=== PATIENT | female | born 1965 | race Caucasian/White ===

== ENCOUNTER → 2016-04-17 | Outpatient (CLI) | payer MEDICARE ==
--- NOTE | 2016-04-17 10:23 | US ---
EXAMINATION TYPE: US liver DATE OF EXAM: 04/17/2016 9:09 AM COMPARISON: CT chest March 27, 2012. CLINICAL HISTORY: [id number] Abnormal results of liver functions studies. Obese patient EXAM MEASUREMENTS: Liver Length: 17.6 cm Gallbladder Wall: 0.3 cm CBD: 0.4 cm Right Kidney: 9.1 x 4.0 x 5.1 cm TECHNOLOGIST IMPRESSION: Pancreas: tail obscured by overlying midline bowel gas Liver: measures in upper limits of normal at 17.6cm, increased attenuation, increased echogenicity t hroughout - probable fatty infiltration, heterogeneous with 2.0cm hypoechoic area near gallbladder -p robable focal sparring Gallbladder: wnl Evidence for sonographic Plata's sign: no CBD: visualized portions wnl, limited distally by overlying midline bowel gas Right Kidney: 2.1 x 2.2 x 1.7cm hypoechoic area superior pole Visualized pancreas is homogeneous without suspicious mass or ductal dilatation. The liver is heterog eneously hyperechoic in appearance without intrahepatic ductal dilatation. Evaluation for focal alexandra s is suboptimal due to the heterogeneity. Limited images right kidney show no gross hydronephrosis. T here appears to be exophytic 2.2 x 2.1 cm round hypoechoic lesion without corresponding abnormality s een on prior CT at this level, further workup advised. IMPRESSION: Diffuse fatty infiltration of liver is redemonstrated. There is new 2.2 cm round exophyti c hypoechoic lesion right kidney in which solid mass or neoplasm needs to be excluded. Further invest igation with multi phase contrast-enhanced CT or MRI is advised.
== END | disposition home or self-care (01) ==
LOC: RADUSWWP 08:46
PROVIDERS: ATTEND Family Medicine
DX: K76.0 Fatty (change of) liver, not elsewhere classified (principal); N28.9 Disorder of kidney and ureter, unspecified
CPT/HCPCS: 76705

== ENCOUNTER → 2016-05-03 | Outpatient (CLI) | payer MEDICARE ==
--- NOTE | 2016-05-03 19:10 | MR ---
MR abdomen with and without contrast HISTORY: Renal lesion, elevated liver function tests Multiplanar multisequence and postcontrast images through the abdomen following 20 cc MultiHance IV. Exam is correlated to ultrasound liver 17 April 2016, chest CT 27 March 2012 The liver is enlarged. There is marked signal drop on out of phase imaging. No focal mass. There is no abnormal enhancement following contrast administration. The lobular appearance to the upp er pole the right kidney is a chronic finding as noted on CT. There is no evident mass or hydronephro sis. No retroperitoneal adenopathy. The adrenal glands are normal. Gallbladder is contracted. Portal vein show normal enhancement. Hepatic veins enhance. Aorta shows normal caliber. Spleen and pancreas, left kidney are essentially unremarkable. Spleen is at the upper limit of normal for size. Possible small cortical cyst associated with the left kidney. Susceptibility artifact likely due to postoperative changes of the lumbar spine is noted incidentally . There is no pleural effusion. IMPRESSION: Fatty infiltration of the liver. No evident renal mass.
== END ==
LOC: RADMRIMAIN 16:38
PROVIDERS: ATTEND Physician Assistant Medical
DX: K76.0 Fatty (change of) liver, not elsewhere classified (principal); N28.9 Disorder of kidney and ureter, unspecified; R93.429 Abnormal radiologic findings on diagnostic imaging of unspecified kidney
CPT/HCPCS: 74183; A9577

== ENCOUNTER 2016-05-30 19:17 | Emergency (ER) | payer MEDICARE ==
[2016-05-30 19:29] VITALS: RESP 18
--- NOTE | 2016-05-30 19:48 | ED ---
General Adult HPI - General Chief complaint: Extremity Injury, Upper Stated complaint: wrist injury Time Seen by Provider: 05/30/16 19:35 Source: patient, RN notes reviewed Mode of arrival: ambulatory Limitations: no limitations - History of Present Illness Initial comments: This is a 50-year-old female who presents with left hand and wrist pain that started around 5 PM. Patient states she was in the kitchen and lost her balance and fell backwards landing on her butt. Patient did not hit her head or lose consciousness. Patient states she used her left hand to brace her fall and now has pain to the ulnar aspect of the left hand and wrist. Patient has noted some mild swelling to the ulnar aspect of the left wrist. Patient states her symptoms are worse with moving the wrist side to side but she is able to flex and extend the wrist with less pain. Patient denies any numbness/tingling or weakness. Patient denies being on any anticoagulants. Patient denies any recent fever, chills, shortness breath, chest pain, abdominal pain, nausea/ vomiting/diarrhea, back pain, hematuria, headache, or visual changes, or any other complaints. - Related Data Home Medications Medication Instructions Recorded Confirmed Hydrocodone/Acetaminophen 1 tab PO BID PRN 04/01/14 10/04/15 [Hydrocodon-Acetaminophen 5-325] Morphine Sulfate [Morphine Sulfate 30 mg PO BID 04/01/14 10/04/15 ER] Venlafaxine HCl [Venlafaxine HCl 150 mg PO QAM 04/01/14 10/04/15 ER] Cholecalciferol [Vitamin D3] 400 unit PO DAILY 10/04/15 10/04/15 Pregabalin [Lyrica] 150 mg PO BID 10/04/15 10/04/15 Pregabalin [Lyrica] 300 mg PO HS 05/30/16 05/30/16 Allergies Allergy/AdvReac Type Severity Reaction Status Date / Time No Known Allergies Allergy Verified 05/30/16 19:29 Review of Systems ROS Statement: Those systems with pertinent positive or pertinent negative responses have been documented in the HPI. ROS Other: All systems not noted in ROS Statement are negative. Past Medical History Past Medical History: COPD, Hyperlipidemia, Osteoarthritis (OA), Pneumonia, Sleep Apnea/CPAP/BIPAP Additional Past Medical History / Comment(s): CHRONIC BACK PAIN History of Any Multi-Drug Resistant Organisms: None Reported Past Surgical History: Adenoidectomy, Back Surgery Additional Past Surgical History / Comment(s): BACK SURGERY X 5. UPPP. [facility]- [facility] Past Anesthesia/Blood Transfusion Reactions: Motion Sickness, Postoperative Nausea & Vomiting (PONV) Past Psychological History: Depression Smoking Status: Never smoker Past Alcohol Use History: None Reported Past Drug Use History: None Reported - Past Family History Father Family Medical History: Cancer Mother Family Medical History: Cancer General Exam - General Exam Comments Initial Comments: General: The patient is awake and alert, in no distress, and does not appear acutely ill. Neck: The neck is supple, there is no tenderness or JVD. Cardiovascular: There is a regular rate and rhythm. No murmur, rub or gallop is appreciated. Respiratory: Lungs are clear to auscultation, respirations are non-labored, breath sounds are equal. No wheezes, stridor, rales, or rhonchi. Musculoskeletal: There is tenderness to palpation over the ulnar aspect of the left wrist with some mild swelling to this area. There is also mild tenderness to the fourth and fifth proximal metacarpals. There is no tenderness to palpation in the anatomical snuffbox. Patient has limited range of motion of the left wrist due to pain but has full range of motion of the left hand. Patient's strength is 5/5 and Sensation intact. Radial pulses 2+ bilaterally and capillary refill is normal at less than 2 seconds. Neurological: A&O x 3. CN II-XII intact, There are no obvious motor or sensory deficits. Coordination appears grossly intact. Speech is normal. Skin: Skin is warm and dry and no rashes or lesions are noted. Psychiatric: Normal mood and affect. Limitations: no limitations Course Vital Signs 05/30/16 19:27 Temperature 98.5 F Pulse Rate 82 Respiratory 18 Rate Blood Pressure 188/105 O2 Sat by Pulse 96 Oximetry Medical Decision Making - Medical Decision Making This is a 50-year-old female presents with left hand and wrist pain after a fall this evening. On physical exam There is tenderness to palpation over the ulnar aspect of the left wrist with some mild swelling to this area. There is also mild tenderness to the fourth and fifth proximal metacarpals. There is no tenderness to palpation in the anatomical snuffbox. Patient has limited range of motion of the left wrist due to pain but has full range of motion of the left hand. Patient's strength is 5/5 and Sensation intact. Radial pulses 2+ bilaterally and capillary refill is normal at less than 2 seconds. X-rays of the right wrist and right hand were done and reviewed showing: X-ray left hand: Possible chip fracture of the triquetrum on the lateral view. Report by Dr. Dempsey. X-ray left wrist: There is probably a chip fracture of the posterior triquetrum. There is some widening of the radial ulnar joint space that could relate to a ligamentous tear. Reported by Dr. Dempsey. I discussed results with patient. Area of possible triquetral fracture correlates to the patient's point of maximal tenderness. A short arm volar splint to the left upper extremity was placed. Neurovascular was rechecked and is intact. Patient was instructed to stay non-weightbearing to the left upper extremity. Patient was instructed to rest, ice, elevate and keep splint on until follow-up with orthopedics. I discussed Tylenol and Motrin for pain. Patient states she has MS Contin and other pain medications that she takes for chronic back pain at home. Discussed with patient to follow-up with orthopedics in the next 1-2 days. Please return to the [facility] symptoms worsen or for any other concerns. Patient was receptive to this plan and patient will be discharged home. I discussed this case with attending physician Dr. Galarza who agrees the plan as stated above. Disposition Clinical Impression: Triquetral chip fracture Disposition: HOME SELF-CARE Condition: Good Instructions: Wrist Fracture in Adults (ED) Additional Instructions: Please rest, ice, elevate, and use splint for support. Please stay nonweightbearing to the left upper extremity. Please keep splint on until follow-up with orthopedics and do not get the splint. Please use over-the- counter Motrin and/or Tylenol for pain. Please use your at home pain medications for breakthrough pain. Please follow up with orthopedics tomorrow or as soon as possible. Please return to the [facility] for any worsening symptoms or for any further concerns. Referrals: Hiro Díaz DO [Primary Care Provider] - 1-2 days Arnold Carvalho MD [Medical Doctor] - 1-2 days Time of Disposition: 20:19
--- NOTE | 2016-05-30 20:06 | XR ---
EXAMINATION TYPE: XR hand complete LT DATE OF EXAM: 05/30/2016 8:00 PM COMPARISON: NONE HISTORY: Pain after a fall TECHNIQUE: 3 views FINDINGS: On the lateral view there is a 5 mm triangular shaped bony density that could be a chip fra cture of the triquetrum. There is no dislocation. Joint spaces are normal. Metacarpals are intact. IMPRESSION: Possible chip fracture of the triquetrum on the lateral view.
--- NOTE | 2016-05-30 20:08 | XR ---
EXAMINATION TYPE: XR wrist complete LT DATE OF EXAM: 05/30/2016 8:00 PM COMPARISON: NONE HISTORY: Pain after a fall TECHNIQUE: 4 views FINDINGS: There is a 5 mm bony density posterior to the mid carpus on the lateral view this could be a chip fracture from the triquetrum or the proximal hamate. There is no dislocation. Carpal joint spa pratik are normal. Scaphoid appears intact. IMPRESSION: There is probably a chip fracture of the posterior triquetrum. There is some widening of the radioulnar joint space that could relate to ligamentous tear.
[2016-05-30 20:29] VITALS: BP 165/78; PULSE 72; TEMP 98.2
== END 2016-05-30 20:28 | disposition home or self-care (01) ==
LOC: EC 19:17
DX: S62.112A Displaced fracture of triquetrum [cuneiform] bone, left wrist, initial encounter for closed fracture (principal); F32.9 Major depressive disorder, single episode, unspecified; W01.0XXA Fall on same level from slipping, tripping and stumbling without subsequent striking against object, initial encounter; Y92.000 Kitchen of unspecified non-institutional (private) residence as the place of occurrence of the external cause; Z79.899 Other long term (current) drug therapy; Z79.891 Long term (current) use of opiate analgesic
CPT/HCPCS: 29125; 99283

== ENCOUNTER → 2017-05-19 | Outpatient (CLI) | payer MEDICARE ==
--- NOTE | 2017-05-19 10:48 | US ---
EXAMINATION TYPE: US venous doppler duplex LE LT DATE OF EXAM: 05/19/2017 9:09 AM COMPARISON: NONE CLINICAL HISTORY: M79.605Pain left lower leg, M79.604Pain right leg. History of left plantar surface laceration 90days ago; patient denies swelling, but c/o left foot numbness, bilateral neuropathy with history of multiple back surgeries and spinal fusion. SIDE PERFORMED: Left TECHNIQUE: The lower extremity deep venous system is examined utilizing real time linear array sonog jose with graded compression, doppler sonography and color-flow sonography. VESSELS IMAGED: Common Femoral Vein Deep Femoral Vein Greater Saphenous Vein * Femoral Vein Popliteal Vein Small Saphenous Vein * Proximal Calf Veins (* superficial vessels) Grayscale, color doppler, spectral doppler imaging performed of the deep veins of the lower extremiti es. There is normal flow, compressibility, vascular waveforms. Left Leg: Negative for DVT IMPRESSION: No sonographic evidence of deep venous arthrosis within the left lower extremity.
--- NOTE | 2017-05-20 10:37 | P.ARTDOP ---
Arterial Doppler LOWER EXTREMITY ARTERIAL DOPPLER: DATE OF SERVICE: 05/19/2017 Reason for study: Bilateral foot pain. Doppler waveforms: Multiphasic bilaterally throughout. Pulse volume recording: []. Pressure gradients: None Ankle-brachial indices: [ Greater than 1 bilaterally]. Toe pressures: [ 132] on the right, [ 136] on the left Impression: [ Normal study].
== END | disposition home or self-care (01) ==
LOC: RADUSWWP 09:06
PROVIDERS: ATTEND Podiatrist
DX: M79.605 Pain in left leg (principal); M79.604 Pain in right leg
CPT/HCPCS: 93922

== ENCOUNTER → 2017-07-21 | Outpatient (CLI) | payer MEDICARE ==
--- NOTE | 2017-07-21 14:28 | XR ---
Right foot and right toes HISTORY: Pain and swelling 3 views of the right foot, 2 views of the toes are submitted. Linear lucency to the distal aspect of the proximal phalanx of the fifth digit of the right foot exte nds into the proximal interphalangeal joint. Linear lucency also present to the proximal aspect of th e proximal phalanx of the fifth digit of the right foot suspicious for fracture. There may be some pe riosteal new bone formation resonant. There is a plantar calcaneal spur. IMPRESSION: Fifth digit fractures of indeterminate age as described, distal fracture is intra-articul ar.
== END | disposition home or self-care (01) ==
LOC: RADXRYALE 13:51
PROVIDERS: ATTEND Physician Assistant
DX: S92.531A Displaced fracture of distal phalanx of right lesser toe(s), initial encounter for closed fracture (principal)

== ENCOUNTER → 2017-08-04 | Outpatient (CLI) | payer MEDICARE ==
--- NOTE | 2017-08-04 14:29 | XR ---
Right toes HISTORY: Fracture 2 views of the right toes correlated to prior dated 07/21/2017 There is periosteal new bone formation at the level the proximal aspect of the proximal phalanx of th e fifth digit of the right foot. IMPRESSION: Healing fracture distal fifth digit right foot
== END | disposition home or self-care (01) ==
LOC: RADXRYALE 12:14
PROVIDERS: ATTEND Family Medicine
DX: S92.531A Displaced fracture of distal phalanx of right lesser toe(s), initial encounter for closed fracture (principal)

== ENCOUNTER → 2017-12-25 | Outpatient (CLI) | payer MEDICARE ==
--- NOTE | 2017-12-25 16:29 | XR ---
Left toes HISTORY: Ecchymosis and pain to second digit 2 views of the left toes are submitted and correlated prior exam 02/16/2012 Some degenerative change present at the metatarsophalangeal joint of the first digit. There is an int ra-articular fracture involving the distal aspect of the proximal phalanx of the second digit of the left foot with minimal displacement. No dislocation. IMPRESSION: Second digit fracture
== END ==
LOC: RADXRYALE 14:02
PROVIDERS: ATTEND Physician Assistant Medical
DX: S62.601A Fracture of unspecified phalanx of left index finger, initial encounter for closed fracture (principal)

== ENCOUNTER → 2018-01-07 | Outpatient (CLI) | payer MEDICARE ==
--- NOTE | 2018-01-07 14:16 | XR ---
EXAMINATION TYPE: XR toes LT DATE OF EXAM: 01/07/2018 COMPARISON: 12/25/2017 HISTORY: Pain TECHNIQUE: 2 views submitted FINDINGS: There is a displaced fracture extending into the articular surface of the proximal phalanx second digit at the level of the PIP joint. Displacement appears slightly increased from the prior ex am. Diffuse osteopenia and arthropathy of all DIP and first MTP joint noted. IMPRESSION: 1. Persistent fracture distal margin proximal phalanx second digit with displacement. Articular exten bronson noted. No callus formation. There appears to be mildly increased displacement relative to the pr evious exam.
== END ==
LOC: RADXRYALE 13:43
PROVIDERS: ATTEND Physician Assistant Medical
DX: S92.912A Unspecified fracture of left toe(s), initial encounter for closed fracture (principal)

== ENCOUNTER → 2018-01-21 | Outpatient (CLI) | payer MEDICARE ==
--- NOTE | 2018-01-21 15:52 | XR ---
Left toes HISTORY: Second toe fracture 2 views of the left toes correlated to prior exam 01/07/2018 No significant interval change is evident. IMPRESSION: Minimally displaced intra-articular second digit fracture at the proximal interphalangeal joint.
== END | disposition home or self-care (01) ==
LOC: RADXRYALE 13:54
PROVIDERS: ATTEND Physician Assistant Medical
DX: S62.611A Displaced fracture of proximal phalanx of left index finger, initial encounter for closed fracture (principal)

== ENCOUNTER → 2018-07-02 | Outpatient (CLI) | payer MEDICARE ==
--- NOTE | 2018-07-02 15:32 | XR ---
Right toes HISTORY:: Third toe, erythema 2 views of the toes are submitted and correlated prior exam 08/04/2017 Soft tissue swelling noted at the third digit. Old fracture of the proximal phalanx of the fifth digi t is again irregular in appearance and is likely healed. Alignment is maintained. IMPRESSION: Soft tissue swelling. Old fifth digit fracture
== END ==
LOC: RADXRYALE 14:18
PROVIDERS: ATTEND Physician Assistant Medical
DX: M79.89 Other specified soft tissue disorders (principal)

== ENCOUNTER → 2018-08-13 | Outpatient (CLI) | payer MEDICARE ==
--- NOTE | 2018-08-13 16:53 | XR ---
Right foot HISTORY: Infection second and third digit, nonpressure ulcer 3 views of the right foot Correlation to prior exam 07/02/2018 Irregularity of the fifth metatarsophalangeal joint, proximal aspect of proximal phalanx of the fifth digit right foot is stable. Soft tissue swelling noted at the third digit, some erosive change prese nt at the tuft of the third digit with lucency in the soft tissues compatible with patient's history of ulcer. No evident periostitis. Plantar calcaneus spur is noted. There is an enthesophyte at the in sertion of the Achilles tendon. IMPRESSION: Findings suspicious for osteomyelitis involving the third digit of the right foot.
== END | disposition home or self-care (01) ==
LOC: RADXRMAIN 14:47
PROVIDERS: ATTEND Podiatrist
DX: L97.512 Non-pressure chronic ulcer of other part of right foot with fat layer exposed (principal)

== ENCOUNTER → 2018-08-20 | Outpatient (CLI) | payer MEDICARE ==
--- NOTE | 2018-08-20 12:02 | MR ---
EXAMINATION TYPE: MR lumbar spine wo/w con DATE OF EXAM: 08/20/2018 COMPARISON: Prior lumbar MRI 03/11/2014 HISTORY: Chronic LBP, radiates into buttocks, prev surgery 2014 TECHNIQUE: Multiplanar, multisequence images of the lumbar spine were acquired utilizing 10 mL intravenous Gadav ist gadolinium contrast. L1-L2: Normal disc appearance without desiccation. No herniation, protrusion or disc bulging. No ca nal stenosis is present. Foramina are patent bilaterally. L2-L3: Normal disc appearance without desiccation. No herniation, protrusion or disc bulging. No ca nal stenosis is present. Foramina are patent bilaterally. L3-L4: Posterior broad-based disc bulge causes mild anterior mass effect on the thecal sac. Facet art hropathy with hypertrophy ligamentum flavum causes minimal posterior lateral mass effect on the theca l sac. There is no significant central stenosis or foraminal encroachment. L4-L5: Posterior broad-based disc bulge causes anterior mass effect on the thecal sac. There is facet arthropathy with hypertrophy of the ligamentum flavum causing some mass effect on the right side. Ci rcumferential extension of endplate disc complex causes some right-sided foraminal encroachment possi tahmina contributed by spinal curvature. No significant spinal stenosis. L5-S1: There is no spinal stenosis. Circumferential extension endplate disc complex encroaches on the foramina left greater than right. There is some asymmetric signal seen in the lateral recess on the left which show some enhancement following contrast administration. Findings are similar to prior exa m. Possible granulation tissue. Left-sided laminectomy change is present. Lumbar segments are stable, lumbar vertebral bodies show anatomic alignment, vertebral body height is maintained, there is multilevel spondylosis with minimal endplate discogenic marrow signal change, l oss of disc height signal greatest at L4-5 and L5-S1 as on prior exam. Posterior lumbar fusion is pre sent L5-S1, susceptibility artifact may obscure some detail. No paraspinal masses are identified. Co nus medullaris has a normal appearance. There is a spinal curvature. IMPRESSION: Abnormality as described is asymmetric at the level of the S1 nerve root on the left, correlate for l eft S1 radiculopathy, may be granulation tissue present. Limitations as described. Degenerative disc disease, spinal curvature. Facet arthropathy. Findings similar to prior exam.
== END | disposition home or self-care (01) ==
LOC: RADMRIMAIN 08:45
PROVIDERS: ATTEND Physician Assistant Medical
DX: M51.36 Other intervertebral disc degeneration, lumbar region (principal); M43.8X6 Other specified deforming dorsopathies, lumbar region; M46.96 Unspecified inflammatory spondylopathy, lumbar region; G63 Polyneuropathy in diseases classified elsewhere; G62.89 Other specified polyneuropathies
CPT/HCPCS: 72158; A9585

== ENCOUNTER → 2018-08-24 | Outpatient (CLI) | payer MEDICARE ==
--- NOTE | 2018-08-25 15:03 | NM ---
EXAMINATION TYPE: NM WBC limited DATE OF EXAM: 08/25/2018 COMPARISON: Right foot 08/13/2018 HISTORY: Osteomyelitis, abnormal plain film of the right foot TECHNIQUE: Following administration of 13 mCi Tc99m Ceretec. Images obtained 4 hour(s) and 24 hour( s) post injection. FINDINGS: There is abnormal radiopharmaceutical uptake present at the level of the third digit of the right cindi t on 4, 24 hour imaging. Exam is rotated so true localization could be limited. IMPRESSION: Findings compatible with osteomyelitis involving what is likely the third digit right foot.
== END | disposition home or self-care (01) ==
LOC: RADNMMAIN 07:01
PROVIDERS: ATTEND Podiatrist
DX: M86.171 Other acute osteomyelitis, right ankle and foot (principal); L97.512 Non-pressure chronic ulcer of other part of right foot with fat layer exposed
CPT/HCPCS: 78805; A9569

== ENCOUNTER → 2018-09-16 | Outpatient (CLI) | payer MEDICARE ==
--- NOTE | 2018-09-17 09:17 | P.PAINCN ---
History of Present Illness - Reason for Consult Consult date: 09/16/18 - History of Present Illness This is initial consultation visit for this 53 years old female with a chronic and severe low back pain started 20 years ago, patient had 5 back surgery, and the last surgery was done 5 years ago she had lumbar laminectomy and fusion, she continued to have severe low back pain with radiation to the buttock, and she has occasional radiation of the pain and numbness in the lower extremity to the ankles, and he toes, she denies any motor or sensory deficit, she denies any change in the bowel movements or urination, no fever or night sweats, she is currently on MS Contin 30 mg twice a day and Lyrica 300 mg twice a day, and [place] 7.5/325 every 8 hours when necessary, she denies any side effect of the medication but she reported the current medication is not helping enough to control her pain Past Medical History Past Medical History: Asthma, Hyperlipidemia, Osteoarthritis (OA) Additional Past Medical History / Comment(s): CHRONIC BACK PAIN, NEUROPATHY OF FEET, FATTY LIVER, EXERCISE INDUCED ASTHMA, GOES TO [facility] FOR INFECTION TOES ON RIGHT FOOT- STATES HEALED-NO DRAINAGE-APPT AT [facility] 09/18/18., HX OF FALLS-NUMBNESS LEFT FOOT AND ANKLE-STATES 4 TOES DO NOT MOVE., STATES RECENT FALL WITH "SKINNED" LEG . History of Any Multi-Drug Resistant Organisms: None Reported Past Surgical History: Adenoidectomy, Back Surgery Additional Past Surgical History / Comment(s): BACK SURGERY X 5 (LAST SURGERY 5 YRS AGO). UPPP. [facility] Past Anesthesia/Blood Transfusion Reactions: Motion Sickness, Postoperative Nausea & Vomiting (PONV) Past Psychological History: No Psychological Hx Reported Smoking Status: Never smoker Past Alcohol Use History: None Reported Past Drug Use History: None Reported - Past Family History Father Family Medical History: Cancer Additional Family Medical History / Comment(s): skin Mother Family Medical History: Cancer Additional Family Medical History / Comment(s): skin Medications and Allergies Home Medications Medication Instructions Recorded Confirmed Type Venlafaxine HCl [Venlafaxine HCl 150 mg PO QAM 04/01/14 09/16/18 History ER] Cholecalciferol [Vitamin D3] 800 unit PO DAILY 10/04/15 09/16/18 History Pregabalin [Lyrica] 300 mg PO BID 05/30/16 09/16/18 History Morphine Sulfate [Ms Contin] 30 mg PO Q12HR 05/08/17 09/16/18 History HYDROcodone/APAP 7.5-325MG [[place] 1 tab PO DIRECTED PRN 09/15/18 09/16/18 History 7.5-325] Allergies Allergy/AdvReac Type Severity Reaction Status Date / Time No Known Allergies Allergy Verified 09/15/18 14:55 Physical Exam REVIEW OF ORGAN SYSTEMS: CONSTITUTIONAL: No fevers or chills. No recent weight loss. EYES: History of troubles with vision. No glasses. HEENT: No difficulties with hearing. No nosebleeds. No difficulty swallowing. RESPIRATORY: Past pneumonia. Denies any troubles with breathing or dyspnea on exertion. CARDIOVASCULAR: Denies any chest pain, palpitations, or recent heart attacks. GASTROINTESTINAL: Denies fatty food intolerance. Has change in bowel habits and gas bloat. GENITOURINARY: Denies any blood in urine. Has increased urinary frequency. NEUROLOGICAL: Denies any numbness or tingling along the distal extremities. No seizure disorders or headaches. MUSCULOSKELETAL: Has back pain, occasional numbness and tingling in the lower extremity SKIN: Past t skin cancer. No rash. PSYCHIATRIC: Denies current depression or suicidal thoughts. ENDOCRINE: Denies current thyroid disorders. Denies any blood sugar glucose intolerance. HEME/LYMPHATIC: Denies any lumps and bumps around the neck. History of deep venous thrombosis. ALLERGY/IMMUNOLOGY: No immunoglobulin therapy. No immune deficiencies. BREAST: Denies current breast lumps, pain or nipple discharge. Physical Examinations : Constitutiona : Cooperative , not in acute distress . HEENT : nech : supple , no Lymphadenopathy , normal thyroid size . eyes : no ptosis , no icterus, no photophobia . ENT : normal of hearing , normal oropharynx , no Thrush . Respiratory : Chest clear to auscultations Bilaterally , no wheezing , no Rhonchi . Cardiovascula : regular rate and rhythem , S1 , S2 , no S3 , no S4. Gastrointestina : abdomen soft no tenderness , bowel sounds , no organomegally . Genitourinary : Defferred . neurologic : Cranial nerve II to XII intact , no focal neurological deffecit . psychatric : alert , oriented X 3 , appropriate affect , intact judgment and insight . Lymphatic : no Lymphadenopathy . musculoskeltal : Lumber spine moter stegnth lower extremities ,thigh and legs 5/5 Right side , 5/5 Left side deep tendon reflexes : normal Knee Jerk , normal ankle Jerk positive lumber facet Loading Test Range of motion of the lumbar spine Flexion 30 degrees, extension 10 degrees strait leg raising test = negative bilaterally Fabere test positive RT and positi ve LT . Sever tenderness over the Sacroiliac joint on the R and L sides Gaenslen test positive bilaterally. Seated flexion test positive bilaterally. Results Comments: MRI of the lumbar spine done 08/20/2018 multilevel bulging disc disease and multilevel Lumbar spondylosis with facet arthropathy,Lumbar fusion at L5-S1 Assessment and Plan Plan: Assessment and plan= chronic low back pain secondary to lumbar failed back surgery syndrome , lumbar spondylosis with lumbar facet arthropathy . Bilateral sacroiliitis, lumbar radiculopathy Patient denies any side effects of the current pain medication and the current treatment/medication helping the patient to do activity of daily living , Diagnoses, prognosis, treatment options, including but not limited to ph ysical therapy, medication management, interventional therapies, and surgery, were discussed with the patient All the questions answered Medication managements= patient should continue to use her current medications Lyrica 300 mg twice a day, MS Contin 30 mg twice a day, [place] 7.5/325 when necessary She is getting prescription refills from her primary care and she will follow up with her for prescription refill. Interventions= patient could benefit from bilateral sacroiliac joint steroid injections under fluoroscopy guidance, in the future if she continued to have pain after the sacroiliac joint steroid injection then we will consider doing caudal epidural with lysis of epidural adhesions under fluoroscopy guidance , Time with Patient: Greater than 30 PQRS Measure Charge Sheet Measure #130: Documentation of Current Meds in Medical Chart: Patient's medications documented in chart Measure #226: Tobacco Use: Screen & Cessation Intervention: Pt not a tobacco user Measure #111: Pneumonia Vaccination: Pneumococcal vaccine administered or previ ously received Measure #47: Advance Care Plan: Advance care planning discussed & documented, pt chose/unable to give Measure #412: Opioid Treatment Agreement: No documentation of signed opioid treatment agreement Measure #408: Opioid Therapy Follow-up Evaluation: Patient had NO f/u eval minimum every 3 months during opioid therapy Measure #317: Preventitive Care & Scrn High Bld Press & F/U: Pre-hypertensive or hypertensive BP documented, pt will f/u with PCP Measure #128: Body Mass Index (BMI) Screening & Follow-up: BMI documented ABOVE normal parameters - f/u documented Measure #131: Pain Assessment & Follow-up: Pain positive & plan documented, Follow-up scheduled Measure #431: Unhealthy Alcohol Use Preventative Care & Scrn: Patient identified as unhealthy alcohol user; counseling given PQRS Narrative: Smoking Status Never smoker Pain Intensity [Back] 9 Scale Used Numeric (1 - 10) Hx Alcohol Use (MH) No Home Medications: Ambulatory Orders Venlafaxine HCl [Venlafaxine HCl ER] 150 mg PO QAM 04/01/14 Cholecalciferol [Vitamin D3] 800 unit PO DAILY 10/04/15 Pregabalin [Lyrica] 300 mg PO BID 05/30/16 Morphine Sulfate [Ms Contin] 30 mg PO Q12HR 05/08/17 HYDROcodone/APAP 7.5-325MG [[place] 7.5-325] 1 tab PO DIRECTED PRN 09/15/18
== END | disposition home or self-care (01) ==
LOC: PNWHC3 09:46
PROVIDERS: ATTEND Specialist
DX: G89.29 Other chronic pain (principal); M47.26 Other spondylosis with radiculopathy, lumbar region; M46.96 Unspecified inflammatory spondylopathy, lumbar region; M96.1 Postlaminectomy syndrome, not elsewhere classified; M46.1 Sacroiliitis, not elsewhere classified; Z98.890 Other specified postprocedural states; Z98.1 Arthrodesis status; Z79.891 Long term (current) use of opiate analgesic; Z79.899 Other long term (current) drug therapy
CPT/HCPCS: 99211

== ENCOUNTER → 2018-09-17 | Outpatient (CLI) | payer MEDICARE ==
--- NOTE | 2018-09-18 11:00 | MM ---
Reason for exam: screening (asymptomatic). Last mammogram was performed 17 years and 9 months ago. History: Patient is postmenopausal and is nulliparous. Physical Findings: A clinical breast exam by your physician is recommended on an annual basis and results should be correlated with mammographic findings. MG 3D Screening Mammo W/Cad Bilateral CC and MLO view(s) were taken. No prior studies available for comparison. There are scattered fibroglandular densities. Asymmetric breast tissue in the left breast. ASSESSMENT: Incomplete: need additional imaging evaluation, BI-RAD 0 RECOMMENDATION: Ultrasound of the left breast. [facility] will attempt to contact patient to return for ultrasound.
== END | disposition home or self-care (01) ==
LOC: RADMAMWWP 11:15
PROVIDERS: ATTEND Family Medicine
DX: Z12.31 Encounter for screening mammogram for malignant neoplasm of breast (principal)
CPT/HCPCS: 77063; 77067

== ENCOUNTER 2018-09-24 09:23 | Day surgery (SDC) | payer MEDICARE ==
[2018-09-24 09:38] VITALS: RESP 18; TEMP 97.8
[2018-09-24] MEDS ORDERED: LACTATED RINGERS 1,000 ML IV ONE (09:38)
[2018-09-24] MEDS ORDERED: LACTATED RINGERS 1,000 ML IV SCH (09:40)
[2018-09-24] MEDS ORDERED: LIDOCAINE 1% 20 ML VIAL (10MG/ML) FOR IV START INTRADERMA ONE (09:40)
--- NOTE | 2018-09-24 10:20 | P.PCN ---
Date of Procedure: 09/24/18 Procedure(s) Performed: Preoperative diagnoses: bilateral sacroilitis Postoperative diagnoses: bilateral sacroilitis. Procedure: bilateral sacroiliac joint steroid injection under fluoroscopic guidance. Surgeon: Alvin Marshall MD Anesthesia: [2 mL of 1% lidocaine and IV sedation per hospital guidelines] Fluoroscopy was used for the procedure and fluoroscopic images were saved to the radiology portion of the patient's chart. EBL: None Procedure indication: The patient had a history of severe chronic low back pain, diagnosed with sacroiliitis unresponsive to conservative treatment. Procedure description: The patient was seen and identified in the preoperative holding area, risks and benefits and alternative of the procedure and possible complications discussed with the patient, and patient agreed with the preceding, patient signed the consent, an IV was started, and vital signs were monitored and were stable throughout the procedure, patient was placed in the prone position on table and the lumbosacral area was prepped and draped with a sterile fashion, vital signs were closely monitored during the procedure, the fluoroscopy camera was placed in the contralateral oblique view on the bilateral sacroiliac joint and the lower part of the joint was identified . Then the skin and subcutaneous tissue was anesthetized using 2 mL of 1% lidocaine then a 22- gauge Quincke-type spinal needle advanced slowly under fluoroscopy and placed in the posterior and inferior border of the right sacroiliac joint, placement confirmed with AP and lateral view, and after appropriate needle placement confirmed and after negative aspiration for heme, 1 mL of Isovue 200 was injected revealing intra-articular spread. Then a solution consisting of 2 ml of ropivacaine 0.5% and 40 mg of Kenalog injected after negative aspiration, no paresthesia during the injection, no resistance to injection, and the needle was removed. The procedure was then repeated on the left side. Total of 80 mg of Kenalog was used for the procedure. Patient tolerated the procedure well without any complication. The patient was returned to supine position after the back was cleaned and a Band-Aid applied, the patient was transported to recovery room in stable condition and monitored for 30 minutes before being discharged home. The patient will follow up with the pain clinic in a few weeks
[2018-09-24] MEDS ORDERED: IV FLUID CONTINUATION 1,000 ML IV ONE (10:24)
[2018-09-24 10:46] VITALS: BP 147/76; PULSE 85
--- NOTE | 2018-09-24 16:42 | FL ---
Fluoroscopy HISTORY: Pain 8 seconds fluoroscopy time supplied to the referring clinician. 4 intraoperative C-arm images docume nt the procedure. See dictated report from anesthesia.
== END 2018-09-24 11:13 | disposition home or self-care (01) ==
LOC: ORPAIN 09:23
PROVIDERS: ATTEND Anesthesiology
DX: M46.1 Sacroiliitis, not elsewhere classified (principal); M96.1 Postlaminectomy syndrome, not elsewhere classified; G89.29 Other chronic pain; M47.26 Other spondylosis with radiculopathy, lumbar region; J45.909 Unspecified asthma, uncomplicated; E78.5 Hyperlipidemia, unspecified; M19.90 Unspecified osteoarthritis, unspecified site; Z98.1 Arthrodesis status; Z79.899 Other long term (current) drug therapy; Z79.891 Long term (current) use of opiate analgesic
CPT/HCPCS: J2250; J3301; J3010; Q9966; G0260; 99152

== ENCOUNTER → 2018-10-01 | Outpatient (CLI) | payer MEDICARE ==
--- NOTE | 2018-10-01 13:40 | USB ---
Reason for exam: additional evaluation requested from abnormal screening. History: Patient is postmenopausal and is nulliparous. Physical Findings: Nurse Summary: asymmetric thickening left breast (nurse kp). US Breast Workup LT Left complete breast ultrasound includes all four quadrants, the retroareolar region and axilla. Finding demonstrates a 0.4 x 0.3 x 0.3cm solid lesion at 4 o'clock, non-definite correlate with mammographic finding. These results were verbally communicated with the patient and result sheet given to the patient on 10/01/18. ASSESSMENT: Incomplete: need additional imaging evaluation, BI-RAD 0 RECOMMENDATION: Special view mammogram of the left breast.
--- NOTE | 2018-10-01 13:43 | MM ---
Reason for exam: additional evaluation requested from abnormal screening. Last mammogram was performed less than 1 month ago. History: Patient is postmenopausal and is nulliparous. MG 3D Work Up W/Cad LT Spot compression CC, spot compression MLO, and LM view(s) were taken of the left breast. Prior study comparison: September 17, 2018, bilateral MG 3d screening mammo w/cad. December 12, 2000, left breast special view mammogram. There are scattered fibroglandular densities. Left upper outer quadrant focal asymmetry at posterior depth persists on additional views as does the circumscribed lower outer quadrant middle depth 9mm bilobed low density mass. These results were verbally communicated with the patient and result sheet given to the patient on 10/01/18. ASSESSMENT: Suspicious, BI-RAD 4 RECOMMENDATION: Stereotactic core biopsy of the left breast. Re: upper outer quadrant far posterior depth focal asymmetry. Called Dr. Díaz with mammographic findings and has scheduled an appointment for the patient for 10/19/18 at 10:[address] Mcleod. PRELIMINARY REPORT CALLED AND FAXED TO DR. MCLEOD ON 10/01/18.
== END | disposition home or self-care (01) ==
LOC: RADUSWWP 10:19
PROVIDERS: ATTEND Family Medicine
DX: R92.8 Other abnormal and inconclusive findings on diagnostic imaging of breast (principal)
CPT/HCPCS: 77065; 76641; G0279; 77061

== ENCOUNTER → 2018-11-24 | Day surgery (SDC) | payer MEDICARE ==
[2018-11-24 13:58] VITALS: BMI 31.9
[2018-11-24 15:33] VITALS: BP 136/85; PULSE 69; RESP 16; TEMP 97.9
--- NOTE | 2018-11-25 08:56 | MM ---
EXAMINATION TYPE: MG stereo VAD BX LT DATE OF EXAM: 11/24/2018 COMPARISON: 10/01/2018 CLINICAL HISTORY: Left breast focal asymmetry for which stereotactic guided biopsy was recommended. TECHNIQUE: Stereotactic guided core biopsy of left breast. FINDINGS: The procedure of stereotactic guided core biopsy was explained to the patient. Benefits, alternatives, and risks were discussed. An informed consent was then obtained. Preprocedural timeout was performed. CC from above was chosen for the appropriate pathway as the focal asymmetry was best visualized on the CC view. Preprocedural localization images were obtained and a 3 a left upper outer quadrant focal asymmetry was redemonstrated. Coordinates were calculated. Subsequently 10 cc of lidocaine without epinephrine was utilized to anesthetize the skin and deeper subcutaneous soft tissues. The needle was advanced to the appropriate depth. Prefire images were obtained ensuring appropriate location. Postfire injection of 10 cc of lidocaine with epinephrine was utilized to anesthetize the site of biopsy. A vacuum assisted biopsy gun was used to obtain 9 core samples. The patient tolerated the procedure well without any immediate complication. The patient was kept in the radiology department for short stay after the procedure and then discharged home in stable condition. Post biopsy mammogram shows the T-shaped biopsy marker to appear in satisfactory position relative to the targeted area of concern on the preprocedure images without migration. IMPRESSION: SUCCESSFUL, UNCOMPLICATED STEREOTACTIC GUIDED CORE BIOPSY OF A FOCAL ASYMMETRY IN THE UPPER OUTER QUADRANT OF THE LEFT BREAST, FULL PATHOLOGY RESULTS TO FOLLOW. SIX-MONTH FOLLOW-UP VERSUS BIOPSY ARE RECOMMENDED PENDING PATHOLOGY RESULTS OF THIS BIOPSY IN REGARDS TO THE UPPER-OUTER QUADRANT BILOBED MID DEPTH LOW DENSITY WELL-CIRCUMSCRIBED MASS SEEN MAMMOGRAPHICALLY AND THE 4 MM SOLID APPEARING MASS ON THE ULTRASOUND OF 10/01/2018 THAT CONTAINS QUESTIONABLE INCREASED THROUGH TRANSMISSION, POSSIBLY RELATED TO A COMPLICATED CYST. Pathology Results: Benign LEFT BREAST, NEEDLE CORE BIOPSIES: Benign breast parenchyma with fibrocystic spectrum changes. Recommendation Follow up mammogram of the left breast in 6 months. 6 month follow up mammogram also regarding the upper outer quadrant bilobed left mass. MTDD
== END ==
LOC: RADMAMWWP 13:22
PROVIDERS: ATTEND Surgery
DX: N60.12 Diffuse cystic mastopathy of left breast (principal); R92.8 Other abnormal and inconclusive findings on diagnostic imaging of breast
CPT/HCPCS: 19081; 88305; A4648; J2001

== ENCOUNTER → 2019-01-06 | Outpatient (CLI) | payer MEDICARE ==
[2019-01-06 12:02] VITALS: PULSE 81; RESP 22
[2019-01-06 12:20] VITALS: BP 163/94
--- NOTE | 2019-01-06 13:52 | P.PAINPG ---
Subjective Progress Note Date: 01/06/19 This is follow visit for this 53 years old female with a chronic and severe low back pain started 20 years ago, patient had 5 back surgery, and the last surgery was done 5 years ago she had lumbar laminectomy and fusion, she continued to have severe low back pain with radiation to the buttock. She had bilateral SI joint injections in August with good relief and presents today for follow-up. After the injection, her pain was much improved for 2 weeks, she try to reduce her Lyrica dose with her PCP, however her pain slowly came back and she has to go back up on her Lyrica dose. She is currently on MS Contin 30 mg twice a day and Lyrica 300 mg twice a day, and [place] 7.5/325 every 8 hours when necessary, she denies any side effect of the medication, this medication written by her private primary care physician. She is looking for longer term solutions for pain Objective - Vital Signs Vital signs: Vital Signs Temp Pulse 81 01/06/19 11:56 Resp 22 01/06/19 11:56 BP 163/94 01/06/19 11:56 Pulse Ox 98 01/06/19 11:56 Intake & Output 01/05/19 01/06/19 01/06/19 18:59 06:59 18:59 Weight 97.522 kg - Exam Vital Signs: Reviewed in EMR GENERAL: Well appearing, in no acute distress, PSYCH: Mood and affect is appropriate. Awake, alert, and oriented SKIN: Skin color, texture, turgor normal, no rashes or lesions HEENT: Normocephalic, atraumatic. EOM intact CV: No pedal edema RESP: Respirations are unlabored, no audible wheezing GI: Abdomen non-distended MUSCULOSKELETAL: Bilateral upper and lower extremity strength is normal and symmetric. No atrophy or tone abnormalities are noted. Buttocks: Pain to palpation bilateral PSIS, Nicki's test and Seaforth's test are positive Extremities: Peripheral joint ROM is full and pain free without obvious instability or laxity in all four extremities. No edema or skin discolorations noted. Gait: Gait is anantalgic NEUR: No loss of sensation is noted. Cranial nerves are grossly intact. Assessment and Plan Assessment: Assessment: 1. Bilateral SI joint dysfunction 2. Chronic opiate use Plan: 1. Explanation: I explained to her the pharmacodynamics of steroid injections. I explained to her that we could potentially do an RFA in the future which could help with pain longer-term 2. Opioid agreement: None, she is trying to wean down from opiates for PCP 3. Counseling: The patient was counseled extensively on BODY MASS INDEX, EXERCISE. Specifically, the patient was instructed regarding the importance of weight control, and exercise in the context of both chronic pain and overall health. 4. Procedures: Repeat bilateral SI joint injection, if this provides good relief we'll look at SI RFA 5. Consultations: None 6. Investigations: Reviewed 7. Medications: Encouraged patient to have discussions with primary care physician 8. Disposition: Bilateral SI joint injection , PQRS Measure Charge Sheet Measure #226: Tobacco Use: Screen & Cessation Intervention: Pt not a tobacco user Measure #111: Pneumonia Vaccination: Pneumococcal vaccine administered or previously received Measure #47: Advance Care Plan: Advance care planning discussed & documented, pt chose/unable to give Measure #412: Opioid Treatment Agreement: No documentation of signed opioid treatment agreement Measure #408: Opioid Therapy Follow-up Evaluation: Patient had NO f/u eval minimum every 3 months during opioid therapy Measure #131: Pain Assessment & Follow-up: Pain positive & plan documented, Follow-up scheduled Measure #431: Unhealthy Alcohol Use Preventative Care & Scrn: Patient not identified as an unhealthy alcohol user PQRS Narrative: Smoking Status Never smoker Blood Pressure 163/94 Pain Intensity [Lower Back] 4 Scale Used Numeric (1 - 10) Hx Alcohol Use (MH) No Home Medications: Ambulatory Orders Pregabalin [Lyrica] 300 mg PO BID 05/30/16 Morphine Sulfate [Ms Contin] 30 mg PO Q12HR 05/08/17 HYDROcodone/APAP 7.5-325MG [[place] 7.5-325] 1 tab PO BID PRN 09/15/18 DULoxetine HCL [Cymbalta] 60 mg PO DAILY 11/10/18 rOPINIRole HCL [Requip] 0.25 mg PO DAILY PRN 11/10/18 Controlled Substance Measures - Controlled Substance Measures Is patient prescribed a controlled substance at discharge?: No
== END | disposition home or self-care (01) ==
LOC: PNWHC3 11:50
PROVIDERS: ATTEND Student in an Organized Health Care Education/Training Program
DX: M53.3 Sacrococcygeal disorders, not elsewhere classified (principal); Z98.1 Arthrodesis status; Z79.891 Long term (current) use of opiate analgesic; Z79.899 Other long term (current) drug therapy
CPT/HCPCS: 99211

== ENCOUNTER 2019-01-20 08:25 | Day surgery (SDC) | payer MEDICARE ==
[2019-01-19 09:51] VITALS: BMI 32.6
[~2019-01-20 08:25] MED LIST: LACTATED RINGERS 1,000 ML IV SCH
[2019-01-20 09:07] VITALS: TEMP 97.9
[2019-01-20] MEDS ORDERED: LIDOCAINE 1% 20 ML VIAL (10MG/ML) FOR IV START INTRADERMA ONE (09:15)
[2019-01-20] MEDS ORDERED: LACTATED RINGERS 1,000 ML IV ONE (10:03)
[2019-01-20 10:07] VITALS: RESP 16
--- NOTE | 2019-01-20 10:07 | P.PCN ---
Date of Procedure: 01/20/19 Procedure(s) Performed: Preoperative diagnoses: bilateral sacroilitis Postoperative diagnoses: bilateral sacroilitis. Procedure: bilateral sacroiliac joint steroid injection under fluoroscopic guidance. Surgeon: Alvin Marshall MD Anesthesia: [2 mL of 1% lidocaine and IV sedation per hospital guidelines], sedation time 11 minutes Fluoroscopy was used for the procedure and fluoroscopic images were saved to the radiology portion of the patient's chart. EBL: None Procedure indication: The patient had a history of severe chronic low back pain, diagnosed with sacroiliitis unresponsive to conservative treatment. Procedure description: The patient was seen and identified in the preoperative holding area, risks and benefits and alternative of the procedure and possible complications discussed with the patient, and patient agreed with the preceding, patient signed the consent, an IV was started, and vital signs were monitored and were stable throughout the procedure, patient was placed in the prone position on table and the lumbosacral area was prepped and draped with a sterile fashion, vital signs were closely monitored during the procedure, the fluoroscopy camera was placed in the contralateral oblique view on the bilateral sacroiliac joint and the lower part of the joint was identified . Then the skin and subcutaneous tissue was anesthetized using 2 mL of 1% lidocaine then a 22- gauge Quincke-type spinal needle advanced slowly under fluoroscopy and placed in the posterior and inferior border of the right sacroiliac joint, placement confirmed with AP and lateral view, and after appropriate needle placement confirmed and after negative aspiration for heme, 1 mL of Isovue 200 was injected revealing intra-articular spread. Then a solution consisting of 2 ml of ropivacaine 0.5% and 40 mg of Kenalog injected after negative aspiration, no paresthesia during the injection, no resistance to injection, and the needle was removed. The procedure was then repeated on the left side. Total of 80 mg of Kenalog was used for the procedure. Patient tolerated the procedure well without any complication. The patient was returned to supine position after the back was cleaned and a Band-Aid applied, the patient was transported to recovery room in stable condition and monitored for 30 minutes before being discharged home. The patient will follow up with the pain clinic in a few weeks
--- NOTE | 2019-01-20 10:08 | FL ---
EXAMINATION TYPE: FL guided pain mgmt statistic DATE OF EXAM: 01/20/2019 HISTORY: Flouroscopy time 7 seconds of fluoroscopy provided. IMPRESSION: 1. Fluoroscopy time.
[2019-01-20 10:34] VITALS: BP 113/53; PULSE 66
== END 2019-01-20 10:50 | disposition home or self-care (01) ==
LOC: ORPAIN 08:25
PROVIDERS: ATTEND Anesthesiology
DX: G89.29 Other chronic pain (principal); M46.1 Sacroiliitis, not elsewhere classified; M54.16 Radiculopathy, lumbar region; Z98.1 Arthrodesis status; Z79.891 Long term (current) use of opiate analgesic; Z79.899 Other long term (current) drug therapy
CPT/HCPCS: J2250; J3301; J3010; Q9966; G0260; 99152

== ENCOUNTER → 2019-02-17 | Outpatient (CLI) | payer MEDICARE ==
[2019-02-17 12:07] VITALS: BP 140/78; PULSE 70; RESP 16
--- NOTE | 2019-02-18 14:28 | P.PAINPG ---
Subjective Progress Note Date: 02/17/19 This is follow-up visit for this 53 years old female with a chronic history of severe low back pain, he is very close with bilateral sacroiliitis, lumbar spondylosis with lumbar facet arthropathy, and failed back surgery syndrome and lumbar area, status post bilateral sacroiliac joint steroid injections 2, he gets significant improvement of her low back pain after sacroiliac joint steroid injection, and improved ability to function after each injection, the pain relief was only for a few weeks, and she is complaining of severe low back pain and radiating to the bilateral buttock area, he is able to ambulate , but any activity increases her pain, she continued to use MS Contin 30 mg twice a day, N orco 7.5/325 twice a day, Lyrica 300 mg twice a day,she denies any side effects of the medication, and she is getting benefit from this medication, she denies any excessive drowsiness and sleepiness, she is getting prescription refill from the primary care Objective - Vital Signs Vital signs: Vital Signs Temp Pulse 70 02/17/19 11:52 Resp 16 02/17/19 11:52 BP 140/78 02/17/19 11:52 Pulse Ox 97 02/17/19 11:52 Intake & Output 02/17/19 02/18/19 02/18/19 18:59 06:59 18:59 Weight 107.048 kg - Exam Physical Examinations : -Constitutiona : Cooperative , not in acute distress . -HEENT : nech : supple , no Lymphadenopathy , normal thyroid size . : eyes : no ptosis , no icterus, no photophobia . - neurologic : Cranial nerve II to XII intact , no focal neurological deffecit . -psychatric : alert , oriented X 3 , appropriate affect , intact judgment and insight . -Lymphatic : no Lymphadenopathy . - musculoskeltal : Lumber spine moter stegnth lower extremities ,thigh and legs 5/5 Right side , 5/5 Left side deep tendon reflexes : normal Knee Jerk , normal ankle Jerk lumber facet Loading Test =positive Right , positive Left Range of motion of the lumbar spine Flexion 30 degrees, extension 10 degrees strait leg raising test = positive at 45 degree Fabere test= positive Right , and positive LT . Sever tenderness over the Sacroiliac joint on the Right , and Left sides Gaenslen test= positive right ,and positive left . Seated flexion test= positive right ,and positive Left . MRI of the lumbar spine= L3 4 and L45 bulging disc disease and facet hypertrophic,L5-S1 left laminectomy Assessment and Plan Plan: assessment and plan=1-bilateral sacroiliitis. She had good result after bilateral sacroiliac joint steroid injection, he had significant improvement of her low back pain after each injection, and she was able to function better after the sacroiliac joint injection. 2-lumbar spondylosis with lumbar facet arthropathy. 3-postlaminectomy pain syndrome lumbar area. Patient will be good candidate to have radiofrequency thermocoagulation of the sacroiliac joint (RFA L5-S1 dorsal ramus, ,and RFA of the lateral branches of S1, S2,S3 will do the right side first. she'll continue on [place] 7.5/325, MS Contin 30 mg twice a day, Lyrica 300 mg twice a day,we will follow up with the PCP Time with Patient: Less than 30 PQRS Measure Charge Sheet Measure #130: Documentation of Current Meds in Medical Chart: Patient's medications documented in chart Measure #226: Tobacco Use: Screen & Cessation Intervention: Pt not a tobacco user Measure #111: Pneumonia Vaccination: Pneumococcal vaccine NOT administered or previously given Measure #47: Advance Care Plan: Advance care planning discussed & documented, pt chose/unable to give Measure #412: Opioid Treatment Agreement: No documentation of signed opioid marifer atment agreement Measure #408: Opioid Therapy Follow-up Evaluation: Patient had NO f/u eval minimum every 3 months during opioid therapy Measure #317: Preventitive Care & Scrn High Bld Press & F/U: Normal blood pressure, f/u not required Measure #128: Body Mass Index (BMI) Screening & Follow-up: BMI documented ABOVE normal parameters - f/u documented Measure #131: Pain Assessment & Follow-up: Pain positive & plan documented, Follow-up scheduled Measure #431: Unhealthy Alcohol Use Preventative Care & Scrn: Patient not identified as an unhealthy alcohol user PQRS Narrative: Smoking Status Never smoker Blood Pressure 140/78 Pain Intensity [Lower 4 Posterior Back] Scale Used Numeric (1 - 10) Hx Alcohol Use (MH) No Home Medications: Ambulatory Orders Pregabalin [Lyrica] 300 mg PO BID 05/30/16 Morphine Sulfate [Ms Contin] 30 mg PO Q12HR 05/08/17 HYDROcodone/APAP 7.5-325MG [[place] 7.5-325] 1 tab PO BID PRN 09/15/18 DULoxetine HCL [Cymbalta] 60 mg PO DAILY 11/10/18 rOPINIRole HCL [Requip] 0.25 mg PO DAILY PRN 11/10/18 Controlled Substance Measures - Controlled Substance Measures Is patient prescribed a controlled substance at discharge?: No
== END ==
LOC: PNWHC3 11:45
PROVIDERS: ATTEND Specialist
DX: M46.1 Sacroiliitis, not elsewhere classified (principal); M47.816 Spondylosis without myelopathy or radiculopathy, lumbar region; M46.96 Unspecified inflammatory spondylopathy, lumbar region; M96.1 Postlaminectomy syndrome, not elsewhere classified; Z79.891 Long term (current) use of opiate analgesic; Z79.899 Other long term (current) drug therapy
CPT/HCPCS: 99211

== ENCOUNTER → 2019-03-08 | Outpatient (CLI) | payer MEDICARE ==
[2019-03-08 14:27] VITALS: BP 158/94; PULSE 73; RESP 16; TEMP 98.1; BMI 35.9
--- NOTE | 2019-03-08 15:52 | P.HPBAR ---
Bariatric H&P - History & Physicial H&P Date: 03/08/19 History & Physicial: Visit/CC: initial Patient initial contact: Initial weight: 107.104 kg Initial weight in pounds: 236.13 Height: 5 ft 8 in Initial BMI: 35.9 Last weight: Current weight: 107.104 kg Current weight in pounds: 236.13 Current BMI: 35.9 Baxter body weight (based on NIH guidelines): 63.503 kg Excess body weight loss: 0.0% The patient is a 53 year-old F who presents for Bariatric Assessment. Patient presents today for presurgical consultation patient is a lifetime problems obesity. Her BMI is 36. Patient's excellent understanding sleeve gastrectomy. We went over the risks and benefits of the procedure including possible injury the stomach liver spleen. She felt with possible risk of gastric staple line disruption, bleeding or scarring. Past Medical History Past Medical History: Osteoarthritis (OA) Additional Past Medical History / Comment(s): valerio neuropathy-post back surgery,CHRONIC BACK PAIN,fatty liver History of Any Multi-Drug Resistant Organisms: None Reported Past Surgical History: Adenoidectomy, Back Surgery Additional Past Surgical History / Comment(s): BACK SURGERY X 5. UP3. 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 Past Psychological History: Depression Smoking Status: Never smoker Past Alcohol Use History: None Reported Past Drug Use History: None Reported - Past Family History Father Family Medical History: Cancer Additional Family Medical History / Comment(s): skin Mother Family Medical History: Cancer Additional Family Medical History / Comment(s): skin Surgical - Exam Vital Signs Temp Pulse Resp BP 98.1 F 73 16 158/94 03/08/19 14:24 03/08/19 14:24 03/08/19 14:24 03/08/19 14:24 - General well developed, well nourished, no distress - Eyes PERRL - ENT normal pinna - Neck no masses - Respiratory normal expansion - Cardiovascular Rhythm: regular - Abdomen Abdomen: soft, non tender Bariatric Assessment & Plan Plan: Morbid obesity, BMI 36. Patient will undergo EGD and follow-up in clinic after this is performed Bariatric Checklist Checklist: Plan: Checklist: EGD: 1. Hiatal hernia: 2. H. Pylori: HgbA1c: Vitamin D: Smoking: Never smoker Primary care physician referral: crissy Psychiatry clearance: Cardiology clearance: Sleep study: Diet journal: VTE risk score: VTE risk level: Rehab needs at discharge:
[2019-03-08 16:03] LABS: HCT 40.6 % (34.0-46.0); HGB 13.3 gm/dL (11.4-16.0); MCH 29.5 pg (25.0-35.0); MCHC 32.8 g/dL (31.0-37.0); MCV 90.1 fL (80.0-100.0); Mean Platelet Volume 7.3; Platelet Count 275 k/uL (150-450); RDW 13.2 % (11.5-15.5); WBC 6.3 k/uL (3.8-10.6)
[2019-03-09 02:29] LABS: African American GFR (CKD) 96.9 (60.0-200.0); Albumin 4.6 g/dL (3.80-4.90); Albumin/Globulin Ratio 1.7 (1.60-3.17); Anion Gap 9.3 mmol/L (4.00-12.00); BUN/Creat Ratio 23.75 Ratio (12.00-20.00); Calcium 9.6 mg/dL (8.7-10.3); Carbon Dioxide 27.7 mmol/L (21.6-31.8); Globulin 2.7 g/dL (1.6-3.3); Non-African American GFR(CKD) 83.6 (60.0-200.0); Potassium 4.3 mmol/L (3.5-5.5); Total Bilirubin 0.3 mg/dL (0.3-1.2); Total Protein 7.3 g/dL (6.2-8.2)
[2019-03-09 02:59] LABS: Folate, Serum 19.4 ng/mL
[2019-03-09 03:57] LABS: Hemoglobin A1C 5.2 % (4.0-6.0)
== END | disposition home or self-care (01) ==
LOC: BARWHC3 14:03
PROVIDERS: ATTEND Surgery
DX: E66.01 Morbid (severe) obesity due to excess calories (principal); Z68.36 Body mass index [BMI] 36.0-36.9, adult; E55.9 Vitamin D deficiency, unspecified
CPT/HCPCS: 84425; 80053; 82607; 82746; 85027; 82306; 83036; 93005; G0463; 99211

== ENCOUNTER → 2019-03-16 | Outpatient (CLI) | payer MEDICARE ==
--- NOTE | 2019-03-17 12:00 | ECHOF ---
Referral Reason:[id number] Cardiac murmur MEASUREMENTS -------- HEIGHT: 165.1 cm WEIGHT: 104.3 kg BP: RVIDd: 3.6 cm (< 3.3) IVSd: 1.1 cm (0.6 - 1.1) LVIDd: 4.3 cm (3.9 - 5.3) LVPWd: 1.0 cm (0.6 - 1.1) IVSs: 1.6 cm LVIDs: 2.7 cm LVPWs: 1.5 cm LA Diam: 3.7 cm (2.7 - 3.8) LAESV Index (A-L): 27.44 ml/m Ao Diam: 2.6 cm (2.0 - 3.7) AV Cusp: 1.8 cm (1.5 - 2.6) LA Diam: 4.0 cm (2.7 - 3.8) MV EXCURSION: 12.495 mm (> 18.000) MV EF SLOPE: 54 mm/s (70 - 150) EPSS: 0.6 cm MV E Erlin: 1.07 m/s MV DecT: 219 ms MV A Erlin: 0.86 m/s MV E/A Ratio: 1.25 RAP: 5.00 mmHg RVSP: 19.40 mmHg FINDINGS -------- Sinus rhythm. This was a technically good study. LV size, wall thickness and systolic function are normal, with an EF greater than 55%. The left kallie tricular size is normal. The right ventricle is normal in size. The left atrial size is normal. Normal LA size by volume 22+/-6 ml/m2. The right atrial size is normal. There is mild aortic valve sclerosis. There is no evidence of aortic regurgitation. Mild mitral annular calcification present. Mild mitral regurgitation is present. Mild tricuspid regurgitation present. Right ventricular systolic pressure is normal at < 35 mmHg. There is no evidence of pulmonary hypertension. There is no pulmonic regurgitation present. The aortic root size is normal. There is no pericardial effusion. CONCLUSIONS -------- 1. Sinus rhythm. 2. This was a technically good study. 3. LV size, wall thickness and systolic function are normal, with an EF greater than 55%. 4. The left ventricular size is normal. 5. The right ventricle is normal in size. 6. The left atrial size is normal. 7. Normal LA size by volume 22+/-6 ml/m2. 8. The right atrial size is normal. 9. There is mild aortic valve sclerosis. 10. Mild mitral annular calcification present. 11. Mild mitral regurgitation is present. 12. Mild tricuspid regurgitation present. 13. Right ventricular systolic pressure is normal at < 35 mmHg. 14. There is no evidence of pulmonary hypertension. 15. There is no pulmonic regurgitation present. 16. The aortic root size is normal. 17. There is no pericardial effusion. [employer] STRAIGHTENER: Georgette Harper RDCS
== END | disposition home or self-care (01) ==
LOC: RADECHMAIN 14:50
PROVIDERS: ATTEND Physician Assistant Medical
DX: I08.3 Combined rheumatic disorders of mitral, aortic and tricuspid valves (principal)
CPT/HCPCS: 93306

== ENCOUNTER 2019-03-18 08:46 | Day surgery (SDC) | payer MEDICARE ==
[2019-03-16 10:54] VITALS: BMI 34.9
[~2019-03-18 08:46] MED LIST changes: +LIDOCAINE 4% (PF) 5 ML AMP ONE; +MIDAZOLAM 2 MG/2 ML VIAL ONE; +fentaNYL (PF) 50 MCG/ML 2 ML AMP ONE
[2019-03-18 09:51] VITALS: TEMP 98.6
[2019-03-18] MEDS ORDERED: LIDOCAINE 1% 20 ML VIAL (10MG/ML) FOR IV START INTRADERMA ONE (10:04)
--- NOTE | 2019-03-18 11:11 | P.PCN ---
Date of Procedure: 03/18/19 Procedure(s) Performed: Bipolar Radiofrequency Ablation of Dorasal Ramus of L5, Lateral Branches of S1 and S2 ATTENDING PHYSICIAN: Alvin Marshall MD PREOPERATIVE DIAGNOSIS: Right Sacroiliac Joint Pain/ sacroilitis POSTOPERATIVE DIAGNOSIS: same PROCEDURE PERFORMED: Bipolar Radiofrequency Ablation of Lateral Branches of S1, S2 and S3 , unipolar radiofrequency ablation of Dorasal Ramus of L5 SIDE: right IV SEDATION moderate sedation with Versed and fentanyl , sedation time 38 minutes ESTIMATED BLOOD LOSS: None FLUOROSCOPY WAS USED. Images were saved in the radiology portion of the chart. INDICATIONS FOR PROCEDURE: Patient has a clinical picture consistent with bilateral sacroiliac joint dysfunction and has responded well to SI joint injections in the past. PROCEDURE AND FINDINGS: The patient was greeted in the pre procedure holding area. The risk, benefits and alternatives to the procedure were again reviewed with the patient and written informed consent was placed in the chart. Prior to the procedure a time out was completed, verifying correct patient, procedure, site, positioning, and implants and/or special equipment. An IV line was placed. The patient was taken to the procedure room and positioned prone on the fluoroscopy table. Routine monitors were applied incl uding EKG leads, blood pressure cuff, and pulse oximetry. The skin was prepped with chlorhexidine and draped in the usual sterile fashion. A fluoroscopic AP view was used to identify the sacral ala and the right SI joint with the associated S1-S3 foramens medial to the SI joint line. A marker was used to steph the sacral ala and the lateral aspects of the S1-S3 foramen. Giraldo were made 1 cm apart. Then overlying skin and subcutaneous tissues were anesthetized using a 25-gauge 1-1/2-inch needle with 1% preservative free lidocaine for a total volume of 10 mls. Under AP and lateral fluorscopic views, 18 gauge 100 mm Cosman Bipolar RF needles with a 10 mm active tip were inserted at the L5 dorsal ramus and the lateral aspects of the S1, S2 and S3 foramens and advanced until it touched os. Confirmation of position was then made with a lateral fluoroscopic view to ensure that the tips were posterior to the posterior plate of the sacrum. Motor stimulation at 2 Hz and up to 2V was conducted between sequential probes. There was no observable motor movement in the lower extremities and the patient confirmed this by self-report. After satisfactory motor testing was completed at each level, approximately 0.5 mL of 4% Lidocaine was injected to anesthetize the radiofrequency ablation target. Subsequently, bipolar radiofrequency ablation was carried out at each of the aforementioned locations with a probe temperature set to 90C for 150 seconds. A total of 8 bipolar radiofrequency lesions was done. Unipolar radiofrequency ablation was carried out at the dorsal ramus of L5. Following lesioning the needles were removed. The needle insertion site was dressed appropriately. The patient was taken to the recovery room where they were monitored for a brief period of time. They tolerated the procedure well and were discharged home in stable condition with post procedural instructions. Follow-up will be for left-sided procedure in 2 weeks COMPLICATIONS: None
[2019-03-18] MEDS ORDERED: IV FLUID CONTINUATION 200 ML IV ONE (11:59)
[2019-03-18 12:07] VITALS: RESP 18
[2019-03-18 12:10] VITALS: BP 126/79; PULSE 79
--- NOTE | 2019-03-18 12:23 | FL ---
EXAMINATION TYPE: FL guided pain mgmt statistic DATE OF EXAM: 03/18/2019 HISTORY: Flouroscopy time 10 seconds of fluoroscopy provided. IMPRESSION: 1. Fluoroscopy time.
== END 2019-03-18 12:10 | disposition home or self-care (01) ==
LOC: ORPAIN 08:46
PROVIDERS: ATTEND Anesthesiology
DX: G89.29 Other chronic pain (principal); M46.1 Sacroiliitis, not elsewhere classified; M96.1 Postlaminectomy syndrome, not elsewhere classified; M47.896 Other spondylosis, lumbar region; Z79.891 Long term (current) use of opiate analgesic; Z79.899 Other long term (current) drug therapy
CPT/HCPCS: 64640; 64635; J2001; J2250; J3010; 99152; 99153

== ENCOUNTER → 2019-03-19 | Day surgery (SDC) | payer MEDICARE ==
[~2019-03-19] MED LIST changes: +LIDOCAINE 1% 20 ML VIAL (10MG/ML) FOR IV START INTRADERMA PRN; +LIDOCAINE 1% INJ 10MG/ML (20 ML MDV) ONE; -LIDOCAINE 4% (PF) 5 ML AMP ONE; -MIDAZOLAM 2 MG/2 ML VIAL ONE; +PROPOFOL 10 MG/ML 20 ML VIAL IV ONE; -fentaNYL (PF) 50 MCG/ML 2 ML AMP ONE
[2019-03-19 08:54] VITALS: TEMP 97.8
--- NOTE | 2019-03-19 10:29 | P.GSHP ---
History of Present Illness H&P Date: 03/19/19 Chief Complaint: GERD, morbid obesity. This is a 53 female undergoing workup for sleeve gastrectomy. Patient is morbidly obese. Her BMI is 36. She had issues with GERD. Past Medical History Past Medical History: Osteoarthritis (OA) Additional Past Medical History / Comment(s): valerio neuropathy-post back surgery,CHRONIC BACK PAIN,fatty liver History of Any Multi-Drug Resistant Organisms: None Reported Past Surgical History: Adenoidectomy, Back Surgery Additional Past Surgical History / Comment(s): BACK SURGERY X 5. UP3. 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 Past Psychological History: Depression Smoking Status: Never smoker Past Alcohol Use History: None Reported Past Drug Use History: None Reported - Past Family History Father Family Medical History: Cancer Additional Family Medical History / Comment(s): skin Mother Family Medical History: Cancer Additional Family Medical History / Comment(s): skin Medications and Allergies Home Medications Medication Instructions Recorded Confirmed Type Pregabalin [Lyrica] 300 mg PO BID 05/30/16 03/19/19 History Morphine Sulfate [Ms Contin] 30 mg PO Q12HR 05/08/17 03/19/19 History HYDROcodone/APAP 7.5-325MG [[place] 1 tab PO BID PRN 09/15/18 03/19/19 History 7.5-325] DULoxetine HCL [Cymbalta] 60 mg PO DAILY 11/10/18 03/19/19 History rOPINIRole HCL [Requip] 0.25 mg PO DAILY PRN 11/10/18 03/19/19 History Allergies Allergy/AdvReac Type Severity Reaction Status Date / Time No Known Allergies Allergy Verified 03/19/19 08:47 Surgical - Exam Vital Signs Temp Pulse Resp BP Pulse Ox 97.8 F 74 16 153/95 97 03/19/19 08:51 03/19/19 08:51 03/19/19 08:51 03/19/19 08:51 03/19/19 08:51 - General well developed, well nourished, no distress - Eyes PERRL - ENT normal pinna - Neck no masses - Respiratory normal expansion - Cardiovascular Rhythm: regular - Abdomen Abdomen: soft, non tender Assessment and Plan Assessment: GERD. We'll perform EGD
--- NOTE | 2019-03-19 10:41 | P.OP ---
Date of Procedure: 03/19/19 Preoperative Diagnosis: GERD Morbid obesity Postoperative Diagnosis: Antral gastritis Morbid obesity, BMI 36 Procedure(s) Performed: EGD Anesthesia: MAC Surgeon: Jered Bernal Pathology: other (Antral) Condition: stable Disposition: PACU Description of Procedure: The patient's placed on the endoscopy table in the lateral position. She received IV sedation. The gastro-/oropharynx and passed in the esophagus and stomach. Scope was placed through the pylorus. The first and second portion of duodenum appeared normal. Scope was then brought back the antrum this. Mildly inflamed. A biopsies performed. The scope was unretroflexed and remainder stomach appeared normal. There was no significant hiatal hernia. The GE junction was at 40 cm. The distal esophagus appeared normal. The proximal esophagus appeared normal. Scope was then withdrawn from the patient.
[2019-03-19 10:46] VITALS: RESP 14
[2019-03-19 11:08] VITALS: BP 126/70; PULSE 86
== END ==
LOC: ORWHC2ENDO 08:35
PROVIDERS: ATTEND Surgery
DX: K29.50 Unspecified chronic gastritis without bleeding (principal); K21.9 Gastro-esophageal reflux disease without esophagitis; E66.01 Morbid (severe) obesity due to excess calories; Z68.36 Body mass index [BMI] 36.0-36.9, adult; G62.9 Polyneuropathy, unspecified; M19.90 Unspecified osteoarthritis, unspecified site; K76.0 Fatty (change of) liver, not elsewhere classified; G89.29 Other chronic pain; M54.9 Dorsalgia, unspecified; F32.9 Major depressive disorder, single episode, unspecified; Z79.899 Other long term (current) drug therapy; Z98.890 Other specified postprocedural states; Z80.8 Family history of malignant neoplasm of other organs or systems
CPT/HCPCS: 88305; 43239; J2001; J2704

== ENCOUNTER 2019-04-22 18:20 | Emergency (ER) | payer MEDICARE ==
[2019-04-22 18:51] VITALS: RESP 18
[2019-04-22] MEDS ORDERED: METOCLOPRAMIDE 5 MG/ML 2 ML VIAL IVP STA (19:09)
[2019-04-22] MEDS ORDERED: diphenhydrAMINE 50 MG/ML 1 ML VIAL IVP STA (19:09)
[2019-04-22] MEDS ORDERED: MORPHINE SULFATE 4 MG/ML SYRINGE IV STA (19:09)
[2019-04-22] MEDS ORDERED: ACETAMINOPHEN TAB 500 MG TAB PO STA (19:09)
[2019-04-22 19:43] LABS: Basophils # (A) 0.1 k/uL (0-0.2); Basophils % (A) 0 %; Eosinophils # (A) 0.1 k/uL (0-0.7); Eosinophils % (A) 1 %; HCT 41.1 % (34.0-46.0); HGB 14.1 gm/dL (11.4-16.0); Lymphocytes # (A) 0.9 k/uL (1.0-4.8); Lymphocytes % (A) 7 %; MCH 30.4 pg (25.0-35.0); MCHC 34.2 g/dL (31.0-37.0); MCV 88.8 fL (80.0-100.0); Mean Platelet Volume 7.2; Monocytes # (A) 0.4 k/uL (0-1.0); Monocytes % (A) 3 %; Neutrophils # (A) 12.1 k/uL (1.3-7.7); Neutrophils % (A) 87 %; Platelet Count 325 k/uL (150-450); RBC 4.63 m/uL (3.80-5.40); RDW 13.7 % (11.5-15.5); WBC 13.9 k/uL (3.8-10.6)
--- NOTE | 2019-04-22 19:43 | ED ---
General Adult HPI - General Chief complaint: Headache Stated complaint: Headache Time Seen by Provider: 04/22/19 18:53 Source: patient, RN notes reviewed, old records reviewed Mode of arrival: ambulatory Limitations: no limitations - History of Present Illness Initial comments: 53-year-old female patient with past history of migraine headaches once ED for chief complaint of migraine headaches. Patient also reports that she has been fighting a cold for approximately 2 weeks. States that she has a nonproductive cough. Reports that this morning the migraine headache started on the right hemisphere of her head. Reports that does feel similar to migraine headaches of the past. Reports a slow and insidious onset, denies thunderclap. Post that she is having some photophobia. States that she has had nausea without emesis. Reports that she did feel warm however denies taking her temperature with a thermometer. Denies abdominal pain or chest pain. Denies any chance of being . Systemic: Pt denies fatigue, fever/chills, rash. Pt denies weakness, night sweats, weight loss. Neuro: Pt denies visual disturbances, syncope or pre-syncope. HEENT: Pt denies ocular discharge or irritation, otalgia, rhinorrhea, pharyngitis or notable lymphadenopathy. Cardiopulmonary: Pt denies chest pain, SOB, heart palpitations, dyspnea on exertion. Abdominal/GI: Pt denies abdominal pain, n/v/d. : Pt denies dysuria, burning w/ urination, frequency/urgency. Denies new onset urinary or bowel incontinence. MSK: Pt denies myalgia, loss of strength or function in extremities. Neuro: Pt denies new onset weakness, paresthesias. - Related Data Home Medications Medication Instructions Recorded Confirmed Pregabalin [Lyrica] 300 mg PO BID 05/30/16 03/19/19 Morphine Sulfate [Ms Contin] 30 mg PO Q12HR 05/08/17 03/19/19 HYDROcodone/APAP 7.5-325MG [[place] 1 tab PO BID PRN 09/15/18 03/19/19 7.5-325] DULoxetine HCL [Cymbalta] 60 mg PO DAILY 11/10/18 03/19/19 rOPINIRole HCL [Requip] 0.25 mg PO DAILY PRN 11/10/18 03/19/19 Allergies Allergy/AdvReac Type Severity Reaction Status Date / Time No Known Allergies Allergy Verified 04/22/19 18:51 Review of Systems ROS Statement: Those systems with pertinent positive or pertinent negative responses have been documented in the HPI. ROS Other: All systems not noted in ROS Statement are negative. Past Medical History Past Medical History: Osteoarthritis (OA) Additional Past Medical History / Comment(s): valerio neuropathy-post back surgery,CHRONIC BACK PAIN,fatty liver History of Any Multi-Drug Resistant Organisms: None Reported Past Surgical History: Adenoidectomy, Back Surgery Additional Past Surgical History / Comment(s): BACK SURGERY X 5. UP3. 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 HEENT: NC/AT, trachea midline, neck supple, no lymphadenopathy. Posterior phary nx non erythematous, without exudates. External ears appear normal, without discharge. Mucous membranes moist. Eyes PERRLA, EOM intact. There is no scleral icterus. No pallor noted. Cardiopulmonary: RRR, no murmurs, rubs or gallops, no JVD noted. Lungs CTAB in anterior and posterior jasmine. No peripheral edema. Abdominal exam: Abdomen soft and non-distended. Abdomen non-tender to palpation in all 4 quadrants. Bowel sounds active in LLQ. No hepatosplenomegaly. No ecchymosis Neuro: CN II-XII intact. No nuchal rigidity. No raccon eyes, no rasheed sign, no hemotympanum. No cervical spinal tenderness. NIH 0. MSK: No posterior calf tenderness bilaterally, homans sign negative bilaterally. Posterior tibialis and radial pulse +2 bilaterally. Sensation intact in upper and lower extremities. Full active ROM in upper and lower extremities, 5/5 stregnth. Limitations: no limitations Course Vital Signs 02/04/22/19 04/22/19 18:46 20:29 23:00 Temperature 101.3 F H 100.3 F H 98.4 F Pulse Rate 103 H 86 89 Respiratory 18 18 18 Rate Blood Pressure 135/80 127/60 134/80 O2 Sat by Pulse 96 98 96 Oximetry Medical Decision Making - Medical Decision Making 53-year-old female patient with past history of migraine headaches once ED for chief complaint of migraine headaches. Patient also reports that she has been fighting a cold for approximately 2 weeks. States that she has a nonproductive cough. Reports that this morning the migraine headache started on the right hemisphere of her head. Reports that does feel similar to migraine headaches of the past. Reports a slow and insidious onset, denies thunderclap. Post that she is having some photophobia. States that she has had nausea without emesis. Reports that she did feel warm however denies taking her temperature with a thermometer. Denies abdominal pain or chest pain. Denies any chance of being . Patient vital signs the displayed fever, patient was administered antipyretic. Physical exam is fully intact neurologic exam. No other acute pathology. Laboratory investigations revealed leukocytosis of 13.9 with a left shift. Mildly elevated liver enzymes. Chest x-ray, brain CT are negative. Urine was contaminated, nitrite negative, moderate leukocyte Estrace, 13 white cells, 13 squamous epithelial cells. Patient declines a dysuria. Influenza is negative. Patient continues to remain asymptomatic. Patient was discharged for follow-up with primary care provider tomorrow and return to ER if condition worsens. Case discussed with Dr. Cloud. - Lab Data Result diagrams: 04/22/19 19:30 04/22/19 19:30 Lab Results 04/22/19 04/22/19 04/22/19 Range/Units 18:49 19:30 19:30 WBC 13.9 H (3.8-10.6) k/uL RBC 4.63 (3.80-5.40) m/uL Hgb 14.1 (11.4-16.0) gm/dL Hct 41.1 (34.0-46.0) % MCV 88.8 (80.0-100.0) fL MCH 30.4 (25.0-35.0) pg MCHC 34.2 (31.0-37.0) g/dL RDW 13.7 (11.5-15.5) % Plt Count 325 (150-450) k/uL Neutrophils % 87 % Lymphocytes % 7 % Monocytes % 3 % Eosinophils % 1 % Basophils % 0 % Neutrophils # 12.1 H (1.3-7.7) k/uL Lymphocytes # 0.9 L (1.0-4.8) k/uL Monocytes # 0.4 (0-1.0) k/uL Eosinophils # 0.1 (0-0.7) k/uL Basophils # 0.1 (0-0.2) k/uL Sodium 137 (137-145) mmol/L Potassium 4.4 (3.5-5.1) mmol/L Chloride 101 (98-107) mmol/L Carbon Dioxide 25 (22-30) mmol/L Anion Gap 11 mmol/L BUN 12 (7-17) mg/dL Creatinine 0.77 (0.52-1.04) mg/dL Est GFR (CKD-EPI)AfAm >90 (>60 ml/min/1.73 sqM) Est GFR (CKD-EPI)NonAf 88 (>60 ml/min/1.73 sqM) Glucose 119 H (74-99) mg/dL Calcium 9.9 (8.4-10.2) mg/dL Total Bilirubin 1.2 (0.2-1.3) mg/dL AST 174 H (14-36) U/L ALT 141 H (4-34) U/L Alkaline Phosphatase 114 (38-126) U/L Total Protein 9.0 H (6.3-8.2) g/dL Albumin 4.9 (3.5-5.0) g/dL Urine Color Urine Appearance (Clear) Urine pH (5.0-8.0) Ur Specific [place] (1.001-1.035) Urine Protein (Negative) Urine Glucose (UA) (Negative) Urine Ketones (Negative) Urine Blood (Negative) Urine Nitrite (Negative) Urine Bilirubin (Negative) Urine Urobilinogen (<2.0) mg/dL Ur Leukocyte Esterase (Negative) Urine RBC (0-5) /hpf Urine WBC (0-5) /hpf Ur Squamous Epith Cells (0-4) /hpf Urine Bacteria (None) /hpf Hyaline Casts (0-2) /lpf Urine Mucus (None) /hpf Influenza Type A RNA Not Detected (Not Detectd) Influenza Type B (PCR) Not Detected (Not Detectd) 04/22/19 Range/Units 22:54 WBC (3.8-10.6) k/uL RBC (3.80-5.40) m/uL Hgb (11.4-16.0) gm/dL Hct (34.0-46.0) % MCV (80.0-100.0) fL MCH (25.0-35.0) pg MCHC (31.0-37.0) g/dL RDW (11.5-15.5) % Plt Count (150-450) k/uL Neutrophils % % Lymphocytes % % Monocytes % % Eosinophils % % Basophils % % Neutrophils # (1.3-7.7) k/uL Lymphocytes # (1.0-4.8) k/uL Monocytes # (0-1.0) k/uL Eosinophils # (0-0.7) k/uL Basophils # (0-0.2) k/uL Sodium (137-145) mmol/L Potassium (3.5-5.1) mmol/L Chloride (98-107) mmol/L Carbon Dioxide (22-30) mmol/L Anion Gap mmol/L BUN (7-17) mg/dL Creatinine (0.52-1.04) mg/dL Est GFR (CKD-EPI)AfAm (>60 ml/min/1.73 sqM) Est GFR (CKD-EPI)NonAf (>60 ml/min/1.73 sqM) Glucose (74-99) mg/dL Calcium (8.4-10.2) mg/dL Total Bilirubin (0.2-1.3) mg/dL AST (14-36) U/L ALT (4-34) U/L Alkaline Phosphatase (38-126) U/L Total Protein (6.3-8.2) g/dL Albumin (3.5-5.0) g/dL Urine Color Yellow Urine Appearance Cloudy H (Clear) Urine pH 5.5 (5.0-8.0) Ur Specific [place] 1.023 (1.001-1.035) Urine Protein 1+ H (Negative) Urine Glucose (UA) Negative (Negative) Urine Ketones Negative (Negative) Urine Blood Trace H (Negative) Urine Nitrite Negative (Negative) Urine Bilirubin Negative (Negative) Urine Urobilinogen 2.0 (<2.0) mg/dL Ur Leukocyte Esterase Moderate H (Negative) Urine RBC 2 (0-5) /hpf Urine WBC 13 H (0-5) /hpf Ur Squamous Epith Cells 13 H (0-4) /hpf Urine Bacteria Rare H (None) /hpf Hyaline Casts 36 H (0-2) /lpf Urine Mucus Occasional H (None) /hpf Influenza Type A RNA (Not Detectd) Influenza Type B (PCR) (Not Detectd) Disposition Clinical Impression: Fever, Migraine headache Disposition: HOME SELF-CARE Condition: Stable Instructions (If sedation given, give patient instructions): Acute Headache (ED) Additional Instructions: Follow-up with primary care provider tomorrow. Have liver enzymes rechecked by PCP. Return immediately to ER if condition worsens. Is patient prescribed a controlled substance at d/c from ED?: No Referrals: Hiro Díaz DO [Primary Care Provider] - 1-2 days
[2019-04-22 19:52] LABS: ALT 141 U/L (4-34); AST 174 U/L (14-36); African American GFR (CKD) >90 (>60 ml/min/1.73 sqM); Albumin 4.9 g/dL (3.5-5.0); Alkaline Phosphatase 114 U/L (38-126); Anion Gap 11 mmol/L; Blood Urea Nitrogen 12 mg/dL (7-17); Calcium 9.9 mg/dL (8.4-10.2); Carbon Dioxide 25 mmol/L (22-30); Chloride 101 mmol/L (98-107); Glucose 119 mg/dL (74-99); Non-African American GFR(CKD) 88 (>60 ml/min/1.73 sqM); Potassium 4.4 mmol/L (3.5-5.1); Sodium 137 mmol/L (137-145); Total Bilirubin 1.2 mg/dL (0.2-1.3)
--- NOTE | 2019-04-22 20:39 | CT ---
EXAMINATION: CT brain wo con DATE AND TIME: 04/22/2019 8:08 PM CLINICAL INDICATION: PHH; Headache, acute, normal neuro exam TECHNIQUE: Standard departmental protocol.; 1095.4 COMPARISON: 03/27/2012 FINDINGS: The calvarium is intact. There is no intracranial hemorrhage. There is no intracranial mass or mass effect. No definite new intra-axial or extra-axial attenuation defect. The paranasal sinuses, middle ear cavities, and mastoid sinus air cells are clear. The orbits are unremarkable. IMPRESSION: NO ACUTE PROCESS.
--- NOTE | 2019-04-22 21:01 | XR ---
EXAMINATION: XR chest 2V DATE AND TIME: 04/22/2019 8:10 PM CLINICAL INDICATION: PHH; cough TECHNIQUE: Departmental protocol COMPARISON: 04/16/2012 FINDINGS: The lungs are clear. The pleural spaces are negative. The cardiac silhouette is not enlarged. The remainder of the mediastinal silhouette is unremarkable. The skeletal structures and soft tissues are negative for acute findings. IMPRESSION: NO ACUTE PROCESS.
[2019-04-22] MEDS ORDERED: KETOROLAC 30 MG/ML 1 ML VIAL IVP STA (21:48)
[2019-04-22 23:01] VITALS: BP 134/80; PULSE 89; TEMP 98.4
[2019-04-22 23:11] LABS: Appearance,Urine Cloudy (Clear); Bacteria,Urine Rare /hpf; Bilirubin,Urine Negative (Negative); Blood,Urine Trace (Negative); Color,Urine Yellow; Glucose,Urine (UA) Negative (Negative); Hyaline Casts,Urine 36 /lpf (0-2); Ketones,Urine Negative (Negative); Leukocyte Esterase,Urine Moderate (Negative); Mucus,Urine Occasional /hpf; Nitrite,Urine Negative (Negative); PH, Urine 5.5 (5.0-8.0); Protein,Urine 1+ (Negative); RBC,Urine 2 /hpf (0-5); Specific Gravity,Urine 1.023 (1.001-1.035); Squamous Epithelial Cell,Urine 13 /hpf (0-4); WBC,Urine 13 /hpf (0-5)
== END 2019-04-22 23:41 | disposition home or self-care (01) ==
LOC: EC 18:20
DX: G40.909 Epilepsy, unspecified, not intractable, without status epilepticus (principal); R50.9 Fever, unspecified; D72.829 Elevated white blood cell count, unspecified; R74.8 Abnormal levels of other serum enzymes; R05 Cough; M19.90 Unspecified osteoarthritis, unspecified site; G62.9 Polyneuropathy, unspecified; F32.9 Major depressive disorder, single episode, unspecified; Z79.891 Long term (current) use of opiate analgesic; Z79.899 Other long term (current) drug therapy; Z53.29 Procedure and treatment not carried out because of patient's decision for other reasons
CPT/HCPCS: 36415; 80053; 85025; 81001; 87086; 87502; 71046; 70450; 99284; 96374; 96375 ×2; J2270; J1200; J2765

== ENCOUNTER 2019-05-12 06:27 | Day surgery (SDC) | payer MEDICARE ==
[2019-05-11 10:52] VITALS: BMI 36.5
[~2019-05-12 06:27] MED LIST changes: -LIDOCAINE 1% 20 ML VIAL (10MG/ML) FOR IV START INTRADERMA PRN; -LIDOCAINE 1% INJ 10MG/ML (20 ML MDV) ONE; -PROPOFOL 10 MG/ML 20 ML VIAL IV ONE
[2019-05-12 06:47] VITALS: TEMP 97
--- NOTE | 2019-05-12 06:53 | P.GSHP ---
History of Present Illness H&P Date: 05/12/19 This is 53 years old female with a chronic history of severe low back pain, Diagnosed with bilateral sacroiliitis, lumbar spondylosis with lumbar facet arthropathy, and failed back surgery syndrome and lumbar area, she is here today to have RFA of the left side L5-S1 dorsal ramus, and RFA of the left-sided lateral branches of S1/S2/S3, she already had the right side done in March 2019 Past Medical History Past Medical History: Osteoarthritis (OA) Additional Past Medical History / Comment(s): valerio neuropathy-post back surgery,CHRONIC BACK PAIN,fatty liver History of Any Multi-Drug Resistant Organisms: None Reported Past Surgical History: Adenoidectomy, Back Surgery, Orthopedic Surgery Additional Past Surgical History / Comment(s): BACK SURGERY X 5. UP3. [facility]. 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 Smoking Status: Never smoker - Past Family History Father Family Medical History: Cancer Additional Family Medical History / Comment(s): skin Mother Family Medical History: Cancer Additional Family Medical History / Comment(s): skin Medications and Allergies Home Medications Medication Instructions Recorded Confirmed Type Pregabalin [Lyrica] 300 mg PO BID 05/30/16 05/11/19 History Morphine Sulfate [Ms Contin] 30 mg PO Q12HR 05/08/17 05/11/19 History HYDROcodone/APAP 7.5-325MG [[place] 1 tab PO BID PRN 09/15/18 05/12/19 History 7.5-325] DULoxetine HCL [Cymbalta] 60 mg PO DAILY 11/10/18 05/11/19 History rOPINIRole HCL [Requip] 0.25 mg PO DAILY PRN 11/10/18 05/11/19 History Allergies Allergy/AdvReac Type Severity Reaction Status Date / Time No Known Allergies Allergy Verified 05/12/19 06:38 Surgical - Exam Vital Signs Temp Pulse Resp BP Pulse Ox 97.0 F L 77 17 156/90 97 05/12/19 06:46 05/12/19 06:46 05/12/19 06:46 05/12/19 06:46 05/12/19 06:46 -Constitutiona : Cooperative , not in acute distress . -HEENT : nech : supple , no Lymphadenopathy , normal thyroid size . : eyes : no ptosis , no icterus, no photophobia . - neurologic : Cranial nerve II to XII intact , no focal neurological deffecit . -psychatric : alert , oriented X 3 , appropriate affect , intact judgment and insight . -Lymphatic : no Lymphadenopathy . - musculoskeltal : Lumber spine moter stegnth lower extremities ,thigh and legs 5/5 Right side , 5/5 Left side deep tendon reflexes : normal Knee Jerk , normal ankle Jerk lumber facet Loading Test =positive Right , positive Left Range of motion of the lumbar spine Flexion 30 degrees, extension 10 degrees strait leg raising test = positive at 45 degree Fabere test= positive Right , and positive LT . Sever tenderness over the Sacroiliac joint on the Right , and Left sides Gaenslen test= positive right ,and positive left . Seated flexion test= positive right ,and positive Left . Assessment and Plan Plan: assessment and plan= 1-bilateral sacroiliitis. 2-lumbar spondylosis with lumbar facet arthropathy. 3-postlaminectomy pain syndrome lumbar area. Patient will be good candidate to have radiofrequency thermocoagulation of the sacroiliac joint (RFA L5-S1 dorsal ramus,lateral Branches of S1 , S2 , S3 ) on the left side Time with Patient: Less than 30
[2019-05-12] MEDS ORDERED: ROPIVACAINE 5MG/ML 20ML VIAL ONE (07:00)
[2019-05-12] MEDS ORDERED: fentaNYL (PF) 50 MCG/ML 2 ML AMP ONE (07:00)
[2019-05-12] MEDS ORDERED: methylPREDNISolone ACETATE 40 MG/ML 1 ML VIAL ONE (07:00)
[2019-05-12] MEDS ORDERED: MIDAZOLAM 2 MG/2 ML VIAL ONE (07:00)
[2019-05-12] MEDS ORDERED: LACTATED RINGERS 1,000 ML IV ONE ×2 (07:42)
[2019-05-12 07:45] VITALS: RESP 18
[2019-05-12 07:59] VITALS: BP 150/88; PULSE 74
[2019-05-12] MEDS ORDERED: IV FLUID CONTINUATION 1,000 ML IV ONE (07:59)
--- NOTE | 2019-05-12 11:08 | P.PCN ---
Date of Procedure: 05/12/19 Procedure(s) Performed: PREOPERATIVE DIAGNOSIS: 1-Lumbosacral spondylosis with facet arthropathy without myelopathy. 2- sacroiliit. 3-failed back surgery syndrome lumbar area post operative Diagnosis: . 1-Lumbosacral spondylosis with facet arthropathy without myelopathy. 2- sacroiliit. 3-failed back surgery syndrome lumbar area PROCEDURES: 1- Left radiofrequency thermocoagulation/ablation of the L5 dorsal ramus. 2- Left multi-site radiofrequency thermocoagulation/ablation of the S1, S2, and S3 lateral branchs. The procedure was performed using fluoroscopic guidance during needle placement to assure proper position (fluoroscopy images available in radiology department) ANESTHESIA = moderate sedation with intravenous versed 2 mg and Fentanyle 100 mcg EBL: NONE INDICATION/MEDICAL NECESSITY: History of low back pain secondary to sacroiliitis and lumbosacral arthropathy unresponsive to more conservative treatments. The patient reported more than 50% relief of pain symptoms following 2 previous diagnostic blocks with Bupivacaine. PROCEDURE DESCRIPTION: The patient was seen and identified in the preoperative area. Risks, benefits, complications, and alternatives were discussed with the patient. The patient agreed to proceed with the procedure and signed the consent. Vital signs were checked before and after the procedure and they remained stable. Patient ambulated to the procedure room and time out was completed. The patient was placed in the prone position on the procedure table and a pillow was placed under the abdomen to reduce lumbar lordosis. The lumbosacral area was prepped and draped in the usual sterile fashion. Critical pause was taken. L5 Dorsal Ramus RF: Using right oblique fluoroscopy, the junction of the transverse process and the superior articular process of the left S1 vertebra, which correspond to the fluoroscopic image of the "eye of the Ruddy dog" was identified. Subsequently, a 10-cm 20 -gauge radiofrequency cannula with a 10-mm active tip was advanced under fluoroscopic guidance until contact was made with periosteum. At this level, the Sensory testing of the L5 dorsal ramus was performed at 50 Hz and 0 to 1 volt with production of concordant pain starting at 0.5 volt. Motor stimulation was done at 2.5 Hz with stimulation of mulitifidus muscle contration . No radicular symptoms or paresthesias were produced during the testing. Subsequently, the L5 dorsal ramus was subjected to a radiofrequency ablation at 80 degree celsius for 90 seconds . after 0.5% Bupivacaine 1 ml injected at each level after negative aspirations . S1, S3, and S3 Lateral Branch RF: The left S1, S2, and S3 foramina were not identified using AP fluoroscopy. Under fluoroscopic guidance, three 10-cm 20 -gauge radiofrequency cannula with a 10-mm active tip were inserted at 3-5 mm medial to the medial border of the left sacroiliac joint then starting from the inferior border of the left sacroiliac joint and total of 6 needles placed along the medial aspect of the left sacroiliac joint after needle placement confirmed with AP and lateral view. At this level, the sensory testing of the S1,S2 ,S3 lateral branch was performed at 50 Hz and 0 to 1 volt at the three levels with production of concordant pain starting at 0.5 volt. Motor stimulation was done at 2.5 Hz. No radicular symptoms or paresthesias were produced during the testing. Subsequently, the S1 ,S2 ,S3 lateral branch was subjected to a radiofrequency ablation at a mode of 90 seconds at 80 degrees Celsius at the 3 levels after negative motor and sensory testing and after injecting 0.5 ml of preservative free ropivacaine 0.5 %. Then before the needles taken mixture of ropivacaine 0.5% 6 and 40 mg of Depo-Medrol mixed with her and 1 mL injected at each level and before the needles taken out The needle was withdrawn intact after each injection. COMPLICATIONS: The patient tolerated the procedure well without any acute complications. DISPOSTION/PLAN: The patient ambulated to the recovery area after the procedure in a stable condition for observation. Patient was reexamined prior to discharge. Patient was observed for 30 minutes in the recovery area and was discharged home, accompanied by an adult, after meeting discharged criteria. Discharge instructions were give to the patient by the staff. Patient was specifically instructed not to drive today and to rest for the rest of the day. The patient will schedule a follow up visit in the clinic in weeks or earlier if needed.
--- NOTE | 2019-05-12 11:51 | FL ---
Fluoroscopy HISTORY: Pain 28 seconds fluoroscopy time supplied to the referring clinician. 6 intraoperative C-arm images docum ent the procedure. See dictated report from anesthesia.
== END 2019-05-12 08:08 | disposition home or self-care (01) ==
LOC: ORPAIN 06:27
PROVIDERS: ATTEND Specialist
DX: G89.29 Other chronic pain (principal); M47.817 Spondylosis without myelopathy or radiculopathy, lumbosacral region; M46.1 Sacroiliitis, not elsewhere classified; M96.1 Postlaminectomy syndrome, not elsewhere classified; Z78.0 Asymptomatic menopausal state; G62.9 Polyneuropathy, unspecified; K76.0 Fatty (change of) liver, not elsewhere classified; Z90.89 Acquired absence of other organs; Z98.890 Other specified postprocedural states; Z86.69 Personal history of other diseases of the nervous system and sense organs; Z87.898 Personal history of other specified conditions; Z91.89 Other specified personal risk factors, not elsewhere classified; Z80.8 Family history of malignant neoplasm of other organs or systems; Z79.899 Other long term (current) drug therapy; Z79.891 Long term (current) use of opiate analgesic
CPT/HCPCS: 64625; J2250; J1030; J3010; J2795; 64640; 99152; 99153

== ENCOUNTER → 2019-08-02 | Outpatient (CLI) | payer MEDICARE ==
[2019-08-02 13:21] VITALS: BMI 36.6
== END | disposition home or self-care (01) ==
LOC: BARWHC3 08:43
PROVIDERS: ATTEND Surgery
DX: E66.01 Morbid (severe) obesity due to excess calories (principal)
CPT/HCPCS: 97804

== ENCOUNTER → 2019-08-09 | Outpatient (CLI) | payer MEDICARE ==
[2019-08-09 13:59] VITALS: BP 156/91; PULSE 84; RESP 16; TEMP 98.5; BMI 36.5
--- NOTE | 2019-08-09 15:54 | P.HPBAR ---
Bariatric H&P - History & Physicial H&P Date: 08/09/19 History & Physicial: Visit/CC: Pre-Surg Patient initial contact: Initial weight: 107.104 kg Initial weight in pounds: 236.12 Height: 5 ft 8 in Initial BMI: 35.9 Last weight: Current weight: 108.947 kg Current weight in pounds: 240.19 Current BMI: 36.5 [place] body weight (based on NIH guidelines): 63.503 kg Excess body weight loss: The patient is a 53 year-old F who presents for Bariatric Assessment. Patient presents today for presurgical consultation. Patient's had lifetime problems obesity. She has an excellent understanding of sleeve gastrectomy. He went over the risks and benefits of procedure she is aware the risks of gastric staple line disruption, bleeding or scarring. Her BMI is 37 Past Medical History Past Medical History: Osteoarthritis (OA) Additional Past Medical History / Comment(s): valerio neuropathy-post back surgery,CHRONIC BACK PAIN,fatty liver History of Any Multi-Drug Resistant Organisms: None Reported Past Surgical History: Adenoidectomy, Back Surgery, Orthopedic Surgery Additional Past Surgical History / Comment(s): BACK SURGERY X 5. UP3. [facility]. 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 Past Psychological History: Depression Smoking Status: Never smoker Past Alcohol Use History: None Reported Past Drug Use History: None Reported - Past Family History Father Family Medical History: Cancer Additional Family Medical History / Comment(s): skin Mother Family Medical History: Cancer Additional Family Medical History / Comment(s): skin Surgical - Exam Vital Signs Temp Pulse Resp BP 98.5 F 84 16 156/91 08/09/19 13:51 08/09/19 13:51 08/09/19 13:51 08/09/19 13:51 - General well developed, well nourished, no distress - Eyes PERRL - ENT normal pinna - Neck no masses - Respiratory normal expansion - Cardiovascular Rhythm: regular - Abdomen Abdomen: soft, non tender Bariatric Assessment & Plan Plan: RBC count BMI 37. Patient will be scheduled for sleeve gastrectomy once her insurance authorization criteria have been met. Bariatric Checklist Checklist: Plan: Checklist: EGD: 1. Hiatal hernia: 2. H. Pylori: HgbA1c: Vitamin D: Smoking: Never smoker Primary care physician referral: crissy Psychiatry clearance: Cardiology clearance: Sleep study: Diet journal: VTE risk score: VTE risk level: Rehab needs at discharge:
== END | disposition home or self-care (01) ==
LOC: BARWHC3 13:33
PROVIDERS: ATTEND Surgery
DX: Z48.815 Encounter for surgical aftercare following surgery on the digestive system (principal); E66.9 Obesity, unspecified; Z68.37 Body mass index [BMI] 37.0-37.9, adult
CPT/HCPCS: 99211

== ENCOUNTER → 2019-08-20 | Outpatient (CLI) | payer MEDICARE ==
[2019-08-20 11:37] LABS: Albumin 4.9 g/dL (3.5-5.0); Calcium 10.2 mg/dL (8.4-10.2); Potassium 5.4 mmol/L (3.5-5.1); Total Bilirubin 0.9 mg/dL (0.2-1.3); Total Protein 9.5 g/dL (6.3-8.2)
[2019-08-20 12:02] LABS: Basophils # (A) 0.1 k/uL (0-0.2); Basophils % (A) 1 %; Eosinophils # (A) 0.3 k/uL (0-0.7); Eosinophils % (A) 6 %; HCT 50.2 % (34.0-46.0); HGB 15.8 gm/dL (11.4-16.0); Lymphocytes # (A) 1.6 k/uL (1.0-4.8); Lymphocytes % (A) 26 %; MCH 28.9 pg (25.0-35.0); MCHC 31.5 g/dL (31.0-37.0); MCV 91.7 fL (80.0-100.0); Mean Platelet Volume 7.8; Monocytes # (A) 0.4 k/uL (0-1.0); Monocytes % (A) 6 %; Neutrophils # (A) 3.5 k/uL (1.3-7.7); Neutrophils % (A) 59 %; Platelet Count 311 k/uL (150-450); RBC 5.47 m/uL (3.80-5.40); RDW 14.2 % (11.5-15.5); WBC 5.9 k/uL (3.8-10.6)
== END | disposition home or self-care (01) ==
LOC: LABPAT 10:17
PROVIDERS: ATTEND Surgery
DX: Z01.818 Encounter for other preprocedural examination (principal)
CPT/HCPCS: 80053; 85025

== ENCOUNTER 2019-08-25 09:10 | Inpatient (IN) | payer MEDICARE ==
[~2019-08-25 09:10] MED LIST changes: +DEXAMETHASONE SOD PHOSPHATE 10 MG/ML 1 ML VIAL IV ONE; +ENOXAPARIN 40 MG/0.4 ML SYRINGE SQ ONE; +HYDROmorphone 0.5 MG/0.5 ML SYRINGE IVP PRN; +MIDAZOLAM 2 MG/2 ML VIAL IV PRN; +ONDANSETRON 4 MG/2 ML VIAL IVP ONE; +SCOPOLAMINE 1.5MG/72HR PATCH TRANSDERM ONE
--- NOTE | 2019-08-25 11:24 | P.GSHP ---
History of Present Illness H&P Date: 08/25/19 Chief Complaint: Morbid obesity, BMI 37 This a 54-year-old female who presents today for laparoscopic sleeve yesterday. Patient is moderately obese. BMI 37. She has had lifetime problems obesity. Patient understands the risks and benefits of sleeve gastrectomy. She is aware the risk of gastric staple line perforation bleeding and scarring. Past Medical History Past Medical History: Osteoarthritis (OA) Additional Past Medical History / Comment(s): valerio neuropathy-post back surgery,CHRONIC BACK PAIN,fatty liver History of Any Multi-Drug Resistant Organisms: None Reported Past Surgical History: Adenoidectomy, Back Surgery, Orthopedic Surgery Additional Past Surgical History / Comment(s): BACK SURGERY X 5. UP3. [facility]. 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 Smoking Status: Never smoker - Past Family History Father Family Medical History: Cancer Additional Family Medical History / Comment(s): skin Mother Family Medical History: Cancer Additional Family Medical History / Comment(s): skin Medications and Allergies Home Medications Medication Instructions Recorded Confirmed Type Pregabalin [Lyrica] 300 mg PO BID 05/30/16 08/23/19 History Morphine Sulfate [Ms Contin] 30 mg PO Q12HR 05/08/17 08/23/19 History HYDROcodone/APAP 7.5-325MG [[place] 1 tab PO BID PRN 09/15/18 08/23/19 History 7.5-325] DULoxetine HCL [Cymbalta] 60 mg PO DAILY 11/10/18 08/23/19 History rOPINIRole HCL [Requip] 0.25 mg PO DAILY PRN 11/10/18 08/23/19 History QUEtiapine [SEROquel] 50 mg PO HS 08/16/19 08/23/19 History Allergies Allergy/AdvReac Type Severity Reaction Status Date / Time No Known Allergies Allergy Verified 08/23/19 08:34 Surgical - Exam BMI 37 - General well developed, well nourished, no distress - Eyes PERRL - ENT normal pinna - Neck no masses - Respiratory normal expansion - Cardiovascular Rhythm: regular - Abdomen Abdomen: soft, non tender Assessment and Plan Assessment: Morbid obesity. We'll perform laparoscopic sleeve gastrectomy.
[2019-08-25] MEDS ORDERED: ONDANSETRON 4 MG/2 ML VIAL ONE (11:41)
[2019-08-25] MEDS ORDERED: LACTATED RINGERS 1,000 ML IV ONE ×2 (11:42→14:09)
[2019-08-25] MEDS ORDERED: KETAMINE 10 MG/ML 20 ML VIAL ONE (13:13)
[2019-08-25] MEDS ORDERED: ROCURONIUM BROMIDE 10 MG/ML 5 ML VIAL IV ONE (13:13)
[2019-08-25] MEDS ORDERED: ACETAMINOPHEN IV (For NPO) 1,000 MG/100 ML VIAL ONE (13:13)
[2019-08-25] MEDS ORDERED: SUCCINYLCHOLINE CHLORIDE 100 MG/5 ML SYR IV ONE (13:13)
[2019-08-25] MEDS ORDERED: PHENYLEPHRINE-0.9% NACL SYG 1 MG/10 ML SYRINGE ONE (13:13)
[2019-08-25] MEDS ORDERED: GLYCOPYRROLATE 0.2 MG/ML 2 ML VIAL ONE (13:13)
[2019-08-25] MEDS ORDERED: MIDAZOLAM 2 MG/2 ML VIAL ONE (13:13)
[2019-08-25] MEDS ORDERED: LIDOCAINE 1% INJ 10MG/ML (20 ML MDV) ONE (13:13)
[2019-08-25] MEDS ORDERED: NEOSTIGMINE 1 MG/ML 10 ML VIAL ONE (13:13)
[2019-08-25] MEDS ORDERED: PROPOFOL 10 MG/ML 20 ML VIAL IV ONE (13:13)
[2019-08-25] MEDS ORDERED: KETOROLAC 30 MG/ML 1 ML VIAL ONE (13:13)
[2019-08-25] MEDS ORDERED: BUPIVACAIN-EPI 0.25%-1:200,000 30 ML VIAL SQ ONE (13:46)
[2019-08-25] MEDS ORDERED: diphenhydrAMINE 50 MG/ML 1 ML VIAL IVP PRN (14:27)
[2019-08-25] MEDS ORDERED: ONDANSETRON 4 MG/2 ML VIAL IVP PRN (14:27)
[2019-08-25] MEDS ORDERED: SIMETHICONE 40 MG/0.6 ML DROPS 2,000 MG/30 ML BOTTLE PO PRN (14:27)
[2019-08-25] MEDS ORDERED: HYOSCYAMINE ORAL DROPS 1.875 MG/15 ML BOTTLE PO PRN (14:27)
[2019-08-25] MEDS ORDERED: NALOXONE 0.4 MG/ML 1 ML VIAL IV PRN (14:27)
--- NOTE | 2019-08-25 14:27 | P.OP ---
Date of Procedure: 08/25/19 Preoperative Diagnosis: Morbid obesity, BMI 35 Postoperative Diagnosis: Morbid obesity, BMI 35 Procedure(s) Performed: Laparoscopic sleeve gastrectomy Anesthesia: JUAN F Surgeon: Jered Bernal Estimated Blood Loss (ml): 5 Pathology: other (Stomach) Condition: stable Disposition: PACU Description of Procedure: Tawanda patient was placed on the operating room table in the supine position. She received general anesthesia and then was placed in dorsal lithotomy po sition. Her abdomen was prepped and draped in sterile fashion. The skin incision sites were anesthetized 1% local Xylocaine. And then the skin was incised with an 11 blade in the left lateral position. Using a blade less trocar under direct visualization the peritoneal cavity was entered. The abdomen was insufflated and then a 5 mm laparoscope was placed into the peritoneal cavity. A 5 mm trocar was placed in the right epigastric, and right lateral position. A 15 mm trocar was placed in the supra-umbilical position and another 5 mm trocar was placed in the left lateral position. The left lateral lobe of the liver was retracted. The stomach was visualized. The greater curvature of the stomach was then dissected using the Harmonic scissors. The dissection occurred approximately 5 cm from the pylorus to the level of the left dominick. There was no hiatal hernia seen. At this point a 40-Lao bougie dilator was placed the oropharynx and passed into the esophagus and into the stomach by the TRADE ANALYST. The sleeve gastrectomy was performed by using the powered echelon stapler with a seam guard buttress material. Sequential firings of the stapler were performed. The gastric remnant was then brought out through the 15 mm trocar site. The dilator was withdrawn. And a orogastric tube was replaced into the stomach. The stomach was insufflated with 200 mL of methylene blue normal saline. There was no evidence of extravasation. The abdomen was irrigated there is no bleeding seen. The Sean-Drea device was used to close the 15 mm trocar with 0 Vicryl. Skin was closed with interrupted 3-0 Monocryl sutures once the trochars withdrawn. Dermabond dressing was applied. Patient was sent to recovery in stable condition.
[2019-08-25] MEDS ORDERED: ACETAMINOPHEN IV (For NPO) 1,000 MG/100 ML VIAL IVPB ONE (15:25)
[2019-08-25] MEDS: KETOROLAC 30 MG/ML 1 ML VIAL IVP SCH ×2 (17:31→22:25)
[2019-08-25] MEDS: 0.9% NACL WITH KCL 20 MEQ/L 1,000 ML IV SCH ×2 (17:31→22:26)
[2019-08-25] MEDS: ALBUTEROL NEBULIZED 2.5 MG/3 ML INHALATION SCH ×2 (18:34→19:14)
[2019-08-25] MEDS: HYDROmorphone 1 MG/ML 1 ML SYRINGE IVP PRN ×2 (19:32→23:52)
[2019-08-25] MEDS: ENOXAPARIN 40 MG/0.4 ML SYRINGE SQ SCH (22:26)
[2019-08-26 01:04] LABS: ALT 198 U/L (4-34); AST 405 U/L (14-36); African American GFR (CKD) >90 (>60 ml/min/1.73 sqM); Albumin 4.6 g/dL (3.5-5.0); Alkaline Phosphatase 158 U/L (38-126); Anion Gap 11 mmol/L; Blood Urea Nitrogen 21 mg/dL (7-17); Calcium 9.1 mg/dL (8.4-10.2); Carbon Dioxide 22 mmol/L (22-30); Chloride 104 mmol/L (98-107); Glucose 112 mg/dL (74-99); Non-African American GFR(CKD) >90 (>60 ml/min/1.73 sqM); Potassium 4.7 mmol/L (3.5-5.1); Sodium 137 mmol/L (137-145); Total Bilirubin 0.6 mg/dL (0.2-1.3); Total Protein 8.5 g/dL (6.3-8.2)
[2019-08-26] MEDS: HYDROmorphone 1 MG/ML 1 ML SYRINGE IVP PRN ×2 (03:53→07:49)
[2019-08-26] MEDS: 0.9% NACL WITH KCL 20 MEQ/L 1,000 ML IV SCH ×2 (06:08→12:24)
[2019-08-26] MEDS: KETOROLAC 30 MG/ML 1 ML VIAL IVP SCH ×2 (06:08→12:23)
[2019-08-26] MEDS: ALBUTEROL NEBULIZED 2.5 MG/3 ML INHALATION SCH ×3 (08:14→16:25)
[2019-08-26 08:38] VITALS: RESP 18
[2019-08-26] MEDS ORDERED: PANTOPRAZOLE 40 MG/10 ML VIAL IV SCH (09:00)
--- NOTE | 2019-08-26 09:20 | FL ---
EXAMINATION TYPE: FL UGI DATE OF EXAM: 08/26/2019 LIMITED UGI: CLINICAL HISTORY: Morbid Obesity, gastric sleeve surgery yesterday. TECHNIQUE: Limited esophagram is performed utilizing 50 oz of Isovue-370. A total of 28 seconds of f luoroscopic time was utilized during procedure. Roughly 30 images saved during procedure, unable to t ransfer to PACs at this time. COMPARISON: None. FINDINGS: The patient swallowed contrast without difficulty or delay. Esophageal peristalsis and mo tility are within normal limits. There is good flow of contrast along the diaphragmatic hiatus into proximal stomach and subsequent flow from proximal anastomosis into gastric sleeve. There is mild del ay in flow from distal sleeve at the anastomosis into pylorus and duodenal sweep. Patient remains asy mptomatic. There is no evidence of contrast extravasation to suggest leak. IMPRESSION: No evidence of leak or significant obstruction status post gastric sleeve surgery yesterd ay.
[2019-08-26] MEDS ORDERED: PREGABALIN 100 MG CAP PO SCH ×2 (09:54→21:00)
[2019-08-26 10:54] LABS: Basophils % (A) 0 %; Eosinophils # (A) 0.1 k/uL (0-0.7); Eosinophils % (A) 1 %; HCT 36.9 % (34.0-46.0); Lymphocytes # (A) 1.2 k/uL (1.0-4.8); Lymphocytes % (A) 14 %; MCH 29.6 pg (25.0-35.0); MCV 92.8 fL (80.0-100.0); Mean Platelet Volume 7.9; Monocytes # (A) 0.5 k/uL (0-1.0); Monocytes % (A) 5 %; Neutrophils % (A) 79 %; Platelet Count 358 k/uL (150-450); RBC 3.97 m/uL (3.80-5.40); RDW 14.4 % (11.5-15.5); WBC 8.9 k/uL (3.8-10.6)
[2019-08-26 10:58] LABS: HGB 11.8 gm/dL (11.4-16.0)
[2019-08-26 11:15] LABS: African American GFR (CKD) >90 (>60 ml/min/1.73 sqM); Anion Gap 10 mmol/L; Blood Urea Nitrogen 25 mg/dL (7-17); Calcium 8.5 mg/dL (8.4-10.2); Carbon Dioxide 20 mmol/L (22-30); Chloride 108 mmol/L (98-107); Magnesium 1.9 mg/dL (1.6-2.3); Non-African American GFR(CKD) 80 (>60 ml/min/1.73 sqM); Phosphorus 3.7 mg/dL (2.5-4.5); Potassium 4.5 mmol/L (3.5-5.1); Sodium 138 mmol/L (137-145)
[2019-08-26] MEDS: ENOXAPARIN 40 MG/0.4 ML SYRINGE SQ SCH (12:24)
--- NOTE | 2019-08-26 13:41 | CONS ---
CONSULTATION REASON FOR CONSULTATION: Advice regarding DJD and multiple medical issues requested by Dr. Bernal. HISTORY OF PRESENT ILLNESS: This 54-year-old woman with a past medical history of multiple medical problems including DJD, history of adenoidectomy, history of bilateral neuropathy, history of depression, being followed by Dr. Díaz in the outpatient setting underwent laparoscopic sleeve gastrectomy for morbid obesity by Dr. Bernal. The patient tolerated the procedure. Patient complains of headache and occasional cough. No chest pain. No palpitations. No fever. No hematochezia or melena at this time. PAST MEDICAL HISTORY: History of DJD, history of bilateral neuropathy, adenoidectomy. MEDICATIONS: Prior to admission include home medications are: 1. Morphine sulfate 30 mg p.o. b.i.d. 2. [place] 7.5 b.i.d. p.r.n. 3. Cymbalta 60 mg daily. 4. Requip 0.25 mg daily p.r.n. 5. Seroquel 50 mg. 6. Lyrica 300 mg p.o. b.i.d. ALLERGIES: None. FAMILY HISTORY: History of skin cancer. SOCIAL HISTORY: No history of smoking. No history of alcohol intake. REVIEW OF SYSTEMS: ENT mentioned earlier. CARDIOVASCULAR: No angina. RESPIRATORY: As mentioned earlier. GI: As mentioned earlier. no dysuria. NERVOUS SYSTEM: No numbness or weakness. ALLERGY/IMMUNOLOGY: No asthma or hayfever. MUSCULOSKELETAL as mentioned earlier. HEMATOLOGY/ONCOLOGY: No history of anemia. ENDOCRINE: No history of diabetes or hypothyroidism. CONSTITUTIONAL: As mentioned earlier. DERMATOLOGY: Negative. RHEUMATOLOGY: As mentioned earlier. PSYCHIATRIC: As mentioned earlier. PHYSICAL EXAM: Patient is alert, oriented x3. Pulse 78. Blood pressure 140/88, respirations 14, temperature 98 degrees, pulse ox 94% on 3 L. HEENT: Conjunctivae normal. NECK: No JVD. CARDIOVASCULAR: S1, S2 normal. RESPIRATORY: Breath sounds diminished in the bases. A few scattered rhonchi. No crackles. ABDOMEN: Soft, status post surgery. LEGS no edema, no swelling. NERVOUS SYSTEM: No focal deficits. JOINTS: No active deforming arthropathy. LYMPHATICS: No lymph nodes palpable in the neck, axillae or groin. LABS: Potassium is 4.5. The preop labs are hematology within normal limits and chemistry shows BUN is 26 and AST/ALT was slightly elevated. ASSESSMENT: 1. Status post laparoscopic sleeve gastrectomy for morbid obesity. 2. Headache. 3. Degenerative joint disease. 4. History of bilateral neuropathy. 5. Increased elevated AST/ALT. 6. Adenoidectomy. 7. Back surgery. 8. Depression. 9. Obesity with body mass 34.7. RECOMMENDATIONS: This 54-year-old woman who presented with multiple complex medical issues. We will monitor the patient closely, continue the current medications, and symptomatic treatment. Agree with the bronchodilators p.r.n. I would also recommend proton pump inhibitors. DVT prophylaxis and repeat labs. The home dose of pain medication including morphine, Lyrica, Seroquel and Requip and other medication may be initiated once the patient is p.o. We will follow the patient closely with you. Thank you Dr. Bernal for letting us participate in the care this patient. The patient may be asked to follow up with Dr. Díaz closely after discharge. MMFIDEL / GRUPO: [id number] /
[2019-08-26] MEDS ORDERED: NA PHOS,M-B/NA PHOS,DI-BA 133 ML ENEMA RECTAL ONE (14:15)
[2019-08-26 14:46] VITALS: BMI 34.7
[2019-08-26 15:32] VITALS: BP 132/77; PULSE 86; TEMP 97.9
--- NOTE | 2019-08-26 16:07 | P.DS ---
Providers Date of admission: 08/25/19 11:14 Expected date of discharge: 08/26/19 Attending physician: Jered Bernal Consults: 08/25/19 14:27 Consult Physician Routine Consulting Provider: Katya Cardenas Consult Reason/Comments: medical Do you want consulting provider notified?: Yes Primary care physician: [facility] Course: This is a 54-year-old female who underwent laparoscopic sleeve yesterday. Patient did well postoperative. Please hospital chart for details Procedures: laparoscopic sleeve gastrecto Plan - Discharge Summary Discharge Rx Participant: Yes New Discharge Prescriptions: New Bisacodyl [Dulcolax] 5 mg PO DAILY PRN #10 tablet. PRN Reason: Constipation Simethicone 40 mg/0.6 ml Drops [Mylicon Drops] 40 mg PO PCHS PRN #30 ml PRN Reason: Gas Omeprazole [PriLOSEC] 40 mg PO DAILY #30 capsule. Ondansetron Odt [Zofran Odt] 4 mg PO Q8HR PRN #9 tab PRN Reason: Nausea HYDROcodone/APAP 5-325MG [[place] 5-325] 1 tab PO Q6HR PRN #10 tab PRN Reason: Pain No Action Pregabalin [Lyrica] 300 mg PO BID Morphine Sulfate [Ms Contin] 30 mg PO Q12HR HYDROcodone/APAP 7.5-325MG [[place] 7.5-325] 1 tab PO BID PRN PRN Reason: Pain DULoxetine HCL [Cymbalta] 60 mg PO DAILY rOPINIRole HCL [Requip] 0.25 mg PO DAILY PRN PRN Reason: Pain QUEtiapine [SEROquel] 50 mg PO HS Discharge Medication List Pregabalin [Lyrica] 300 mg PO BID 05/30/16 [History] Morphine Sulfate [Ms Contin] 30 mg PO Q12HR 05/08/17 [History] HYDROcodone/APAP 7.5-325MG [[place] 7.5-325] 1 tab PO BID PRN 09/15/18 [History] DULoxetine HCL [Cymbalta] 60 mg PO DAILY 11/10/18 [History] rOPINIRole HCL [Requip] 0.25 mg PO DAILY PRN 11/10/18 [History] QUEtiapine [SEROquel] 50 mg PO HS 08/16/19 [History] Bisacodyl [Dulcolax] 5 mg PO DAILY PRN #10 tablet. 08/26/19 [Rx] HYDROcodone/APAP 5-325MG [[place] 5-325] 1 tab PO Q6HR PRN #10 tab 08/26/19 [Rx] Omeprazole [PriLOSEC] 40 mg PO DAILY #30 capsule. 08/26/19 [Rx] Ondansetron Odt [Zofran Odt] 4 mg PO Q8HR PRN #9 tab 08/26/19 [Rx] Simethicone 40 mg/0.6 ml Drops [Mylicon Drops] 40 mg PO PCHS PRN #30 ml 08/26/19 [Rx] Patient Instructions/Handouts: *Surgery [facility] - Scopalamine Patch Instructions
--- NOTE | 2019-08-26 16:43 | PN ---
PROGRESS NOTE DATE OF SERVICE: 08/26/2019 This 54-year-old woman who was admitted after laparoscopic sleeve gastrectomy is being closely monitored. Upper GI series done today showed no evidence of a leak or any obstruction. No chest pain. No palpitations. No fever. PHYSICAL EXAMINATION: Alert and oriented x3. Pulse 77, blood pressure 143/91, respiration 18, temperature 98.1, pulse ox 94% on room air. HEENT: Conjunctivae normal. NECK: No jugular venous distention. CARDIOVASCULAR SYSTEM: S1, S2 muffled. RESPIRATORY SYSTEM: Breath sounds diminished at the bases. No rhonchi. No crackles. ABDOMEN: Soft. Status post surgery. LEGS: No edema. No swelling. NERVOUS SYSTEM: No focal deficit. LABS: CBC within normal limits. Sodium 138, potassium 4.5. AST was 405 and ALT was 198. ASSESSMENT: 1. Status post laparoscopic sleeve gastrectomy for morbid obesity. 2. Headaches. 3. Elevated liver function tests AST, ALT. 4. Degenerative joint disease. 5. History of bilateral neuropathy. 6. Adenoidectomy. 7. History of back surgery. 8. History of depression. 9. Obesity with body mass index of 34.7. RECOMMENDATIONS AND DISCUSSION: In this patient who was admitted after surgery, at this time I recommend to continue the current medications, continue symptomatic treatment. I recommend repeat LFTs. The rest of the recommendations per Dr. Bernal. Avoid hepatotoxic medications. Further recommendations to follow. MMSCOTTL / TEVINN: [id number] /
[2019-08-26] MEDS ORDERED: BENZOCAINE 20% HEMORRHOIDAL OINT 28GM RECTAL SCH (18:00)
== END 2019-08-26 16:39 | disposition home or self-care (01) | DRG 621 ==
LOC: 2ORMAIN 11:14 → 4SSUR 15:00
PROVIDERS: ADMIT Surgery; ATTEND Surgery
PROC: 0DB64Z3 Excision of Stomach, Percutaneous Endoscopic Approach, Vertical (ICD-10-PCS; principal; 2019-08-25 12:50)
DX: E66.01 Morbid (severe) obesity due to excess calories (principal); K76.0 Fatty (change of) liver, not elsewhere classified; F32.9 Major depressive disorder, single episode, unspecified; G62.9 Polyneuropathy, unspecified; Z68.35 Body mass index [BMI] 35.0-35.9, adult; G89.29 Other chronic pain; M54.9 Dorsalgia, unspecified; M19.90 Unspecified osteoarthritis, unspecified site; Z79.891 Long term (current) use of opiate analgesic; Z79.899 Other long term (current) drug therapy; Z71.3 Dietary counseling and surveillance; Z90.89 Acquired absence of other organs; Z80.8 Family history of malignant neoplasm of other organs or systems; R51 Headache
CPT/HCPCS: 74240; 80051; 80053; 82310; 82565; 83735; 84100; 84132; 84520; 85025; 88307; 88312; 94640

== ENCOUNTER → 2019-08-30 | Outpatient (CLI) | payer MEDICARE ==
[2019-08-30 14:33] VITALS: BP 111/73; PULSE 101; RESP 16; TEMP 99; BMI 34.2
--- NOTE | 2019-08-30 15:59 | P.HPBAR ---
Bariatric H&P - History & Physicial H&P Date: 08/30/19 History & Physicial: Visit/CC: Post surg sleeve Patient initial contact: Initial weight: 107.104 kg Initial weight in pounds: 236.12 Height: 5 ft 8 in Initial BMI: 35.9 Last weight: Current weight: 102.058 kg Current weight in pounds: 225.00 Current BMI: 34.2 [place] body weight (based on NIH guidelines): 63.503 kg Excess body weight loss: 11.5% The patient is a 54 year-old F who presents for Bariatric Assessment. Patient resents today for postoperative follow-up. She is doing quite well. She has no point. Past Medical History Past Medical History: Osteoarthritis (OA) Additional Past Medical History / Comment(s): valerio neuropathy-post back surgery,CHRONIC BACK PAIN,fatty liver History of Any Multi-Drug Resistant Organisms: None Reported Past Surgical History: Adenoidectomy, Back Surgery, Bariatric Surgery, Orthopedic Surgery Additional Past Surgical History / Comment(s): BACK SURGERY X 5. UP3. [facility]. PAIN CLINIC PROCEDURES. 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 Past Psychological History: Depression Smoking Status: Never smoker Past Alcohol Use History: None Reported Past Drug Use History: None Reported - Past Family History Father Family Medical History: Cancer Additional Family Medical History / Comment(s): skin Mother Family Medical History: Cancer Additional Family Medical History / Comment(s): skin Surgical - Exam Vital Signs Temp Pulse Resp BP 99.0 F 101 H 16 111/73 08/30/19 14:23 08/30/19 14:23 08/30/19 14:23 08/30/19 14:23 - General well developed, well nourished, no distress - Eyes PERRL - ENT normal pinna - Neck no masses - Respiratory normal expansion - Cardiovascular Rhythm: regular - Abdomen Abdomen: soft, non tender Bariatric Assessment & Plan Plan: Status post sleeve gastric. Patient still quite well. She'll follow-up in 2 weeks. Bariatric Checklist Checklist: Plan: Checklist: EGD: 1. Hiatal hernia: 2. H. Pylori: HgbA1c: Vitamin D: Smoking: Never smoker Primary care physician referral: crissy Psychiatry clearance: Cardiology clearance: Sleep study: Diet journal: VTE risk score: VTE risk level: Rehab needs at discharge:
== END | disposition home or self-care (01) ==
LOC: BARWHC3 13:46
PROVIDERS: ATTEND Surgery
DX: E66.01 Morbid (severe) obesity due to excess calories (principal); Z68.34 Body mass index [BMI] 34.0-34.9, adult; Z98.84 Bariatric surgery status
CPT/HCPCS: 97803; G0463; 99211

== ENCOUNTER → 2019-09-13 | Outpatient (CLI) | payer MEDICARE ==
--- NOTE | 2019-09-13 14:08 | P.HPBAR ---
Bariatric H&P - History & Physicial H&P Date: 09/13/19 History & Physicial: Visit/CC: Patient initial contact: Initial weight: 107.104 kg Initial weight in pounds: Height: Initial BMI: Last weight: Current weight: 217 Current weight in pounds: 225 Current BMI: [place] body weight (based on NIH guidelines): Excess body weight loss: The patient is a 54 year-old F who presents for Bariatric Assessment. Patient presents today for sleeve yesterday follow-up. She is also very pounds last visit. She has mild GERD Past Medical History Past Medical History: Osteoarthritis (OA) Additional Past Medical History / Comment(s): valerio neuropathy-post back surgery,CHRONIC BACK PAIN,fatty liver History of Any Multi-Drug Resistant Organisms: None Reported Past Surgical History: Adenoidectomy, Back Surgery, Bariatric Surgery, Orthopedic Surgery Additional Past Surgical History / Comment(s): BACK SURGERY X 5. UP3. [facility]. PAIN CLINIC PROCEDURES. 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 Past Psychological History: Depression Smoking Status: Never smoker Past Alcohol Use History: None Reported Past Drug Use History: None Reported - Past Family History Father Family Medical History: Cancer Additional Family Medical History / Comment(s): skin Mother Family Medical History: Cancer Additional Family Medical History / Comment(s): skin Surgical - Exam - General well developed, well nourished, no distress - Eyes PERRL - ENT normal pinna - Neck no masses - Respiratory normal expansion - Cardiovascular Rhythm: regular - Abdomen Abdomen: soft, non tender Bariatric Assessment & Plan Plan: Status post sleeve gastrectomy. Patient's care is minimal. She will be observed. She'll follow-up in 4 weeks. Bariatric Checklist Checklist: Plan: Checklist: EGD: 1. Hiatal hernia: 2. H. Pylori: HgbA1c: Vitamin D: Smoking: Never smoker Primary care physician referral: crissy Psychiatry clearance: Cardiology clearance: Sleep study: Diet journal: VTE risk score: VTE risk level: Rehab needs at discharge:
[2019-09-13 14:51] VITALS: BMI 32.8
[2019-09-16 09:07] VITALS: BP 113/72; PULSE 74; TEMP 98.2
== END | disposition home or self-care (01) ==
LOC: BARWHC3 12:54
PROVIDERS: ATTEND Surgery
DX: E66.01 Morbid (severe) obesity due to excess calories (principal); Z98.84 Bariatric surgery status; Z68.32 Body mass index [BMI] 32.0-32.9, adult
CPT/HCPCS: 97803; G0463; 99211

== ENCOUNTER → 2019-11-01 | Outpatient (CLI) | payer MEDICARE ==
--- NOTE | 2019-11-01 16:11 | XR ---
Right knee HISTORY: Trauma and pain 3 views of the right knee Bone mineralization, joint spaces and alignment are maintained with exception of mild joint space los s in the medial compartment with some minimal spurring. No evident joint effusion. IMPRESSION: Mild osteoarthritic changes suspected.
== END | disposition home or self-care (01) ==
LOC: RADXRYALE 13:45
PROVIDERS: ATTEND Physician Assistant Medical
DX: M25.561 Pain in right knee (principal)

== ENCOUNTER → 2020-08-14 | Outpatient (CLI) | payer MEDICARE ==
[2020-08-14 15:05] VITALS: BP 136/77; PULSE 54; TEMP 97; BMI 28.5
--- NOTE | 2020-09-21 12:27 | P.HPBAR ---
Bariatric H&P - History & Physicial H&P Date: 08/14/20 History & Physicial: Visit/CC: one year follow up Patient initial contact: Initial weight: 107.104 kg Initial weight in pounds: 236.12 Height: 5 ft 8 in Initial BMI: 35.9 Last weight: Current weight: 85.275 kg Current weight in pounds: 188.00 Current BMI: 28.5 [place] body weight (based on NIH guidelines): 63.503 kg Excess body weight loss: 50.0% The patient is a 55 year-old F who presents for Bariatric Assessment. Patient resents today for sleeve gastrectomy fall. She's lost a significant amount of weight. She's also 100 pounds. She has developed a well-formed pannus. She is requesting panniculectomy. Past Medical History Past Medical History: Osteoarthritis (OA) Additional Past Medical History / Comment(s): valerio neuropathy-post back surgery,CHRONIC BACK PAIN,fatty liver History of Any Multi-Drug Resistant Organisms: None Reported Past Surgical History: Adenoidectomy, Back Surgery, Bariatric Surgery, Orthopedic Surgery Additional Past Surgical History / Comment(s): BACK SURGERY X 5. UP3. [facility]. PAIN CLINIC PROCEDURES. 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 Past Psychological History: Depression Smoking Status: Never smoker Past Alcohol Use History: None Reported Past Drug Use History: None Reported - Past Family History Father Family Medical History: Cancer Additional Family Medical History / Comment(s): skin Mother Family Medical History: Cancer Additional Family Medical History / Comment(s): skin Surgical - Exam Vital Signs Temp Pulse BP 97 F L 54 L 136/77 08/14/20 15:02 08/14/20 15:02 08/14/20 15:02 - General well developed, well nourished, no distress - Eyes PERRL - ENT normal pinna - Neck no masses - Respiratory normal expansion - Cardiovascular Rhythm: regular - Abdomen Well-formed panniculus Abdomen: soft, non tender Bariatric Assessment & Plan Plan: Resolving morbid obesity. Patient developed a well-formed panniculus. She was given an information on panniculectomy. Bariatric Checklist Checklist: Plan: Checklist: EGD: 1. Hiatal hernia: 2. H. Pylori: HgbA1c: Vitamin D: Smoking: Never smoker Primary care physician referral: crissy Psychiatry clearance: Cardiology clearance: Sleep study: Diet journal: VTE risk score: VTE risk level: Rehab needs at discharge:
== END | disposition home or self-care (01) ==
LOC: BARWHC3 13:58
PROVIDERS: ATTEND Surgery
DX: E66.01 Morbid (severe) obesity due to excess calories (principal); M19.90 Unspecified osteoarthritis, unspecified site; Z68.28 Body mass index [BMI] 28.0-28.9, adult; Z98.84 Bariatric surgery status; Z98.890 Other specified postprocedural states
CPT/HCPCS: 99211

== ENCOUNTER → 2020-09-18 | Outpatient (CLI) | payer MEDICARE ==
[2020-09-18 15:07] VITALS: BP 141/85; PULSE 83; TEMP 98.1; BMI 29.0
--- NOTE | 2020-09-18 15:58 | P.HPBAR ---
Bariatric H&P - History & Physicial H&P Date: 09/18/20 History & Physicial: Visit/CC: sleeve follow up Patient initial contact: Initial weight: 107.104 kg Initial weight in pounds: 236.12 Height: 5 ft 8 in Initial BMI: 35.9 Last weight: Current weight: 86.636 kg Current weight in pounds: 191.00 Current BMI: 29.0 [place] body weight (based on NIH guidelines): 63.503 kg Excess body weight loss: 46.9% The patient is a 55 year-old F who presents for Bariatric Assessment. Patient presents today for sleeve gastrectomy fall. She's had some complaints of GERD. She's had excellent weight loss. Past Medical History Past Medical History: Osteoarthritis (OA) Additional Past Medical History / Comment(s): valerio neuropathy-post back surgery,CHRONIC BACK PAIN,fatty liver History of Any Multi-Drug Resistant Organisms: None Reported Past Surgical History: Adenoidectomy, Back Surgery, Bariatric Surgery, Orthopedic Surgery Additional Past Surgical History / Comment(s): BACK SURGERY X 5. UP3. [facility]. PAIN CLINIC PROCEDURES. 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 Past Psychological History: Depression Smoking Status: Never smoker Past Alcohol Use History: None Reported Past Drug Use History: None Reported - Past Family History Father Family Medical History: Cancer Additional Family Medical History / Comment(s): skin Mother Family Medical History: Cancer Additional Family Medical History / Comment(s): skin Surgical - Exam Vital Signs Temp Pulse BP 98.1 F 83 141/85 09/18/20 15:05 09/18/20 15:05 09/18/20 15:05 - General well developed, well nourished, no distress - Eyes PERRL - ENT normal pinna - Neck no masses - Respiratory normal expansion - Cardiovascular Rhythm: regular - Abdomen Abdomen: soft, non tender Bariatric Assessment & Plan Plan: Improving morbid obesity. Patient anus 29. Her GERD is minimal old be observed. She'll follow-up in 4 weeks. Bariatric Checklist Checklist: Plan: Checklist: EGD: 1. Hiatal hernia: 2. H. Pylori: HgbA1c: Vitamin D: Smoking: Never smoker Primary care physician referral: crissy Psychiatry clearance: Cardiology clearance: Sleep study: Diet journal: VTE risk score: VTE risk level: Rehab needs at discharge:
== END ==
LOC: BARWHC3 14:07
PROVIDERS: ATTEND Surgery
DX: E66.01 Morbid (severe) obesity due to excess calories (principal); K21.9 Gastro-esophageal reflux disease without esophagitis; Z68.29 Body mass index [BMI] 29.0-29.9, adult; Z98.84 Bariatric surgery status; F32.9 Major depressive disorder, single episode, unspecified
CPT/HCPCS: 97803; G0463; 99211

== ENCOUNTER → 2020-12-12 | Outpatient (CLI) | payer MEDICARE ==
[2020-12-12 09:38] LABS: Albumin 4.3 g/dL (3.5-5.0); Calcium 9.3 mg/dL (8.4-10.2); Potassium 3.9 mmol/L (3.5-5.1); Total Bilirubin 0.5 mg/dL (0.2-1.3); Total Protein 7.9 g/dL (6.3-8.2)
[2020-12-12 10:11] LABS: Basophils % (A) 1 %; Eosinophils # (A) 0.2 k/uL (0-0.7); Eosinophils % (A) 4 %; HGB 13.1 gm/dL (11.4-16.0); Lymphocytes # (A) 1.4 k/uL (1.0-4.8); Lymphocytes % (A) 35 %; MCH 30.3 pg (25.0-35.0); MCHC 34.6 g/dL (31.0-37.0); MCV 87.7 fL (80.0-100.0); Mean Platelet Volume 7.8; Monocytes # (A) 0.2 k/uL (0-1.0); Monocytes % (A) 6 %; Neutrophils # (A) 2.1 k/uL (1.3-7.7); Neutrophils % (A) 53 %; Platelet Count 295 k/uL (150-450); RBC 4.33 m/uL (3.80-5.40)
== END | disposition home or self-care (01) ==
LOC: LABPAT 08:23
PROVIDERS: ATTEND Surgery
DX: Z01.812 Encounter for preprocedural laboratory examination (principal)
CPT/HCPCS: 36415; 80053; 85025; 93005

== ENCOUNTER 2020-12-27 07:47 | Day surgery (SDC) | payer MEDICARE ==
[2020-12-25 09:52] VITALS: BMI 28.5
[~2020-12-27 07:47] MED LIST changes: -DEXAMETHASONE SOD PHOSPHATE 10 MG/ML 1 ML VIAL IV ONE; -ENOXAPARIN 40 MG/0.4 ML SYRINGE SQ ONE; -HYDROmorphone 0.5 MG/0.5 ML SYRINGE IVP PRN; +LIDOCAINE 1% (10MG/ML) FOR IV START INTRADERMA PRN; -MIDAZOLAM 2 MG/2 ML VIAL IV PRN
[2020-12-27] MEDS ORDERED: HEPARIN SODIUM,PORCINE/PF 5,000 UNIT/0.5 ML SYRINGE SQ ONE (08:39)
[2020-12-27] MEDS ORDERED: DEXAMETHASONE SOD PHOSPHATE 4 MG/ML 1 ML VIAL IV ONE (08:49)
[2020-12-27] MEDS ORDERED: HEPARIN SODIUM,PORCINE 5,000 UNIT/ML 1 ML VIAL SQ ONE (09:03)
--- NOTE | 2020-12-27 09:10 | P.GSHP ---
History of Present Illness H&P Date: 12/27/20 Chief Complaint: Pannichilaria Is a 55-year-old female who presents today for tracheotomy. Patient has had significant weight loss. She has a well-formed panniculus. She's a troubles with panniculitis. Past Medical History Past Medical History: Osteoarthritis (OA) Additional Past Medical History / Comment(s): valerio neuropathy-post back surgery,CHRONIC BACK PAIN,fatty liver History of Any Multi-Drug Resistant Organisms: None Reported Past Surgical History: Adenoidectomy, Back Surgery, Bariatric Surgery, Orthopedic Surgery Additional Past Surgical History / Comment(s): BACK SURGERY X 5. UP3. [facility]. PAIN CLINIC PROCEDURES. 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 Smoking Status: Never smoker - Past Family History Father Family Medical History: Cancer Additional Family Medical History / Comment(s): skin Mother Family Medical History: Cancer Additional Family Medical History / Comment(s): skin Medications and Allergies Home Medications Medication Instructions Recorded Confirmed Type Pregabalin [Lyrica] 300 mg PO BID 05/30/16 12/27/20 History Morphine Sulfate [Ms Contin] 30 mg PO HS 05/08/17 12/27/20 History HYDROcodone/APAP 7.5-325MG [[place] 1 tab PO BID PRN 09/15/18 12/27/20 History 7.5-325] rOPINIRole HCL [Requip] 0.25 mg PO DAILY PRN 11/10/18 12/27/20 History QUEtiapine [SEROquel] 50 mg PO HS 08/16/19 12/27/20 History bisacodyL [Dulcolax] 5 mg PO DAILY PRN #10 tablet. 08/26/19 12/27/20 Rx Allergies Allergy/AdvReac Type Severity Reaction Status Date / Time No Known Allergies Allergy Verified 12/25/20 09:40 Surgical - Exam Vital Signs Temp Pulse Resp BP Pulse Ox 97.1 F L 60 16 120/59 97 12/27/20 08:31 12/27/20 08:31 12/27/20 08:31 12/27/20 08:31 12/27/20 08:31 - General well developed, well nourished, no distress - Eyes PERRL - ENT normal pinna - Neck no masses - Respiratory normal expansion - Cardiovascular Rhythm: regular - Abdomen Abdomen: soft, non tender Assessment and Plan Assessment: Panniculus. We'll perform a panniculectomy. Patient reversed surgery including the possible need for cosmetic surgery, wound infection and bleeding
[2020-12-27] MEDS ORDERED: ROCURONIUM 10 MG/ML (5 ML VIAL) IV ONE (09:21)
[2020-12-27] MEDS ORDERED: GLYCOPYRROLATE 0.2 MG/ML 2 ML VIAL ONE (09:21)
[2020-12-27] MEDS ORDERED: NEOSTIGMINE 1 MG/ML 10 ML VIAL ONE (09:21)
[2020-12-27] MEDS ORDERED: SUCCINYLCHOLINE CHLORIDE 100 MG/5 ML SYR IV ONE (09:21)
[2020-12-27] MEDS ORDERED: fentaNYL (PF) 50 MCG/ML 2 ML AMP ONE (09:21)
[2020-12-27] MEDS ORDERED: ePHEDrine 50 MG/ML 1 ML AMP ONE (09:21)
[2020-12-27] MEDS ORDERED: MIDAZOLAM 2 MG/2 ML VIAL ONE (09:21)
[2020-12-27] MEDS ORDERED: LIDOCAINE 1% INJ 10MG/ML (20 ML MDV) ONE (09:21)
[2020-12-27] MEDS ORDERED: PROPOFOL 10 MG/ML 20 ML VIAL IV ONE (09:21)
[2020-12-27] MEDS ORDERED: LACTATED RINGERS 1,000 ML IV ONE ×2 (11:28→11:32)
[2020-12-27] MEDS ORDERED: NALOXONE 0.4 MG/ML 1 ML VIAL IV PRN (11:32)
[2020-12-27] MEDS ORDERED: ONDANSETRON 4 MG/2 ML VIAL IVP PRN (11:32)
--- NOTE | 2020-12-27 11:32 | P.OP ---
Date of Procedure: 12/27/20 Preoperative Diagnosis: Panniculus Postoperative Diagnosis: Panniculus Procedure(s) Performed: Panniculectomy Anesthesia: JUAN F Surgeon: Jered Bernal Estimated Blood Loss (ml): 20 Pathology: other (Skin for disposal) Condition: stable Disposition: PACU Description of Procedure: PROCEDURE: The patient was placed on the operating table in supine position and received general anesthetic. The abdomen was prepped and draped in the usual sterile fashion. The lower skin incision was then made after the skin was marked with a marker. The incision ran from the pubic area to the level of the anterosuperior iliac spine. Using blunt and sharp dissection and electrocautery the subcutaneous tissues were then dissected down to the level of the fascia external oblique. Next, a mike shaped incision was made around the umbilicus and the umbilicus was then dissected down to the level of the fascia external oblique. Care was taken to ensure that the umbilical stalk was wide enough in order to maintain viability of the umbilicus. After the umbilicus was dissected a 0 Vicryl suture was used to orientate the umbilicus. The suture was placed at the 12 o'clock position of the umbilicus. Following this the dissection was then made from the inferior pannicular incision cephalad. The xiphoid and costal margins were the limits of the dissection. Several small perforating vessels were ligated and cautery was used to maintain hemostasis. Once the dissection was performed the panniculus was then divided in the midline from the level of the umbilicus towards the pubic area. Downward and lateral traction was then placed on the abdominal wall and the skin was suitably marked for transection of the umbilicus. The skin was then incised and the Bovie was used for dissection of the pannicular flap. Next, three 10-Macedonian VERNELL drains were placed in the wound and brought out through separate stab incisions at the level of the pubic area. The drains were secured to the skin using 3-0 nylon. After the VERNELL drains were secured, Suni's fascia was closed with interrupted 0 Vicryl sutures and then the skin was closed with running 3-0 Monocryl sutures. Prior to closure of the abdominal wall care was taken to ensure that both the abdominal wall and the abdominal wall flap were hemostatic. Next, the umbilicus was reattached to the abdominal wall. A marking line was made across the top of the iliac crest and this line intercepted with the midline abdominal wall line that had been previously made in the preoperative hold area. A small semicircular U-shaped incision was created at the intersection of the two lines and the umbilicus was brought up through this incision. The umbilicus was then trimmed and secured to the skin using 3-0 Monocryl sutures. At this point the drains were placed to suction. The abdomen was cleaned and then sterile tape was placed over top of the incisions. Abdominal binder was then placed. The patient tolerated the procedure well. The patient was sent to recovery room in stable condition.
[2020-12-27] MEDS: HYDROmorphone 0.5 MG/0.5 ML SYRINGE IVP PRN ×4 (11:35→12:17)
[2020-12-27] MEDS: KETOROLAC 15 MG/ML 1 ML VIAL IVP SCH ×3 (13:04→23:37)
[2020-12-27] MEDS: HYDROcodone/APAP 5-325MG 1 EACH TAB PO PRN ×2 (14:22→19:41)
[2020-12-27] MEDS ORDERED: HYDROmorphone 1 MG/ML 1 ML SYRINGE IVP PRN (16:16)
[2020-12-27] MEDS: PREGABALIN 100 MG CAP PO SCH (16:22)
[2020-12-27] MEDS ORDERED: MORPHINE SULFATE ER 30 MG TABLET PO SCH (21:00)
[2020-12-27] MEDS ORDERED: QUEtiapine 50 MG TAB PO SCH (21:00)
[2020-12-28] MEDS: KETOROLAC 15 MG/ML 1 ML VIAL IVP SCH ×2 (05:38→12:34)
[2020-12-28] MEDS: PREGABALIN 100 MG CAP PO SCH (07:35)
[2020-12-28] MEDS: HYDROcodone/APAP 5-325MG 1 EACH TAB PO PRN ×2 (07:39→14:23)
[2020-12-28] MEDS ORDERED: ENOXAPARIN 40 MG/0.4 ML SYRINGE SQ SCH (09:00)
[2020-12-28 09:48] LABS: African American GFR (CKD) >90 (>60 ml/min/1.73 sqM); Anion Gap 6 mmol/L; Blood Urea Nitrogen 17 mg/dL (7-17); Calcium 9.4 mg/dL (8.4-10.2); Carbon Dioxide 29 mmol/L (22-30); Chloride 106 mmol/L (98-107); Glucose 93 mg/dL (74-99); Non-African American GFR(CKD) >90 (>60 ml/min/1.73 sqM); Potassium 4.5 mmol/L (3.5-5.1); Sodium 141 mmol/L (137-145)
[2020-12-28 10:08] LABS: Basophils % (A) 0 %; Eosinophils # (A) 0.1 k/uL (0-0.7); Eosinophils % (A) 1 %; HCT 37.3 % (34.0-46.0); HGB 12.3 gm/dL (11.4-16.0); Lymphocytes # (A) 1.6 k/uL (1.0-4.8); Lymphocytes % (A) 19 %; MCH 29.5 pg (25.0-35.0); MCV 89.4 fL (80.0-100.0); Mean Platelet Volume 7.6; Monocytes # (A) 0.4 k/uL (0-1.0); Monocytes % (A) 4 %; Neutrophils # (A) 6.3 k/uL (1.3-7.7); Neutrophils % (A) 75 %; Platelet Count 254 k/uL (150-450); RBC 4.17 m/uL (3.80-5.40); RDW 13.9 % (11.5-15.5); WBC 8.4 k/uL (3.8-10.6)
--- NOTE | 2020-12-28 11:25 | P.CONS ---
History of Present Illness - Reason for Consult Consult date: 12/28/20 Medical management hypertension, chronic back pain, neuropathy - Chief Complaint Status post panniculectomy - History of Present Illness This is a pleasant 55-year-old female who was admitted under surgical services status post panniculectomy with Dr. Bernal and we were consulted for medical m anagement as patient has history of chronic back pain, neuropathy, hypertension. Patient follows with Dr. Díaz in the outpatient setting. Patient states she does have a past medical history of hypertension which is currently controlled without medications. Patient also has history of osteoarthritis with bilateral neuropathy status post back surgery in the past medical history of a fatty liver. Patient states she has had multiple back surgeries along with bariatric surgery and underwent gastric sleeve in August 2019. Patient denies smoking and admits to drinking very rarely on occasion socially. She denies any other drug use. Patient does take Requip as needed along with stool softeners, Seroquel, Lyrica, MS Contin in the outpatient setting. Labs this morning reveal a white blood count of 8.4, hemoglobin 12.3, platelets 254, sodium is 141, potassium is 4.5, current BUN is 17 and creatinine is 0.65. Past Medical History Past Medical History: Osteoarthritis (OA) Additional Past Medical History / Comment(s): valerio neuropathy-post back surgery,CHRONIC BACK PAIN,fatty liver History of Any Multi-Drug Resistant Organisms: None Reported Past Surgical History: Adenoidectomy, Back Surgery, Bariatric Surgery, Orthopedic Surgery Additional Past Surgical History / Comment(s): BACK SURGERY X 5. UP3. [facility]. PAIN CLINIC PROCEDURES. 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 Past Psychological History: Depression Smoking Status: Never smoker Past Alcohol Use History: None Reported Past Drug Use History: None Reported - Past Family History Father Family Medical History: Cancer Additional Family Medical History / Comment(s): skin Mother Family Medical History: Cancer Additional Family Medical History / Comment(s): skin Medications and Allergies Home Medications Medication Instructions Recorded Confirmed Type Pregabalin [Lyrica] 300 mg PO BID 05/30/16 12/27/20 History Morphine Sulfate [Ms Contin] 30 mg PO HS 05/08/17 12/27/20 History HYDROcodone/APAP 7.5-325MG [Round O 1 tab PO BID PRN 09/15/18 12/27/20 History 7.5-325] rOPINIRole HCL [Requip] 0.25 mg PO DAILY PRN 11/10/18 12/27/20 History QUEtiapine [SEROquel] 50 mg PO HS 08/16/19 12/27/20 History bisacodyL [Dulcolax] 5 mg PO DAILY PRN #10 tablet. 08/26/19 12/27/20 Rx Allergies Allergy/AdvReac Type Severity Reaction Status Date / Time No Known Allergies Allergy Verified 12/25/20 09:40 Physical Exam Vitals: Vital Signs Temp Pulse Pulse Resp BP Pulse Ox 12/28/20 07:50 97.7 F 59 L 17 143/77 97 12/28/20 01:23 98.2 F 68 16 128/77 94 L 12/27/20 20:00 98.1 F 76 16 125/75 95 12/27/20 17:11 98.2 F 87 16 124/71 93 L 12/27/20 15:43 74 16 111/63 96 12/27/20 15:10 77 16 122/69 96 12/27/20 14:13 75 16 114/54 95 12/27/20 13:40 73 16 133/77 94 L 12/27/20 13:28 79 20 106/65 96 12/27/20 13:13 75 20 152/74 95 12/27/20 12:55 98.1 F 81 20 164/86 97 12/27/20 12:30 69 16 138/63 94 L 12/27/20 12:15 81 16 143/62 95 12/27/20 12:00 76 16 147/67 98 12/27/20 11:45 85 16 154/78 98 12/27/20 11:31 97.2 F L 89 16 177/94 98 Intake and Output 12/27/20 12/28/20 12/28/20 22:59 06:59 14:59 Intake Total 1750 600 Output Total 590 670 Balance 1160 -70 Intake: Intake, IV Titration 1000 600 Amount Lactated Ringers 1,000 ml 1000 600 @ 125 mls/hr IV .Q8H ONE Rx#:[id number] Oral 750 Output: Drainage 40 20 Left lower abdomen 20 10 Right Lower Abdomen 20 10 Urine 550 650 Uretheral (Carr) 550 Other: Voiding Method Indwelling Catheter Indwelling Catheter Gen: This is a 55-year-old female awake, alert and oriented 3, well-developed, well-nourished, no acute distress. HEENT: Head is atraumatic, normocephalic. Pupils equal, round. Sclerae is anicteric. NECK: Supple. No JVD. No lymphadenopathy. No thyromegaly. LUNGS: Clear to auscultation. No wheezes or rhonchi. No intercostal retractions. HEART: Regular rate and rhythm. No murmur. ABDOMEN: Soft. Bowel sounds are absent. No masses. tenderness of the abdomen noted. Abdominal binder noted. EXTREMITIES: No pedal edema. No calf tenderness. NEUROLOGICAL: Patient is awake, alert and oriented x3. Cranial nerves 2 through 12 are grossly intact. Results CBC & Chem 7: 12/28/20 09:08 12/28/20 09:08 Assessment and Plan Assessment: Panniculus status post panniculectomy postop day #1 Hypertension History of osteoarthritis History of neuropathy with multiple back surgeries chronic back pain History of fatty liver History of multiple back surgeries Past medical history of gastric sleeve in 2019 Depression DVT prophylaxis: Subcutaneous Lovenox Full code Plan: Recommend continue with current medications. Patient is maintained on clear liquids and will continue until bowel activity. Advance diet as tolerated per surgery. Bowel sounds are minimal if that on exam and patient reports no passing gas and no bowel movement as of yet. Indwelling Carr catheter was removed and patient is due to void. Appropriate home medications have been resumed and will monitor blood pressure closely and blood pressure is within nor mal limits at this time. Encouraged increased activity as tolerated per the direction of surgery and continue with abdominal binder. Encourage incentive spirometer at least 10 times every hour while awake. CBC and BMP within normal limits and will continue to follow with surgery during hospitalization. Thank you for this consultation. Time with Patient: Greater than 30
--- NOTE | 2020-12-28 13:42 | P.DS ---
Providers Expected date of discharge: 12/28/20 Attending physician: Jered Bernal Consults: 12/27/20 11:32 Consult Physician Routine Consulting Provider: Jorge Jacome Consult Reason/Comments: med manage Do you want consulting provider notified?: Yes [facility] Course: Discharge diagnosis 1. Panniculus status post panniculectomy Hospital course This is a 55-year-old female with a well formed panniculus. She's had significant weight loss. She has had troubles with panniculitis. Patient is status post panniculectomy. Patient tolerated surgery well. Her pain is controlled. She's tolerating diet. She has been up and ambulating. She is urinating without difficulty. Afebrile. She is stable for discharge. Please for chart for any further details. Physician Transitions Manager note has been reviewed by physician. Signing provider agrees with the documented findings, assessment, and plan of care. Patient Condition at Discharge: Stable Plan - Discharge Summary Discharge Rx Participant: Yes New Discharge Prescriptions: Continue Pregabalin [Lyrica] 300 mg PO BID Morphine Sulfate [Ms Contin] 30 mg PO HS HYDROcodone/APAP 7.5-325MG [[place] 7.5-325] 1 tab PO BID PRN PRN Reason: Pain rOPINIRole HCL [Requip] 0.25 mg PO DAILY PRN PRN Reason: Pain QUEtiapine [SEROquel] 50 mg PO HS bisacodyL [Dulcolax] 5 mg PO DAILY PRN #10 tablet. PRN Reason: Constipation Discharge Medication List Pregabalin [Lyrica] 300 mg PO BID 05/30/16 [History] Morphine Sulfate [Ms Contin] 30 mg PO HS 05/08/17 [History] HYDROcodone/APAP 7.5-325MG [[place] 7.5-325] 1 tab PO BID PRN 09/15/18 [History] rOPINIRole HCL [Requip] 0.25 mg PO DAILY PRN 11/10/18 [History] QUEtiapine [SEROquel] 50 mg PO HS 08/16/19 [History] bisacodyL [Dulcolax] 5 mg PO DAILY PRN #10 tablet. 08/26/19 [Rx] Follow up Appointment(s)/Referral(s): Jered Bernal MD [STAFF PHYSICIAN] - 1 Week Patient Instructions/Handouts: *Surgery [facility] - Scopalamine Patch Instructions Activity/Diet/Wound Care/Special Instructions: No driving while taking Narcotics No lifting over 10 pounds You may shower. No soaking or tub baths for 2 weeks Very light activity until you are reevaluated at your follow up appointment with your surgeon Keep a log of VERNELL drain output and bring with you to your follow-up appointment Milk/strip drains 2-3 times a day Discharge Disposition: HOME SELF-CARE
[2020-12-28 14:50] VITALS: BP 142/84; PULSE 54; RESP 18; TEMP 98.4
== END 2020-12-28 16:02 | disposition home or self-care (01) ==
LOC: OR 07:47 → 6PED 11:52 → OR 12-28 16:02
PROVIDERS: ATTEND Surgery
DX: E65 Localized adiposity (principal); M79.3 Panniculitis, unspecified; M19.90 Unspecified osteoarthritis, unspecified site; G62.9 Polyneuropathy, unspecified; G89.29 Other chronic pain; M54.9 Dorsalgia, unspecified; K76.0 Fatty (change of) liver, not elsewhere classified; Z98.84 Bariatric surgery status; Z98.890 Other specified postprocedural states; Z80.8 Family history of malignant neoplasm of other organs or systems; Z79.899 Other long term (current) drug therapy; I10 Essential (primary) hypertension; Z71.82 Exercise counseling
CPT/HCPCS: 15830; 15847; 80048; 85025; J2250; J1644; J1100; J2710; J0690; J2405; J2001; J1650; J3010; J1885 ×2; J0330; J2704; J1170

== ENCOUNTER → 2021-01-09 | Outpatient (CLI) | payer MEDICARE ==
--- NOTE | 2021-01-09 13:07 | P.HPBAR ---
Bariatric H&P - History & Physicial H&P Date: 01/09/21 History & Physicial: Visit/CC: Patient initial contact: Initial weight: 107.104 kg Initial weight in pounds: Height: Initial BMI: Last weight: Current weight: Current weight in pounds: Current BMI: [place] body weight (based on NIH guidelines): Excess body weight loss: The patient is a 55 year-old F who presents for Bariatric Assessment. Patient presents today for bariatric follow-up. She had a recent panniculectomy. She's doing quite well. Her drains are producing less than 5 mL per day. Past Medical History Past Medical History: Osteoarthritis (OA) Additional Past Medical History / Comment(s): valerio neuropathy-post back surgery,CHRONIC BACK PAIN,fatty liver History of Any Multi-Drug Resistant Organisms: None Reported Past Surgical History: Adenoidectomy, Back Surgery, Bariatric Surgery, Orthopedic Surgery Additional Past Surgical History / Comment(s): BACK SURGERY X 5. UP3. [facility]. PAIN CLINIC PROCEDURES. 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 Patient's drains were removed. She'll follow-up in 2-3 weeks. Bariatric Checklist Checklist: Plan: Checklist: EGD: 1. Hiatal hernia: 2. H. Pylori: HgbA1c: Vitamin D: Smoking: Never smoker Primary care physician referral: crissy Psychiatry clearance: Cardiology clearance: Sleep study: Diet journal: VTE risk score: VTE risk level: Rehab needs at discharge:
[2021-01-09 13:11] VITALS: BP 140/99; PULSE 85; TEMP 99; BMI 27.9
== END ==
LOC: BARWHC3 09:04
PROVIDERS: ATTEND Surgery
DX: Z09 Encounter for follow-up examination after completed treatment for conditions other than malignant neoplasm (principal); Z98.84 Bariatric surgery status; M19.90 Unspecified osteoarthritis, unspecified site; F32.9 Major depressive disorder, single episode, unspecified
CPT/HCPCS: 99212

== ENCOUNTER → 2021-01-29 | Outpatient (CLI) | payer MEDICARE | LOC: BARWHC3 13:08 | PROVIDERS: ATTEND Surgery | DX: Z53.9 Procedure and treatment not carried out, unspecified reason (principal) ==

== ENCOUNTER → 2021-04-02 | Outpatient (CLI) | payer MEDICARE ==
[2021-04-02 14:22] VITALS: BP 161/80; PULSE 76; TEMP 98.4; BMI 27.2
--- NOTE | 2021-04-02 14:50 | P.HPBAR ---
Bariatric H&P - History & Physicial H&P Date: 04/02/21 History & Physicial: Visit/CC: antoinette follow up Patient initial contact: Initial weight: 107.104 kg Initial weight in pounds: 236.12 Height: 5 ft 8 in Initial BMI: 35.9 Last weight: Current weight: 81.193 kg Current weight in pounds: 179.00 Current BMI: 27.2 [place] body weight (based on NIH guidelines): 63.503 kg Excess body weight loss: 59.4% The patient is a 55 year-old F who presents for Bariatric Assessment. Patient presents today for repair to follow. She has some complaints of pain at her panniculectomy site. She's had some minimal GERD. Past Medical History Past Medical History: Osteoarthritis (OA) Additional Past Medical History / Comment(s): valerio neuropathy-post back surgery,CHRONIC BACK PAIN,fatty liver History of Any Multi-Drug Resistant Organisms: None Reported Past Surgical History: Adenoidectomy, Back Surgery, Bariatric Surgery, Orthopedic Surgery Additional Past Surgical History / Comment(s): BACK SURGERY X 5. UP3. [facility]. PAIN CLINIC PROCEDURES. Gastric Sleeve.08/25/19. 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 Past Psychological History: Depression Smoking Status: Never smoker Past Alcohol Use History: None Reported Past Drug Use History: None Reported - Past Family History Father Family Medical History: Cancer Additional Family Medical History / Comment(s): skin Mother Family Medical History: Cancer Additional Family Medical History / Comment(s): skin Surgical - Exam Vital Signs Temp Pulse BP 98.4 F 76 161/80 04/02/21 14:20 04/02/21 14:20 04/02/21 14:20 - General well developed, well nourished, no distress - Eyes PERRL - ENT normal pinna - Neck no masses - Respiratory normal expansion - Cardiovascular Rhythm: regular - Abdomen Abdomen: soft, non tender Bariatric Assessment & Plan Plan: Patient's GERD is minimal observed. Her weight loss is improving. Bariatric Checklist Checklist: Plan: Checklist: EGD: 1. Hiatal hernia: 2. H. Pylori: HgbA1c: Vitamin D: Smoking: Never smoker Primary care physician referral: crissy Psychiatry clearance: Cardiology clearance: Sleep study: Diet journal: VTE risk score: VTE risk level: Rehab needs at discharge:
== END ==
LOC: BARWHC3 14:01
PROVIDERS: ATTEND Surgery
DX: K21.9 Gastro-esophageal reflux disease without esophagitis (principal); M19.90 Unspecified osteoarthritis, unspecified site; F32.A Depression, unspecified; Z98.84 Bariatric surgery status; Z79.899 Other long term (current) drug therapy
CPT/HCPCS: 99211

== ENCOUNTER → 2021-08-14 | Outpatient (CLI) | payer MEDICARE ==
--- NOTE | 2021-08-14 11:48 | XR ---
Right hip HISTORY: Right hip pain 2 views the right hip Bone mineralization, joint spaces and alignment are maintained. IMPRESSION: Normal right hip
== END | disposition home or self-care (01) ==
LOC: RADXRYALE 08:56
PROVIDERS: ATTEND Physician Assistant Medical
DX: M25.551 Pain in right hip (principal)
CPT/HCPCS: 73502

== ENCOUNTER → 2022-01-29 | Outpatient (CLI) | payer MEDICARE ==
--- NOTE | 2022-01-29 14:18 | XR ---
EXAMINATION TYPE: XR chest 2V DATE OF EXAM: 01/29/2022 COMPARISON: NONE HISTORY: 56-year-old female complaining of heaviness and difficulty with breathing TECHNIQUE: Frontal and lateral views of the chest are obtained. FINDINGS: There is no focal air space opacity, pleural effusion, or pneumothorax seen. The cardiac silhouette size is within normal limits. The osseous structures are intact. IMPRESSION: No acute cardiopulmonary process.
== END | disposition home or self-care (01) ==
LOC: RADXRYALE 10:53
PROVIDERS: ATTEND Physician Assistant
DX: R05.9 Cough, unspecified (principal)
CPT/HCPCS: 71046

== ENCOUNTER 2022-03-09 17:52 | Emergency (ER) | payer SELFPAY ==
[2022-03-09 18:03] VITALS: TEMP 97.9
--- NOTE | 2022-03-09 18:10 | ED ---
General Adult HPI - General Chief complaint: Fall Stated complaint: R. Leg Injury Time Seen by Provider: 03/09/22 17:54 Source: patient, EMS, RN notes reviewed Mode of arrival: EMS Limitations: physical limitation - History of Present Illness Initial comments: Patient is a pleasant 56-year-old female presenting to the emergency department with concern for right knee pain. Patient was at work when she tripped on a rug and fell directly onto her right knee. Patient does have significant discomfort at the knee Since that time. No other area of injury or concern. Patient did receive no by EMS and discomfort is tolerable at this time. Patient states discomfort greatly increases with movement of the knee. No history of previous knee trauma. - Related Data Home Medications Medication Instructions Recorded Confirmed Pregabalin [Lyrica] 300 mg PO BID 05/30/16 04/02/21 Morphine Sulfate [Ms Contin] 30 mg PO HS 05/08/17 04/02/21 HYDROcodone/APAP 7.5-325MG [Sylvester 1 tab PO BID PRN 09/15/18 04/02/21 7.5-325] rOPINIRole HCL [Requip] 0.25 mg PO DAILY PRN 11/10/18 04/02/21 QUEtiapine [SEROquel] 50 mg PO HS 08/16/19 04/02/21 Previous Rx's Medication Instructions Recorded bisacodyL [Dulcolax] 5 mg PO DAILY PRN #10 tablet. 08/26/19 Allergies Allergy/AdvReac Type Severity Reaction Status Date / Time No Known Allergies Allergy Verified 04/02/21 14:41 Review of Systems ROS Statement: Those systems with pertinent positive or pertinent negative responses have been documented in the HPI. ROS Other: All systems not noted in ROS Statement are negative. Constitutional: Denies: fever Eyes: Denies: eye pain ENT: Denies: ear pain Respiratory: Denies: cough Cardiovascular: Denies: chest pain Endocrine: Denies: fatigue Gastrointestinal: Denies: abdominal pain Genitourinary: Denies: urgency Musculoskeletal: Reports: as per HPI. Denies: back pain Skin: Denies: rash Neurological: Denies: weakness Past Medical History Past Medical History: Osteoarthritis (OA) Additional Past Medical History / Comment(s): valerio neuropathy-post back surgery,CHRONIC BACK PAIN,fatty liver History of Any Multi-Drug Resistant Organisms: None Reported Past Surgical History: Adenoidectomy, Back Surgery, Bariatric Surgery, Orthopedic Surgery Additional Past Surgical History / Comment(s): BACK SURGERY X 5. UP3. [facility]. PAIN CLINIC PROCEDURES. Gastric Sleeve.08/25/19. 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 Absent: tenderness Respiratory exam: Present: normal lung sounds bilaterally Cardiovascular Exam: Present: regular rate, normal rhythm Expanded Peripheral pulses: 2+: Posterior Tibialis (R) GI/Abdominal exam: Present: soft. Absent: tenderness Extremities exam: Present: tenderness (Anterior knee and patella tenderness and swelling) Neurological exam: Present: alert. Absent: motor sensory deficit (Distally the extremity is neurovascularly intact.) Psychiatric exam: Present: normal affect, normal mood Skin exam: Present: normal color Course Vital Signs 03/09/22 17:56 Temperature 97.9 F Pulse Rate 68 Respiratory 18 Rate Blood Pressure 165/89 O2 Sat by Pulse 99 Oximetry Medical Decision Making - Medical Decision Making Was pt. sent in by a medical professional or institution (, PA, COMPOSITION STONE APPLICATOR, urgent care, hospital, or long-term...) When possible be specific @ -No Did you speak to anyone other than the patient for history (EMS, parent, family, police, friend...)? What history was obtained from this source @ -EMS help provide history of patient's injury Did you review nursing and triage notes (agree or disagree)? Why? @ -I reviewed and agree with nursing and triage notes Were old charts reviewed (outside hosp., previous admission, EMS record, old EKG, old radiological studies, urgent care reports/EKG's, long-term records)? Report findings @ -No old charts were reviewed Differential Diagnosis (chest pain, altered mental status, abdominal pain women, abdominal pain men, vaginal bleeding, weakness, fever, dyspnea, syncope, headache, dizziness, GI bleed, back pain, seizure, CVA, palpatations, mental health)? @ -Differential diagnosis is not limited to but includes the injuries, bony and soft tissue, vascular, cartilage, ligamentous and other. This is not an all inclusive list. EKG interpreted by me (3pts min.). @ -As above X-rays interpreted by me (1pt min.). @ -X-ray shows patellar fracture with dislocation, interpreted by myself CT interpreted by me (1pt min.). @ -None done U/S interpreted by me (1pt. min.). @ -None done What testing was considered but not performed or refused? (CT, X-rays, U/S, labs)? Why? @ -None What meds were considered but not given or refused? Why? @ -Patiently originally wanted to refuse pain medication however now is agreeable prior to discharge. Did you discuss the management of the patient with other professionals (professionals i.e. , PA, COMPOSITION STONE APPLICATOR, lab, RT, psych nurse, long term care social worker, ground intelligence officer, teacher, principal gifts officer, case finisher)? Give summary @ -No Was smoking cessation discussed for >3mins.? @ -No Was critical care preformed (if so, how long)? @ -No Were there social determinants of health that impacted care today? How? (Homelessness, low income, unemployed, alcoholism, drug addiction, transportation, low edu. Level, literacy, decrease access to med. care, penitentiary, rehab)? @ -No Was there de-escalation of care discussed even if they declined (Discuss DNR or withdrawal of care, Hospice)? DNR status @ -No What co-morbidities impacted this encounter? (DM, HTN, Smoking, COPD, CAD, Cancer, CVA, ARF, Chemo, Hep., AIDS, mental health diagnosis, sleep apnea, morbid obesity)? @ -None Was patient admitted / discharged? Hospital course, mention meds given and route, prescriptions, significant lab abnormalities, going to OR and other pertinent info. @ -Patient reevaluated and updated. Patient will receive knee immobilizer and close follow-up with orthopedics for further care. Undiagnosed new problem with uncertain prognosis? @ -No Drug Therapy requiring intensive monitoring for toxicity (Heparin, Nitro, Insulin, Cardizem)? @ -No Were any procedures done? @ -No Diagnosis/symptom? @ -Patellar fracture Acute, or Chronic, or Acute on Chronic? @ -Acute Uncomplicated (without systemic symptoms) or Complicated (systemic symptoms)? @ -default Side effects of treatment? @ -No Exacerbation, Progression, or Severe Exacerbation? @ -No Poses a threat to life or bodily function? How? (Chest pain, [place], MT, pneumonia, PE, COPD, DKA, ARF, appy, cholecystitis, CVA, Diverticulitis, Homicidal, Suicidal, threat to staff... and all critical care pts) @ -No Disposition Clinical Impression: Patella fracture Disposition: HOME SELF-CARE Condition: Stable Instructions (If sedation given, give patient instructions): Patellar Fracture (ED) Additional Instructions: Please do follow-up with orthopedics Friday. Limit weightbearing on the right leg until follow-up. Return for increased pain, swelling, worsening or change in symptoms or any other concerns. Ice affected area at least 6 times daily for 20 minutes each time. Is patient prescribed a controlled substance at d/c from ED?: No Referrals: Hiro Díaz DO [Primary Care Provider] - 1-2 days Willi Plata MD [STAFF PHYSICIAN] - 1-2 days Time of Disposition: 18:45
--- NOTE | 2022-03-09 18:26 | XR ---
EXAMINATION TYPE: XR knee complete RT DATE OF EXAM: 03/09/2022 COMPARISON: NONE HISTORY: Pain TECHNIQUE: 3 view FINDINGS: There is comminuted transverse fracture of the body of the patella. There is separation of the fragments more than 3 cm. The medial and lateral joint spaces are normal. The femur and tibia and fibula appear intact. IMPRESSION: Comminuted displaced patellar fracture.
[2022-03-09] MEDS ORDERED: HYDROmorphone 1 MG/ML 1 ML SYRINGE IM STA ×2 (18:45→21:01)
[2022-03-09 22:10] VITALS: BP 131/69; PULSE 60; RESP 16
== END 2022-03-09 21:49 | disposition home or self-care (01) ==
LOC: EC 17:52
DX: S82.001A Unspecified fracture of right patella, initial encounter for closed fracture (principal); M19.90 Unspecified osteoarthritis, unspecified site; F32.A Depression, unspecified; W22.8XXA Striking against or struck by other objects, initial encounter
CPT/HCPCS: 73562; 99284; 96372 ×2; J1170

== ENCOUNTER 2022-03-13 13:45 | Observation (INO) | payer OTHER ==
[2022-03-12 13:30] VITALS: BMI 28.5
[~2022-03-13 13:45] MED LIST changes: +DEXAMETHASONE SOD PHOSPHATE 4 MG/ML 1 ML VIAL IV ONE; -LACTATED RINGERS 1,000 ML IV SCH; -SCOPOLAMINE 1.5MG/72HR PATCH TRANSDERM ONE
[2022-03-13] MEDS ORDERED: SCOPOLAMINE 1 MG/72 HR PATCH TRANSDERM ONE (14:29)
[2022-03-13] MEDS: LACTATED RINGERS 1,000 ML IV SCH ×2 (14:29→20:45)
[2022-03-13] MEDS ORDERED: PROPOFOL 10 MG/ML 20 ML VIAL IV ONE (16:40)
[2022-03-13] MEDS ORDERED: WATER FOR INJECTION, STERILE 10 ML VIAL IV ONE (16:40)
[2022-03-13] MEDS ORDERED: HYDROmorphone (PF) 1 MG/ML ONE (16:40)
[2022-03-13] MEDS ORDERED: ePHEDrine 50 MG/ML 1 ML VIAL ONE (16:40)
[2022-03-13] MEDS ORDERED: MIDAZOLAM 2 MG/2 ML VIAL ONE (16:40)
[2022-03-13] MEDS ORDERED: LIDOCAINE 2% INJ 20 MG/ML (2 ML VIAL) ONE (16:40)
[2022-03-13] MEDS ORDERED: fentaNYL (PF) 50 MCG/ML 2 ML AMP ONE (16:40)
[2022-03-13] MEDS ORDERED: LACTATED RINGERS 1,000 ML IV ONE (17:36)
--- NOTE | 2022-03-13 18:33 | FL ---
Intraoperative/procedural fluoroscopic services were provided. Total fluoroscopy time is 1 seconds wi th a total of 1 submitted images to PACS. Please see the operative/procedural note for further detail s.
[2022-03-13] MEDS ORDERED: NALOXONE 0.4 MG/ML 1 ML VIAL IV PRN (18:46)
[2022-03-13] MEDS ORDERED: HYDROmorphone 0.5 MG/0.5 ML SYRINGE IVP PRN ×2 (18:46)
[2022-03-13] MEDS ORDERED: ONDANSETRON 4 MG/2 ML VIAL IVP PRN (18:46)
[2022-03-13] MEDS ORDERED: HYDROcodone/APAP 7.5-325MG 1 EACH TAB PO PRN ×2 (18:52→18:54)
--- NOTE | 2022-03-13 18:56 | P.OP ---
Date of Procedure: 03/13/22 Preoperative Diagnosis: 1. Right displaced patella fracture 2. Chronic left foot drop 3. Multiple lumbar spine surgeries 4. Chronic pain on Mcdowell and MS Contin at baseline Postoperative Diagnosis: Highly comminuted inferior pole patella fracture, otherwise same as preoperative diagnosis Procedure(s) Performed: Right knee partial patellectomy me and patellar tendon repair Anesthesia: JUAN F Surgeon: Arnold Carvalho Marker Machine #1: Pieter Layne Estimated Blood Loss (ml): 50 IV fluids (ml): 1,200 Pathology: none sent Condition: stable Disposition: PACU Indications for Procedure: The patient is a very pleasant 56-year-old female with a medical history significant for a left foot drop resulting from prior lumbar spine surgery and chronic pain on Mcdowell and MS Contin at baseline who sustained a work-related injury when she tripped and fell sustaining an isolated injury to her right knee. She was seen in the emergency department where x-rays were taken and she was found to have a displaced patella fracture. She was placed in a knee immobilizer and follow-up was arranged in my office. I met with the patient and her to discuss treatment of her displaced patella fracture. We discussed attempted open reduction and internal fixation either using cannulated screws or a multi hole patella plate. We also briefly discussed the possibility if the fracture was highly comminuted and her bone quality was poor to perform a partial patellectomy me and patellar tendon repair. Both the patient and her agreed to proceed with surgery to restore her extensor mechanism. We discussed the potential risks and Locations of surgery including but certainly not limited to risks from anesthesia, superficial infection, deep infection, delayed wound healing, superficial wound necrosis, damage to local blood vessels or nerves, nonunion, malunion, failure of repair, disruption of extensor mechanism, posttraumatic arthritis, stiffness, instability, and inability to regain preinjury level of function, DVT, PE, other medical complications, and possibly loss of life or limb. They also understand the potential for difficulty with postoperative pain control given her background of taking multiple narcotics at baseline. They provided both her verbal and written consent to go forward with surgery. Operative Findings: The patient was found to have a highly comminuted inferior pole patella fracture that was not amenable to fixation either with cannulated screws and cerclage wire or a specialized anterior multi hole patella plate. Due to the high comminution and poor bone quality decision was made to proceed with partial patellectomy and patellar tendon repair. Description of Procedure: The patient was identified in preoperative holding and the correct right leg was marked with my initials. I reviewed the consent form with the patient and her . All their questions were answered. The patient was then brought back to the operating room by anesthesia. She was positioned on the OR table where a general anesthetic, preoperative antibiotics, and tranexamic acid were given. A tourniquet was applied to the proximal aspect of the right leg but was not used during the entire procedure. A bump was placed under the right buttock internally rotating the leg to neutral. A ramp was placed under the leg to facilitate imaging. A nonsterile 10:15 drape was applied. The patient's leg was then cleansed with a chlorhexidine scrub brush for a pre-scrub. The right leg was then prepped and draped in the standard sterile fashion. Prior to starting surgery timeout was performed identifying the correct patient, operative extremity, and procedure. I outlined a standard anterior approach to the knee starting 2 fingerbreadths above the patella and extending distally to the tibial tubercle. Skin incision made with a scalpel. Dissection was carried down to the subcutaneous tissue to the first fascial layer. Immediately upon incising the first fascial layer there was a large owen of coagulated blood consistent with a displaced patella fracture. Subfascial flaps were elevated exposing the patella. There is a completely displaced fracture across the patella and disruption of the patellar retinaculum medially and laterally. On inspection of the proximal fragment it was intact with 1 large fragment. On close inspection of the distal fragment there was comminution with multiple small fracture fragments. The patient's bone quality was also noted to be poor. Given the patient's poor bone quality and multiple small fracture fragments I thought that her fracture pattern was not amenable to fixation and elected to proceed with a partial patellectomy and patellar tendon repair. The distal fragments of the patella were excised taking care to remove only bone and leaving all the patellar tendon tissue intact. Using nonabsorbable suture Krackow sutures were placed medially and laterally creating 4 strands for our repair. Using a 2.0 mm drill bit 3 equally spaced bone tunnels were made from distal to proximal across the patella using my gloved finger to verify that the drill was not violating the articular surface o f the patella. A Hewson tendon passer was used a shuttle an 0 Vicryl suture from proximal to distal and then a single strand of the 4 strand repair was shuttled through the most lateral hole from distal to proximal, 2 strands were passed in the central drill hole from distal to proximal, and a single strand was passed in the most medial bone tunnel. With the knee in extension all 4 strands were tied over the proximal aspect of the patella nicely reapproximating the patellar tendon to the bony bed at the inferior pole. The joint was thoroughly irrigated through the defect in the retinaculum medial and laterally. There was an excellent repair of the tendon back to bone. The retinaculum was then reinforced medially and laterally with interrupted 0 Vicryl sutures nicely reapproximating the retinacular defect. The knee was then closed in layers with 0 strata fix for the deep tissue, 2-0 strata fix for the subcutaneous tissue, a running 3-0 Monocryl subcuticular suture, and 3-0 nylon horizontal mattress sutures for the skin. A sterile dressing was applied followed by a web roll, Roger wrap, and knee immobilizer. The patient was then awoken from her anesthetic, transferred from the OR table to the [facility], and brought to recovery having tolerated the procedure well. Jocelynn SAXENA- was required to skilled assistant pastry chef for patient positioning, exposure, placement of sutures, closure of wound, application of dressing. Plan: The patient can weight-bear as tolerated on her right leg. She will need her knee in extension in either a knee immobilizer hinged knee brace for 4 weeks . At 4 weeks we will commence gentle range of motion. DVT prophylaxis with aspirin 81 mg twice a day. Pain control per the patient's pain doctor given her history. We'll plan for admission overnight for pain control and physical therapy given her right knee injury and left foot drop.
[2022-03-13] MEDS: HYDROmorphone 0.5 MG/0.5 ML SYRINGE IVP PRN ×4 (19:02→19:25)
[2022-03-13] MEDS: HYDROmorphone 1 MG/ML 1 ML SYRINGE IVP PRN ×2 (20:34→23:56)
[2022-03-13] MEDS ORDERED: SENNOSIDES-DOCUSATE SODIUM 1 EACH TAB PO SCH (21:00)
[2022-03-13] MEDS: HYDROcodone/APAP 7.5-325MG 1 EACH TAB PO PRN (21:42)
[2022-03-13] MEDS: ASPIRIN 81 MG PO SCH (21:42)
[2022-03-14] MEDS: HYDROmorphone 1 MG/ML 1 ML SYRINGE IVP PRN (03:28)
[2022-03-14] MEDS: LACTATED RINGERS 1,000 ML IV SCH ×2 (04:22)
[2022-03-14] MEDS: HYDROcodone/APAP 7.5-325MG 1 EACH TAB PO PRN ×2 (04:47→10:08)
[2022-03-14] MEDS: hydrOXYzine pamoate 25 MG CAP PO PRN ×2 (04:47→10:08)
[2022-03-14] MEDS: ASPIRIN 81 MG PO SCH (07:40)
[2022-03-14 07:59] VITALS: RESP 17
--- NOTE | 2022-03-14 08:53 | P.DS ---
Providers Date of admission: 03/14/22 08:12 Expected date of discharge: 03/14/22 Attending physician: Arnold Carvalho Consults: 03/13/22 18:50 Consult Physician Routine Consulting Provider: Lilliam Serrano Consult Reason/Comments: medical management Do you want consulting provider notified?: Yes Primary care physician: [facility] Course: This is a 56-year-old female who is admitted to [facility] following an injury to her right knee. Patient sustained a right displaced patella fracture and followed up with Dr. Carvalho in the office as an outpatient. Patient underwent a right knee partial patellectomy with patellar tendon repair on 03/13/22 Dr. Carvalho. The procedure was performed without complication or sequelae. The patient is doing fairly well postoperatively. Vital signs and labs are stable on postoperative day #1. Patient was examined bedside this morning with Dr. Carvalho. She states she is experiencing mild pain in the right knee, although it is well controlled at this time. She has a knee immobilizer in place of the right knee. She is comfortable discharging home today. She has no new complaints or concerns today of discharge. On examination, the patient is sitting up in bed. She is alert and oriented 3. On inspection of the right lower extremity, there is any immobilizer in place. The right foot is warm and well perfused. Motor and sensory function is intact of the right lower extremity. Patient is discharged home today, pending medical clearance today. Patient will follow-up in the office in 2 weeks at [facility]. Please see med rec for accurate list of discharge medication. Plan - Discharge Summary Discharge Rx Participant: Yes New Discharge Prescriptions: No Action Pregabalin [Lyrica] 300 mg PO BID Morphine Sulfate [Ms Contin] 30 mg PO HS HYDROcodone/APAP 7.5-325MG [Larwill 7.5-325] 2 tab PO Q4-6H PRN PRN Reason: Pain rOPINIRole HCL [Requip] 0.25 mg PO DAILY PRN PRN Reason: SPASMS, PAIN QUEtiapine [SEROquel] 50 mg PO HS amLODIPine [Norvasc] 5 mg PO BID Discharge Medication List Pregabalin [Lyrica] 300 mg PO BID 05/30/16 [History] Morphine Sulfate [Ms Contin] 30 mg PO HS 03/08/18 [History] HYDROcodone/APAP 7.5-325MG [[place] 7.5-325] 2 tab PO Q4-6H PRN 09/15/18 [History] rOPINIRole HCL [Requip] 0.25 mg PO DAILY PRN 11/10/18 [History] QUEtiapine [SEROquel] 50 mg PO HS 08/16/19 [History] amLODIPine [Norvasc] 5 mg PO BID 03/12/22 [History] Follow up Appointment(s)/Referral(s): Arnold Carvalho MD [Medical Doctor] - 2 Weeks Activity/Diet/Wound Care/Special Instructions: Weight bear to tolerance on operative extremity with a walker. Keep knee extended at all times, do not bend your knee. Keep knee brace on at all times besides hygiene. Keep operative dressing in place until follow-up in the office. May remove overlying RACHELL wrap after 48 hours post-op. Take pain medications as prescribed by your pain management doctor. Ice, elevate operative knee for swelling and pain control. Follow-up in the office in two weeks at [facility]. Call the office with any questions or concerns, Discharge Disposition: HOME SELF-CARE
[2022-03-14] MEDS ORDERED: MORPHINE SULFATE ER 30 MG TABLET PO SCH (09:00)
[2022-03-14] MEDS ORDERED: amLODIPine 5 MG TAB PO SCH (09:15)
[2022-03-14] MEDS ORDERED: PREGABALIN 100 MG CAP PO SCH (10:15)
[2022-03-14 10:41] LABS: Basophils # (A) 0.02 X 10*3/uL (0.00-0.10); Basophils % (A) 0.1 %; Eosinophils # (A) 0 X 10*3/uL (0.04-0.35); Eosinophils % (A) 0 %; HCT 32.2 % (37.2-46.3); HGB 10.4 g/dL (12.0-15.0); Immature Grans, Automated 0.4 %; Lymphocytes % (A) 10.9 %; MCH 28.3 pg (27.0-32.0); MCHC 32.3 g/dL (32.0-37.0); MCV 87.5 fL (80.0-97.0); Mean Platelet Volume 10.5 fL (9.5-12.2); Monocytes # (A) 0.66 X 10*3/uL (0.20-1.00); Monocytes % (A) 4.8 %; NRBC Per 100 WBC 0 /100 WBCS (0.0-0.0); Neutrophils # (A) 11.55 X 10*3/uL (1.80-7.70); Neutrophils % (A) 83.8 %; Platelet Count 262 X 10*3/uL (140-440); RBC 3.68 X 10*6/uL (4.10-5.20); RDW 13.4 % (11.5-14.5); WBC 13.79 X 10*3/uL (4.50-10.00)
--- NOTE | 2022-03-14 11:30 | P.CONS ---
History of Present Illness - Reason for Consult Consult date: 03/14/22 Medical Management Requesting physician: Arnold Carvalho - History of Present Illness Sound physician team was notified of consult at 8:15 AM on 03/14/22 as an initial consult was placed under different physician. History of Presenting Illness: Patient is a very pleasant 56-year-old female with a past medical history of hypertension, neuropathy, chronic back pain with previous lumbar surgeries and chronic left foot drop, depression and anxiety. She is currently admitted under orthopedic surgery team and is status post right knee partial patelleectomy and patellar tendon repair secondary to a right displaced patellar fracture. We have been consulted for medical management throughout patient's hospitalization. Patient seen and fully evaluated at bedside this morning. She was sitting upright in chair. Patient was tearful and upset that home medication Lyrica was not ordered. Patient reports postoperative pain is currently managed however she is having increased neuropathy secondary to missing medications. Patient assured that home medication will be reordered at this time. Patient denies having any other complaints including headache, lightheadedness, dizziness, chest pain, palpitations, shortness of breath, nausea, vomiting, or any other complaints. Morning labs reviewed and stable with hemoglobin of 10.4. Review of systems: Pertinent positives and negatives as discussed in HPI, a complete review of systems was performed and all other systems are negative. Physical exam: Vital signs reviewed and stable. General: Nontoxic, no distress and appears stated age. Derm: Skin warm and dry, normal coloration for ethnicity. Head: Atraumatic, normocephalic and symmetric. Eyes: EOMs intact, no lid lag, and anicteric sclera Mouth: no lip lesions, mucus membranes moist Cardiovascular: regular rate and rhythm with normal S1S2, no murmur, positive posterior tibial pulses bilaterally, and cap refill < 2 seconds. Lungs: Respirations even, regular, and unlabored on room air. Lungs CTA bilaterally, no rhonchi, no rales, no wheezing, and no accessory muscle usage. Abdominal: soft, nontender to palpation, no guarding, no appreciable organomegaly Ext: ROM intact. No gross muscle atrophy, no edema, no contractures Neuro: Speech clear, face symmetrical and CN II-XII grossly intact with no noted focal neuro deficits Psych: Alert and oriented to person, place, time, and situation. Appropriate and pleasant affect. Assessment and Plan of Care: Status post right knee partial patelleectomy and patellar tendon repair secondary to a right displaced patellar fracture. -Management per primary admitting orthopedic surgery team including DVT p rophylaxis, pain management, weightbearing, and PT/OT. -Patient currently on DVT prophylaxis with aspirin. Uncontrolled neuropathic pain -Patient reported missing doses of medication, Lyrica. At this time patient to resume Lyrica 300 mg twice daily along with Requip 0.25 mg daily as needed. Acute postoperative blood loss anemia, expected finding. Hemoglobin stable at 10.4 with preoperative hemoglobin of 12.4. No need for transfusion, no active bleeding, no need for follow-up labs. Recommend patient continue outpatient yearly screening labs and as needed. Leukocytosis Reactive, no signs of infection. No need for further intervention at this time. Hypertension Morning vital signs stable with blood pressure 139/77, no medication changes needed at this time patient to continue with amlodipine 5 mg twice a day. Thank you for allowing us to participate in the care of this pleasant patient. Do not hesitate to contact us with questions. Someone can be reached from the [facility] hospitalist group all hours of the day at [phone] or via [email or web address]. Patient is medically stable from medical perspective for discharge at this time, may proceed with discharge per primary admitting orthopedic surgery team and recommend patient following up outpatient with orthopedic surgery as recommended as well as with her PCP for yearly medical management and continued close monitoring/management of hypertension. I reviewed the documentation as provided by the MOSES above, who is the original author of this note. I agree with the documented assessment and plan, with the following changes: none Past Medical History Past Medical History: Asthma, Hypertension, Osteoarthritis (OA) Additional Past Medical History / Comment(s): valerio neuropathy-post back surgery,CHRONIC BACK PAIN,fatty liver, POSSIBLE HEART MURMUR, [place] INDUCED ASTHMA,GLAUCOMA-HAD SURGERY History of Any Multi-Drug Resistant Organisms: None Reported Past Surgical History: Adenoidectomy, Back Surgery, Bariatric Surgery, Orthopedic Surgery Additional Past Surgical History / Comment(s): BACK SURGERY X 5. UP3. CTR-VALERIO WRIST. PAIN CLINIC PROCEDURES. Gastric Sleeve.08/25/19. 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 Past Psychological History: Depression Smoking Status: Never smoker Past Alcohol Use History: None Reported Past Drug Use History: None Reported - Past Family History Father Family Medical History: Cancer Additional Family Medical History / Comment(s): skin Mother Family Medical History: Cancer Additional Family Medical History / Comment(s): skin Medications and Allergies Home Medications Medication Instructions Recorded Confirmed Type Pregabalin [Lyrica] 300 mg PO BID 05/30/16 03/13/22 History Morphine Sulfate [Ms Contin] 30 mg PO HS 05/08/17 03/13/22 History HYDROcodone/APAP 7.5-325MG [[place] 2 tab PO Q4-6H PRN 09/15/18 03/13/22 History 7.5-325] rOPINIRole HCL [Requip] 0.25 mg PO DAILY PRN 11/10/18 03/13/22 History QUEtiapine [SEROquel] 50 mg PO HS 08/16/19 03/13/22 History amLODIPine [Norvasc] 5 mg PO BID 03/12/22 03/13/22 History Aspirin 81 mg PO BID 30 Days #60 tab 03/14/22 Rx Docusate [Colace] 100 mg PO BID #60 capsule 03/14/22 Rx Allergies Allergy/AdvReac Type Severity Reaction Status Date / Time No Known Allergies Allergy Verified 03/13/22 14:01 Physical Exam Osteopathic Statement: *. No significant issues noted on an osteopathic structural exam other than those noted in the History and Physical/Consult. Vitals: Vital Signs Temp Pulse Pulse Resp BP BP Pulse Ox 03/14/22 07:59 98.4 F 65 17 139/77 99 03/14/22 02:00 98.5 F 62 18 120/65 94 L 03/13/22 22:05 79 129/79 92 L 03/13/22 21:51 60 116/63 91 L 03/13/22 21:35 80 132/62 94 L 03/13/22 21:20 84 125/79 92 L 03/13/22 21:05 85 137/72 97 03/13/22 20:50 84 128/47 95 03/13/22 20:35 60 143/73 96 03/13/22 20:00 97.4 F L 75 18 141/66 98 03/13/22 19:55 87 16 158/75 98 03/13/22 19:40 86 16 162/74 99 03/13/22 19:25 86 18 168/77 96 03/13/22 19:10 95 20 185/80 97 03/13/22 18:55 97.2 F L 98 16 185/101 93 L 03/13/22 14:07 96.4 F L 71 16 113/56 95 Intake and Output 03/13/22 03/14/22 03/14/22 22:59 06:59 14:59 Intake Total 1550 1000 Output Total 50 Balance 1500 1000 Intake: IV 1550 Intake, IV Titration 1000 Amount Lactated Ringers 1,000 ml 1000 @ 100 mls/hr IV .Q10H ZAFAR Rx#:[id number] Output: Estimated Blood Loss 50 Other: # Voids 2 Weight 84.2 kg Results CBC & Chem 7: 03/14/22 07:21
[2022-03-14 14:00] VITALS: BP 127/70; PULSE 60; TEMP 98.3
[2022-03-14] MEDS ORDERED: QUEtiapine 50 MG TAB PO SCH (21:00)
== END 2022-03-14 16:36 | disposition home or self-care (01) ==
LOC: OR 13:45 → 4SSUR 18:32 → OR 03-14 08:12
PROVIDERS: ADMIT Orthopaedic Surgery; ATTEND Orthopaedic Surgery
DX: S82.041A Displaced comminuted fracture of right patella, initial encounter for closed fracture (principal); W01.0XXA Fall on same level from slipping, tripping and stumbling without subsequent striking against object, initial encounter; M21.371 Foot drop, right foot; G89.29 Other chronic pain; I10 Essential (primary) hypertension; G62.9 Polyneuropathy, unspecified; F32.A Depression, unspecified; F41.9 Anxiety disorder, unspecified; J45.990 Exercise induced bronchospasm; I77.6 Arteritis, unspecified; Z82.49 Family history of ischemic heart disease and other diseases of the circulatory system; Z98.84 Bariatric surgery status; Z98.890 Other specified postprocedural states; Z79.891 Long term (current) use of opiate analgesic; Z79.899 Other long term (current) drug therapy
CPT/HCPCS: 94760; 97162; 85025; 73560; 27350; G0378; J2250; J1100; J0690 ×2; J2405; J3010; J1170 ×4; J2704; J2001

== ENCOUNTER → 2022-07-17 | Outpatient (CLI) | payer MEDICARE ==
--- NOTE | 2022-07-17 16:04 | BD ---
EXAMINATION TYPE: Axial Bone Density DATE OF EXAM: 07/17/2022 CLINICAL HISTORY: 56 years old Female. ICD-10 CODE: M85.9 DISORDER OF BONE DENSITY Height: 67in Weight: 195lb FRAX RISK QUESTIONS: History of Fracture in Adulthood: yes Secondary Osteoporosis: RISK FACTORS HISTORY OF: Surgery to Spine: yes, L4-L5 fusion When: 2004 Family History of Osteoporosis: yes Active: yes Postmenopausal woman: yes MEDICATIONS: Additional Medications: bp meds, cholesterol meds, vitamin d Additional History: knee fx 2022, lumbar fusion 2004 EXAM MEASUREMENTS: Bone mineral densitometry was performed using the HereOrThere System. Bone mineral density about the R hip (g/cm2): 0.934 Bone mineral density about the L hip (g/cm2): 0.967 T Score values are as follows: -----R Neck: -0.6 -----L Neck: -0.8 -----R Total: -0.6 -----L Total: -0.3 Z Score values are as follows: -----R Neck: 0.0 -----L Neck: -0.2 -----R Total: -0.3 -----L Total: -0.1 First dexa at [facility] Bone mineral density about the L Wrist (g/cm2): 0.586 T Score values are as follows: -----Dist. R+U: -2.4 -----Prox. R+U: -1.4 -----Radius total: -1.5 Z Score values are as follows: -----Dist. R+U: -1.8 -----Prox. R+U: -0.7 -----Radius total: -0.7 FRAX%s: The graph provided illustrates a 10.7% chance for a major osteoporotic fx and a 0.5% chance f or the hips probability for fx in 10 years time. IMPRESSION: Osteopenia (T Score between -2.5 and -1). There is slightly increased risk of fracture and the patient may be considered for treatment. Re-Screen 2-5 years. NOTE: T-SCORE=SD OF THE YOUNG ADULT MEAN.
== END | disposition home or self-care (01) ==
LOC: RADBDWWP 13:18
PROVIDERS: ATTEND Family Medicine
DX: M85.89 Other specified disorders of bone density and structure, multiple sites (principal); Z78.0 Asymptomatic menopausal state
CPT/HCPCS: 77080

== ENCOUNTER → 2022-07-22 | Outpatient (CLI) | payer MEDICARE ==
--- NOTE | 2022-07-22 13:31 | P.PAINPG ---
PQRS Measure Charge Sheet Comment: HISTORY OF PRESENT ILLNESS: 56 yr old female as a referral from Dr Russell presents today w severe and chronic LBP secondary to post laminectomy syndrome for evaluation. Pt states pain level is provoked at 8 /10 in intensity, constant, localized in the mid to lower lumbar spine, achy, sharp in character w shooting pain towards the BL feet. Pain is provoked by bending, lifting. Pain is alleviated minimally by medications ([place], Lyrica, MS Contin), LESIs in the past, use of a hot tub, repositioning and rest. PMH: Asthma, HTN, OA, MDD PSH: Adenoidectomy, Lumbar Surgery x5, Gastric Sleeve (2019), Panniculectomy (2020), BL CTR, LESIs, SH: Negative x3 FH: Fa- Skin CA. Mo- Skin CA. All: NKDA Meds: See list REVIEW OF ORGAN SYSTEMS: CONSTITUTIONAL: No fevers or chills. No recent weight loss. NEUROLOGICAL: + numbness and tingling along the distal extremities. No seizure disorders or headaches. MUSCULOSKELETAL: + pain PSYCHIATRIC: Denies current depression or suicidal thoughts. Physical Examinations : Constitutional : Cooperative , not in acute distress . Neurologic : Cranial nerve II to XII intact. No focal neurological deficits. Psychiatric : alert & oriented x 3. Matching mood & appropriate affect. Judgment & insight intact. Musculoskeletal : Cervical Spine Motor strength in the deltoid and biceps: Normal right side. Normal Left side Motor strength biceps and the wrist extensors: Normal right side . Normal left side Motor strength in the triceps muscle: Normal right side. Normal left side Deep tendon reflexes: Normal at the biceps. Normal at Brachioradialis. Normal at triceps Vertebral body tenderness to deep palpation over Cervical facet loading test: positive bilaterally Spurling test: positive bilaterally Neck distraction test: positive bilaterally Magalys sign: positive bilaterally Lumbar spine Motor strength lower extremities ,thigh and legs 5/5 Right side , 5/5 Left side Deep tendon reflexes : Normal Knee Jerk. Normal Ankle Jerk Vertebral body tenderness over L3, L4, L5 + Berger Test positive Lumbar facet Loading Test: positive Right / positive Left Range of motion of the lumbar spine Flexion 30 degrees, extension 10 degrees Straight Leg Raise test: Left/ Right positive at degree Nicki test: positive right / positive left. Severe tenderness over the Sacroiliac joint on the Right / Left sides Gaenslen test: positive bilaterally Seated flexion test: positive bilaterally. Sacral spine : Severe tenderness over the Sacroiliac joint: right side / left side Range of motion: Flexion of the lumbar spine <60 degrees Range of motion: Extension of the lumbar spine <20 degrees Gaenslen's Test positive Yunior's Test positive Nicki test: positive right side / left side Thigh Thrust Test Sacral Thrust Test Imaging: MRI non contrast the lumbar spine from 08/20/18 reviewed Assessment/ Plan : Lumbar spondylosis, Post Laminectomy Syndrome Recommendation of Behavioral Health eval for SCS Trial Dx: G89.4, M54.16. Video viewed. Need recent MRI and notified pt whom stated she will provide. Risks, benefits of procedure discussed and patient verbalized understanding. Admits to aspirin or anti- coagulant use or medical history of diabetes. Protocol for discontinuation/ continuation of medications mesfin procedure discussed. Minimal anesthesia provided, if clinically indicated, consisting of Versed and Fentanyl. All questions answered. I have spent greater than 30 minutes on patient care today. Dr Galvan was available by phone for the evaluation of this patient. The time was used to review the medical records including relevant urine studies and Prescription history (MAPs), review of the available imaging, evaluation and examination of the patient, coordination of care with the medical staff and if applicable referring physicians, as well as creation of the medical record PQRS Narrative: Smoking Status Never smoker Hx Alcohol Use (MH) No Home Medications: Ambulatory Orders Pregabalin [Lyrica] 300 mg PO BID 05/30/16 Morphine Sulfate [Ms Contin] 30 mg PO HS 05/08/17 HYDROcodone/APAP 7.5-325MG [[place] 7.5-325] 2 tab PO Q4-6H PRN 09/15/18 rOPINIRole HCL [Requip] 0.25 mg PO DAILY PRN 11/10/18 QUEtiapine [SEROquel] 50 mg PO HS 08/16/19 amLODIPine [Norvasc] 5 mg PO BID 03/12/22 Aspirin 81 mg PO BID 30 Days #60 tab 03/14/22 Docusate [Colace] 100 mg PO BID #60 capsule 03/14/22 Controlled Substance Measures - Controlled Substance Measures Is patient prescribed a controlled substance at discharge?: No
[2022-07-22 13:35] VITALS: BP 136/63; PULSE 74; RESP 18; TEMP 98.3
== END ==
LOC: PNWHC3 10:16
PROVIDERS: ATTEND Specialist
DX: M47.26 Other spondylosis with radiculopathy, lumbar region (principal); M96.1 Postlaminectomy syndrome, not elsewhere classified; J45.909 Unspecified asthma, uncomplicated; M19.90 Unspecified osteoarthritis, unspecified site; I10 Essential (primary) hypertension; F32.9 Major depressive disorder, single episode, unspecified; Z79.82 Long term (current) use of aspirin
CPT/HCPCS: 99211

== ENCOUNTER 2022-07-26 20:47 | Inpatient (IN) | payer MEDICARE ==
[2022-07-26] MEDS ORDERED: HYDROmorphone 1 MG/ML 1 ML SYRINGE IVP STA ×2 (21:20→23:38)
--- NOTE | 2022-07-26 21:26 | ED ---
Fall HPI - General Chief Complaint: Fall Stated Complaint: Fall, L Leg Injury Time Seen by Provider: 07/26/22 21:01 Source: patient, EMS, RN notes reviewed, old records reviewed Mode of arrival: EMS - History of Present Illness Initial Comments: This is a 56-year-old female to the ER status post fall. Patient of fall off a 0 turn lawnmower. Patient does have significant pain in the left knee with history of right knee surgery. Patient does follow-up with Dr. Carvalho. 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 Fall Witnessed: no Place Fall Occurred: home Loss of Consciousness: none Prolonged Down Time?: yes Symptoms Prior to Fall: none Location: head Location - Extremities: Left: Knee Severity: severe Severity scale (1-10): 8 Quality: sharp Context: tripped/slipped Associated Symptoms: denies - Related Data Home Medications Medication Instructions Recorded Confirmed Morphine Sulfate [Ms Contin] 30 mg PO HS 05/08/17 07/27/22 HYDROcodone/APAP 7.5-325MG [[place] 1 tab PO Q6H PRN 09/15/18 07/27/22 7.5-325] rOPINIRole HCL [Requip] 0.25 - 0.5 mg PO HS PRN 11/10/18 07/27/22 QUEtiapine [SEROquel] 50 mg PO HS 08/16/19 07/27/22 amLODIPine [Norvasc] 5 mg PO BID 03/12/22 07/27/22 DULoxetine HCL [Cymbalta] 60 mg PO DAILY 07/27/22 07/27/22 Pregabalin [Lyrica] 300 mg PO Q12H 07/27/22 07/27/22 Rosuvastatin Calcium [Crestor] 40 mg PO HS 07/27/22 07/27/22 Previous Rx's Medication Instructions Recorded Aspirin 81 mg PO BID 30 Days #60 tab 07/28/22 Docusate [Colace] 100 mg PO BID #60 capsule 07/28/22 Sulfamethox-Tmp 800-160Mg [Bactrim 1 tab PO Q12HR 10 Days #20 tab 07/28/22 DS 800-160 mg] oxyCODONE HCL/ACETAMINOPHEN 1 tab PO Q6HR PRN #15 tab 07/28/22 [Percocet 5-325 mg] Allergies Allergy/AdvReac Type Severity Reaction Status Date / Time No Known Allergies Allergy Verified 07/27/22 14:50 Review of Systems ROS Statement: Those systems with pertinent positive or pertinent negative responses have been documented in the HPI. ROS Other: All systems not noted in ROS Statement are negative. Past Medical History Past Medical History: Asthma, Hypertension, Osteoarthritis (OA) Additional Past Medical History / Comment(s): valerio neuropathy-post back surgery,CHRONIC BACK PAIN,fatty liver, POSSIBLE HEART MURMUR, [place] INDUCED ASTHMA,GLAUCOMA-HAD SURGERY History of Any Multi-Drug Resistant Organisms: None Reported Past Surgical History: Adenoidectomy, Back Surgery, Bariatric Surgery, Orthopedic Surgery Additional Past Surgical History / Comment(s): BACK SURGERY X 5. UP3. CTR-VALERIO WRIST. PAIN CLINIC PROCEDURES. Gastric Sleeve.08/25/19. 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 Past Psychological History: Depression Smoking Status: Never smoker Past Alcohol Use History: None Reported Past Drug Use History: None Reported - Past Family History Father Family Medical History: Cancer Additional Family Medical History / Comment(s): skin Mother Family Medical History: Cancer Additional Family Medical History / Comment(s): skin General Exam - General Exam Comments Initial Comments: Patient is placed in knee immobilizer does have good pulses left foot Limitations: no limitations General appearance: alert, in no apparent distress Head exam: Present: atraumatic, normocephalic, normal inspection Eye exam: Present: normal appearance, PERRL, EOMI. Absent: scleral icterus, conjunctival injection, periorbital swelling ENT exam: Present: normal exam, mucous membranes moist Neck exam: Present: normal inspection. Absent: tenderness, meningismus, lymphadenopathy Respiratory exam: Present: normal lung sounds bilaterally. Absent: respiratory distress, wheezes, rales, rhonchi, stridor Cardiovascular Exam: Present: regular rate, normal rhythm, normal heart sounds. Absent: systolic murmur, diastolic murmur, rubs, gallop, clicks GI/Abdominal exam: Present: soft, normal bowel sounds. Absent: distended, tenderness, guarding, rebound, rigid Extremities exam: Present: tenderness, normal capillary refill, other (Left knee deformity). Absent: full ROM, pedal edema, joint swelling, calf tenderness Back exam: Present: normal inspection Neurological exam: Present: alert, oriented X3, CN II-XII intact Psychiatric exam: Present: normal affect, normal mood Skin exam: Present: warm, dry, intact, normal color. Absent: rash Course Vital Signs 07/26/22 07/26/22 07/27/22 21:14 23:42 01:39 Temperature 98.3 F 97.6 F 98.0 F Pulse Rate 76 73 73 Respiratory 18 16 22 Rate Blood Pressure 124/68 156/89 118/67 O2 Sat by Pulse 98 97 95 Oximetry - Reevaluation(s) Reevaluation #1: 07/26/22 23:10 Medical record is reviewed Reevaluation #2: 07/26/22 23:10 patient has pain control Reevaluation #3: 07/26/22 23:10 Patient informed results questions have been answered Reevaluation #4: 07/26/22 23:08 Was pt. sent in by a medical professional or institution? @ -no Did you speak to anyone other than the patient for history? @ -no Did you review nursing and triage notes? @ -agree Were old charts reviewed? @ -no Differential Diagnosis? @ -prior EKG interpreted by me (3pts min.)? @ -yes X-rays interpreted by me (1pt min.)? @ -yes CT interpreted by me (1pt min.)? @ -no U/S interpreted by me (1pt. min.)? @ -no What testing was considered but not performed? (CT, X-rays, U/S, labs)? Why? @ -no What meds were considered but not given? Why? @ -no Did you discuss the management of the patient with other professionals? @ -no Did you reconcile home meds? @ -no Was smoking cessation discussed for >3mins.? @ -no Was critical care preformed (if so, how long)? @ -no Were there social determinants of health that impacted care today? How? (Homelessness, low income, unemployed, alcoholism, drug addiction, transportation, low edu. Level, literacy, decrease access to med. care, nursing home, rehab)? @ -no Was there de-escalation of care discussed even if they declined? (Discuss DNR or withdrawal of care, Hospice)? @ -no What co-morbidities impacted this encounter? (DM, HTN, Smoking, COPD, CAD, Cancer, CVA, Hep., AIDS, mental health diagnosis, sleep apnea, morbid obesity)? @ -none Was patient admitted / discharged? @ -56 female to the emergency department after fall patient does have fracture of the left knee will admit for surgical evaluation and treatment Admitted Undiagnosed new problem with uncertain prognosis? @ -no Drug Therapy requiring intensive monitoring for toxicity (Heparin, Nitro, Insulin, Cardizem)? @ -no Were any procedures done? @ -Gas placement of knee immobilizer and splint Diagnosis/symptom? @ -Left knee fracture, fall Acute, or Chronic, or Acute on Chronic? @ -Acute Uncomplicated (without systemic symptoms) or Complicated (systemic symptoms)? @ -complicated Side effects of treatment? @ -no Exacerbation, Progression, or Severe Exacerbation] @ -no Poses a threat to life or bodily function? @ -yes threat to lab with possible formation of compartment syndrome - Consultations Consultation #1: Spoke with Dr. Carvalho who will accept the patient has admission, patient placed in knee immobilizer Medical Decision Making - Medical Decision Making 56 female fall with left tibial plateau fracture placed in knee immobilizer and will be admitted for surgical evaluation and treatment - Lab Data Result diagrams: 07/26/22 23:38 07/26/22 23:38 Lab Results 07/26/22 07/26/22 07/26/22 Range/Units 23:38 23:38 23:38 WBC 7.7 (3.8-10.6) k/uL RBC 4.48 (3.80-5.40) m/uL Hgb 12.7 (11.4-16.0) gm/dL Hct 38.4 (34.0-46.0) % MCV 85.8 (80.0-100.0) fL MCH 28.2 (25.0-35.0) pg MCHC 32.9 (31.0-37.0) g/dL RDW 14.9 (11.5-15.5) % Plt Count 303 (150-450) k/uL MPV 7.2 Neutrophils % 74 % Lymphocytes % 15 % Monocytes % 5 % Eosinophils % 3 % Basophils % 1 % Neutrophils # 5.7 (1.3-7.7) k/uL Lymphocytes # 1.2 (1.0-4.8) k/uL Monocytes # 0.4 (0-1.0) k/uL Eosinophils # 0.2 (0-0.7) k/uL Basophils # 0.1 (0-0.2) k/uL PT 9.8 (9.0-12.0) sec INR 0.9 (<1.2) APTT 25.3 (22.0-30.0) sec Sodium 143 (137-145) mmol/L Potassium 4.1 (3.5-5.1) mmol/L Chloride 103 (98-107) mmol/L Carbon Dioxide 27 (22-30) mmol/L Anion Gap 13 mmol/L BUN 18 H (7-17) mg/dL Creatinine 0.85 (0.52-1.04) mg/dL Est GFR (CKD-EPI)AfAm 88 (>60 ml/min/1.73 sqM) Est GFR (CKD-EPI)NonAf 77 (>60 ml/min/1.73 sqM) Glucose 99 (74-99) mg/dL Plasma Lactic Acid Sang (0.7-2.0) mmol/L Calcium 9.2 (8.4-10.2) mg/dL Phosphorus 4.7 H (2.5-4.5) mg/dL Magnesium 2.6 H (1.6-2.3) mg/dL Total Bilirubin 0.6 (0.2-1.3) mg/dL AST 45 H (14-36) U/L ALT 25 (4-34) U/L Alkaline Phosphatase 94 (38-126) U/L Troponin I (0.000-0.034) ng/mL Total Protein 9.1 H (6.3-8.2) g/dL Albumin 5.0 (3.5-5.0) g/dL 07/26/22 07/26/22 Range/Units 23:38 23:38 WBC (3.8-10.6) k/uL RBC (3.80-5.40) m/uL Hgb (11.4-16.0) gm/dL Hct (34.0-46.0) % MCV (80.0-100.0) fL MCH (25.0-35.0) pg MCHC (31.0-37.0) g/dL RDW (11.5-15.5) % Plt Count (150-450) k/uL MPV Neutrophils % % Lymphocytes % % Monocytes % % Eosinophils % % Basophils % % Neutrophils # (1.3-7.7) k/uL Lymphocytes # (1.0-4.8) k/uL Monocytes # (0-1.0) k/uL Eosinophils # (0-0.7) k/uL Basophils # (0-0.2) k/uL PT (9.0-12.0) sec INR (<1.2) APTT (22.0-30.0) sec Sodium (137-145) mmol/L Potassium (3.5-5.1) mmol/L Chloride (98-107) mmol/L Carbon Dioxide (22-30) mmol/L Anion Gap mmol/L BUN (7-17) mg/dL Creatinine (0.52-1.04) mg/dL Est GFR (CKD-EPI)AfAm (>60 ml/min/1.73 sqM) Est GFR (CKD-EPI)NonAf (>60 ml/min/1.73 sqM) Glucose (74-99) mg/dL Plasma Lactic Acid Sang 1.0 (0.7-2.0) mmol/L Calcium (8.4-10.2) mg/dL Phosphorus (2.5-4.5) mg/dL Magnesium (1.6-2.3) mg/dL Total Bilirubin (0.2-1.3) mg/dL AST (14-36) U/L ALT (4-34) U/L Alkaline Phosphatase (38-126) U/L Troponin I <0.012 (0.000-0.034) ng/mL Total Protein (6.3-8.2) g/dL Albumin (3.5-5.0) g/dL - EKG Data -: EKG Interpreted by Me (EKG is sinus 75 CO 189 QRS 94 QTC 414) - Radiology Data Radiology results: report reviewed (X-ray left knee is positive for lateral tibial plateau fracture), image reviewed Disposition Clinical Impression: Fall, Fracture of left tibial plateau Disposition: ADMITTED IP TO THIS HOSP Condition: Serious Is patient prescribed a controlled substance at d/c from ED?: No Time of Disposition: 23:00
--- NOTE | 2022-07-26 21:45 | XR ---
EXAMINATION TYPE: XR knee complete LT DATE OF EXAM: 07/26/2022 COMPARISON: None HISTORY: Fall, pain TECHNIQUE: 3 view left knee FINDINGS: Moderate joint effusion is present. There is a longitudinal fracture through the lateral ti bial plateau with displacement of the fracture fragment. An additional longitudinal fracture extends into the metadiaphysis of the mid tibia. IMPRESSION: 1. Lateral tibial plateau fracture with inferior displacement estimated at 2.2 cm.
[2022-07-26] MEDS ORDERED: SODIUM CHLORIDE 0.9% 500 ML 500 ML IV STA (23:04)
[2022-07-26] MEDS ORDERED: SODIUM CHLORIDE 0.9% 1,000 ML IV STA (23:04)
[2022-07-26] MEDS ORDERED: ONDANSETRON 4 MG/2 ML VIAL IVP STA (23:04)
[2022-07-26] MEDS: SODIUM CHLORIDE 0.9% 1,000 ML IV SCH ×2 (23:21→23:27)
[2022-07-26] MEDS: HYDROmorphone 1 MG/ML 1 ML SYRINGE IVP PRN (23:22)
[2022-07-26 23:53] LABS: Basophils # (A) 0.1 k/uL (0-0.2); Basophils % (A) 1 %; Eosinophils # (A) 0.2 k/uL (0-0.7); Eosinophils % (A) 3 %; HCT 38.4 % (34.0-46.0); HGB 12.7 gm/dL (11.4-16.0); Lymphocytes # (A) 1.2 k/uL (1.0-4.8); Lymphocytes % (A) 15 %; MCH 28.2 pg (25.0-35.0); MCHC 32.9 g/dL (31.0-37.0); MCV 85.8 fL (80.0-100.0); Mean Platelet Volume 7.2; Monocytes # (A) 0.4 k/uL (0-1.0); Monocytes % (A) 5 %; Neutrophils # (A) 5.7 k/uL (1.3-7.7); Neutrophils % (A) 74 %; Platelet Count 303 k/uL (150-450); RBC 4.48 m/uL (3.80-5.40); RDW 14.9 % (11.5-15.5); WBC 7.7 k/uL (3.8-10.6)
[2022-07-27 00:02] LABS: INR 0.9 (<1.2); Partial Thromboplastin Time 25.3 sec (22.0-30.0); Prothrombin Time 9.8 sec (9.0-12.0)
[2022-07-27 00:04] LABS: Calcium 9.2 mg/dL (8.4-10.2); Magnesium 2.6 mg/dL (1.6-2.3); Phosphorus 4.7 mg/dL (2.5-4.5); Potassium 4.1 mmol/L (3.5-5.1); Total Bilirubin 0.6 mg/dL (0.2-1.3); Total Protein 9.1 g/dL (6.3-8.2)
[2022-07-27] MEDS ORDERED: NALOXONE 0.4 MG/ML 1 ML VIAL IV PRN (00:04)
--- NOTE | 2022-07-27 00:10 | XR ---
EXAMINATION TYPE: XR chest 2V DATE OF EXAM: 07/27/2022 COMPARISON: 01/29/2022 INDICATION: Weakness TECHNIQUE: Frontal and lateral views of the chest are obtained. FINDINGS: The heart size is normal. The pulmonary vasculature is normal. The lungs are clear. IMPRESSION: 1. No acute pulmonary process.
[2022-07-27] MEDS ORDERED: ACETAMINOPHEN TAB 500 MG TAB PO STA (00:52)
[2022-07-27] MEDS ORDERED: HYDROmorphone 0.5 MG/0.5 ML SYRINGE IVP STA (01:25)
[2022-07-27] MEDS: SODIUM CHLORIDE 0.9% 1,000 ML IV SCH ×4 (02:02→21:43)
--- NOTE | 2022-07-27 02:08 | P.CONS ---
History of Present Illness - Reason for Consult Consult date: 07/27/22 - History of Present Illness Patient is a 56-year-old female with a PMH of chronic lower back pain status post multiple surgeries with left foot drop, and hypertension who presents to the emergency room with left knee pain after fall. The patient reports that she was attempting to get onto her lawnmower when she lost her balance, falling off on a strange angle where she was able to find her footing but heard a snap with immediate left leg pain. She reports the pain was initially 10 out of 10 but has now improved to a 4 out of 10 at the time of interview. Of note, the patient did undergo a right knee surgery with Dr. Carvalho in 03/2022. The patient denied any additional complaints at the time of interview. She denied experiencing chest discomfort, shortness of breath, fever, chills, cough, nausea, vomiting, abdominal pain, diarrhea. In the emergency room, a knee x-ray revealed a lateral tibial plateau fracture with inferior displacement. Chest x-ray was unremarkable. EKG revealed sinus rhythm at [address]/T-wave changes noted as reviewed by me. Laboratory evaluation was reviewed and was remarkable for WBC count 7.7, hemoglobin 12.7, sodium 143, potassium 4.1, BUN 18, creatinine 0.85, magnesium 2.6, AST 45, troponin less than 0.012. ED documentation reviewed and case discussed with ED provider. Review of systems: Pertinent positives and negatives as discussed in HPI, a complete review of systems was performed and all other systems are negative. Physical examination: Vital signs reviewed General: non toxic, no distress, appears at stated age, overweight Derm: no unusual rashes/lesions, warm Head: atraumatic, normocephalic, symmetric Eyes: EOMI, no lid lag, anicteric sclera, pupils equal round reactive to light ENT: Nose and ears atraumatic Neck: No cervical lymphadenopathy, trachea midline, supple Mouth: no lip lesion, mucus membranes moist Cardiovascular: S1S2 reg, no murmur, positive dorsalis pedis pulse bilateral, no edema Lungs: CTA bilateral, no rhonchi, no rales, no accessory muscle use Abdominal: soft, nontender to palpation, no guarding Ext: muscle strength 5 out of 5 bilateral upper extremities, left foot strength and range of motion intact with brace over L knee, R LE strength 5/5, no gross muscle atrophy, no contractures Neuro: CN II-XI grossly intact, no gross focal neuro deficits Psych: Alert, oriented, appropriate affect Assessment: Left tibial plateau fracture with inferior displacement Chronic conditions: Hypertension, left foot drop with chronic lower back pain Imaging: knee x-ray revealed a lateral tibial plateau fracture with inferior displacement. Chest x-ray was unremarkable. EKG revealed sinus rhythm at [address]/T-wave changes noted as reviewed by me. Data Review: Laboratory evaluation was reviewed and was remarkable for WBC count 7.7, hem oglobin 12.7, sodium 143, potassium 4.1, BUN 18, creatinine 0.85, magnesium 2.6, AST 45, troponin less than 0.012. Plan: Continue with patient's home medications including Norvasc and Lyrica Preoperative evaluation The patient reports good exercise tolerance and states that she is independent with all her ADLs. Denied exertional dyspnea or chest discomfort. NSQIP score: 2.6% risk of any complication (below average) The patient is currently optimized and is low risk for orthopedic procedure We appreciate this opportunity to be involved in this patient's care. We will follow the patient with you. For any further questions, please not hesitate to contact the [facility] inpatient team. Past Medical History Past Medical History: Asthma, Hypertension, Osteoarthritis (OA) Additional Past Medical History / Comment(s): valerio neuropathy-post back surgery, CHRONIC BACK PAIN,fatty liver, POSSIBLE HEART MURMUR, EXCER[place] INDUCED ASTHMA,GLAUCOMA-HAD SURGERY History of Any Multi-Drug Resistant Organisms: None Reported Past Surgical History: Adenoidectomy, Back Surgery, Bariatric Surgery, Orthopedic Surgery Additional Past Surgical History / Comment(s): BACK SURGERY X 5. UP3. CTR-VALERIO WRIST. PAIN CLINIC PROCEDURES. Gastric Sleeve.08/25/19. 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 Past Psychological History: Depression Smoking Status: Never smoker Past Alcohol Use History: None Reported Past Drug Use History: None Reported - Past Family History Father Family Medical History: Cancer Additional Family Medical History / Comment(s): skin Mother Family Medical History: Cancer Additional Family Medical History / Comment(s): skin Medications and Allergies Home Medications Medication Instructions Recorded Confirmed Type Pregabalin [Lyrica] 300 mg PO BID 05/30/16 07/22/22 History Morphine Sulfate [Ms Contin] 30 mg PO HS 05/08/17 07/22/22 History HYDROcodone/APAP 7.5-325MG [[place] 2 tab PO Q4-6H PRN 09/15/18 07/22/22 History 7.5-325] rOPINIRole HCL [Requip] 0.25 mg PO DAILY PRN 11/10/18 07/22/22 History QUEtiapine [SEROquel] 50 mg PO HS 08/16/19 07/22/22 History amLODIPine [Norvasc] 5 mg PO BID 03/12/22 07/22/22 History Aspirin 81 mg PO BID 30 Days #60 tab 03/14/22 07/22/22 Rx Docusate [Colace] 100 mg PO BID #60 capsule 03/14/22 07/22/22 Rx Allergies Allergy/AdvReac Type Severity Reaction Status Date / Time No Known Allergies Allergy Verified 07/26/22 21:17 Physical Exam Vitals: Vital Signs Temp Pulse Pulse Resp BP BP Pulse Ox 07/27/22 01:54 98.2 F 72 18 165/77 97 07/27/22 01:39 98.0 F 73 22 118/67 95 07/26/22 23:42 97.6 F 73 16 156/89 97 07/26/22 21:14 98.3 F 76 18 124/68 98 Intake and Output 07/26/22 07/26/22 07/27/22 14:59 22:59 06:59 Other: Weight 85.275 kg Results CBC & Chem 7: 07/26/22 23:38 07/26/22 23:38 Labs: Abnormal Lab Results - Last 24 Hours (Table) 07/26/22 Range/Units 23:38 BUN 18 H (7-17) mg/dL Phosphorus 4.7 H (2.5-4.5) mg/dL Magnesium 2.6 H (1.6-2.3) mg/dL AST 45 H (14-36) U/L Total Protein 9.1 H (6.3-8.2) g/dL
[2022-07-27] MEDS: HYDROmorphone 1 MG/ML 1 ML SYRINGE IVP PRN ×3 (03:29→11:44)
[2022-07-27] MEDS ORDERED: MORPHINE SULFATE 2 MG/ML SYRINGE IVP STA ×2 (03:59→05:13)
--- NOTE | 2022-07-27 09:26 | P.HPOR ---
History of Present Illness H&P Date: 07/27/22 The patient is a very pleasant 56-year-old female who is well-known to me as a patient. The patient previously underwent a right partial patellectomy and patellar tendon repair earlier this year. The patient has a medical history significant for chronic pain for which she has a pain specialist and takes MS Contin at baseline as well as a left-sided foot drop that is chronic. The patient states that yesterday she was on a riding lawnmower when she fell off injuring her left knee. She had immediate pain, deformity, and an inability to ambulate. She presented to the emergency department where x-rays showed a significantly displaced tibial plateau fracture. She was admitted under my care. This morning she is complaining of isolated pain in her left knee and leg as well as spasms. Past Medical History Past Medical History: Asthma, Hypertension, Osteoarthritis (OA) Additional Past Medical History / Comment(s): valerio neuropathy-post back surgery,CHRONIC BACK PAIN,fatty liver, POSSIBLE HEART MURMUR, EXCER[place] INDUCED ASTHMA,GLAUCOMA-HAD SURGERY History of Any Multi-Drug Resistant Organisms: None Reported Past Surgical History: Adenoidectomy, Back Surgery, Bariatric Surgery, Orthopedic Surgery Additional Past Surgical History / Comment(s): BACK SURGERY X 5. UP3. CTR-VALERIO WRIST. PAIN CLINIC PROCEDURES. Gastric Sleeve.08/25/19. 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 Past Psychological History: Depression Smoking Status: Never smoker Past Alcohol Use History: None Reported Past Drug Use History: None Reported - Past Family History Father Family Medical History: Cancer Additional Family Medical History / Comment(s): skin Mother Family Medical History: Cancer Additional Family Medical History / Comment(s): skin Medications and Allergies Home Medications Medication Instructions Recorded Confirmed Type Pregabalin [Lyrica] 300 mg PO BID 05/30/16 07/22/22 History Morphine Sulfate [Ms Contin] 30 mg PO HS 05/08/17 07/22/22 History HYDROcodone/APAP 7.5-325MG [[place] 2 tab PO Q4-6H PRN 09/15/18 07/22/22 History 7.5-325] rOPINIRole HCL [Requip] 0.25 mg PO DAILY PRN 11/10/18 07/22/22 History QUEtiapine [SEROquel] 50 mg PO HS 08/16/19 07/22/22 History amLODIPine [Norvasc] 5 mg PO BID 03/12/22 07/22/22 History Aspirin 81 mg PO BID 30 Days #60 tab 03/14/22 07/22/22 Rx Docusate [Colace] 100 mg PO BID #60 capsule 03/14/22 07/22/22 Rx Allergies Allergy/AdvReac Type Severity Reaction Status Date / Time No Known Allergies Allergy Verified 07/26/22 21:17 Physical Examination The patient is resting in her bed and is in mild distress secondary to pain. Her head is normocephalic and atraumatic. She dementia nonlabored breathing with symmetric chest expansion. Her abdomen is soft and nonobese. Her upper extremities are without deformity and are nontender. On inspection of the right leg there is a well-healed incision over the anterior aspect of her knee from her prior patellar tendon surgery. Her right leg is otherwise without deformities and is nontender. A focused exam of the left lower extremity was conducted. There is a knee immobilizer in place which was taken down. There is moderate swelling throughout her left calf and leg. There are no fracture blisters or open wound. There is an obvious valgus deformity at the knee. Oather thigh and calf are soft and easily compressible. Distally she has palpable dorsalis pedis and posterior tibial pulses. There is no pain with passive range of motion of any of the muscle compartments of her lower leg. She has a chronic left foot drop. Results X-rays of the left knee show significantly displaced lateral plateau fracture. - Labs Labs: Abnormal Lab Results - Last 24 Hours (Table) 07/26/22 Range/Units 23:38 BUN 18 H (7-17) mg/dL Phosphorus 4.7 H (2.5-4.5) mg/dL Magnesium 2.6 H (1.6-2.3) mg/dL AST 45 H (14-36) U/L Total Protein 9.1 H (6.3-8.2) g/dL H & H 07/26/22 Range/Units 23:38 Hgb 12.7 (11.4-16.0) gm/dL Hct 38.4 (34.0-46.0) % Coagulation 07/26/22 Range/Units 23:38 INR 0.9 (<1.2) Result Diagrams: 07/26/22 23:38 07/26/22 23:38 Assessment and Plan Assessment: Closed, displaced left lateral tibial plateau fracture Chronic pain on MS Contin Chronic left foot drop Plan: I met with the patient this morning to discuss her injury and treatment. She has a significantly displaced lateral tibial plateau fracture. She is too swollen for definitive fixation so my recommendation was to proceed with a temporizing knee spanning external fixator. We discussed this procedure at length. She understands that this is temporary to allow swelling resolution after which she will need definitive open reduction and internal fixation. Following application of her knee spanning external fixator she will need a computed tomography scan to assist with preoperative planning. She will likely discharge home and follow-up in the office. We discussed that based on the computed tomography scan I will determine if this is an injury that I can definitively manage and if not she may need referral with orthopedic trauma surgeon. In the interim she is going to remain strictly nonweightbearing on her left lower extremity in a knee immobilizer until surgery later this morning. Time with Patient: Greater than 30
[2022-07-27] MEDS: HYDROcodone/APAP 7.5-325MG 1 EACH TAB PO PRN (09:51)
[2022-07-27] MEDS ORDERED: LACTATED RINGERS 1,000 ML IV ONE ×2 (12:12→13:37)
[2022-07-27] MEDS ORDERED: HYDROmorphone 0.5 MG/0.5 ML SYRINGE IVP ONE (12:29)
[2022-07-27] MEDS ORDERED: HYDROmorphone 1 MG/ML 1 ML SYRINGE IVP PRN (12:48)
[2022-07-27] MEDS ORDERED: fentaNYL (PF) 50 MCG/ML 2 ML AMP IVP ONE (12:53)
[2022-07-27] MEDS ORDERED: MIDAZOLAM 2 MG/2 ML VIAL IVP ONE (12:53)
[2022-07-27] MEDS ORDERED: DEXAMETHASONE SOD PHOSPHATE 4 MG/ML 1 ML VIAL IVP ONE (13:00)
[2022-07-27] MEDS ORDERED: SCOPOLAMINE 1 MG/72 HR PATCH TRANSDERM ONE (13:00)
[2022-07-27] MEDS ORDERED: ONDANSETRON 4 MG/2 ML VIAL IVP ONE (13:00)
--- NOTE | 2022-07-27 13:09 | P.ANPRN ---
Procedure Note - Anesthesia - Nerve Block Performed Left Other (see comment) Single Time Out Performed: Yes (Femoral nerve block) Date of Procedure: 07/27/22 Procedure Start Time: 12:52 Procedure Stop Time: 13:03 Location of Patient: PreOp Indication: Acute Post-Operative Pain, Requested by Surgeon Sedation Type: Sedate with meaningful contact maintained Preparation: Sterile Prep, Sterile Dressing Position: Supine Catheter: None Needle Types: Facet Needle Gauge: 20 Ultrasound used to visualize needle placement: Yes Ultrasound used to observe medication spread: Yes Injectate: 0.5% Ropivacaine (see comment for volume) (30 ml + decadron 4 mg) Blood Aspirated: No Pain Paresthesia on Injection Noted: No Resistance on Injection: Normal Image Stored and Saved: Yes Events: Uneventful and Well Tolerated
[2022-07-27] MEDS ORDERED: ePHEDrine 50 MG/ML 1 ML VIAL ONE (13:10)
[2022-07-27] MEDS ORDERED: DEXAMETHASONE SOD PHOSPHATE 4 MG/ML 1 ML VIAL ONE (13:10)
[2022-07-27] MEDS ORDERED: PROPOFOL 10 MG/ML 20 ML VIAL IV ONE (13:10)
[2022-07-27] MEDS ORDERED: fentaNYL (PF) 50 MCG/ML 2 ML AMP ONE (13:10)
[2022-07-27] MEDS ORDERED: ROPIVACAINE 5 MG/ML 30 ML VIAL ONE (13:10)
[2022-07-27] MEDS ORDERED: SUCCINYLCHOLINE CHLORIDE 200 MG/10 ML VIAL IV ONE (13:10)
--- NOTE | 2022-07-27 14:16 | FL ---
EXAMINATION TYPE: FL guidance operating room, XR knee limited LT DATE OF EXAM: 07/27/2022 CLINICAL HISTORY: Knee fracture. Limited intraoperative views left knee. TECHNIQUE: Fluoroscopy. COMPARISON: Knee x-ray from yesterday FINDINGS: Fluoroscopic guidance was provided during procedure performed by Dr. Carvalho. A total of 22 seconds of fluoroscopic time was utilized during the procedure and six spot images was acquired. Total dose area product (DAP) in uGy*m?, mGy*cm? (or similar: 0.3100. Images acquired show placement of 2 external fixating screws in the distal tibial diaphysis. IMPRESSION: As Above.
--- NOTE | 2022-07-27 14:27 | P.OP ---
Date of Procedure: 07/27/22 Preoperative Diagnosis: 1. Left lateral split depression tibial plateau fracture 2. Chronic left foot drop 3. Chronic pain Postoperative Diagnosis: Same Procedure(s) Performed: Application of left knee spanning external fixator as part of a staged procedure for tibial plateau fracture Anesthesia: JUAN F Surgeon: Arnold Carvalho Tripe Washer #1: Pieter Layne Estimated Blood Loss (ml): 25 IV fluids (ml): 500 Pathology: none sent Condition: stable Disposition: PACU Indications for Procedure: The patient is very pleasant 56-year-old female with a medical history significant for chronic pain on MS Contin who is admitted under my care with a left tibial plateau fracture. The patient sustained a fall off a lawnmower yesterday resulting in an isolated injury to her left knee. She was seen in the emergency department where x-rays showed a significantly displaced joint depression lateral tibial plateau fracture. She was placed in a knee immobilizer and admitted under my care. I met with the patient this morning examine her leg and discussed treatment. She had soft compartments but significant swelling. My recommendation was to place a knee spanning external fixator and obtain a computed tomography scan postoperatively. She understands that she will discharge home and will ultimately need definitive fixation of her tibial plateau fracture. We discussed the potential risks and complications of surgery at length including but certainly not limited to risks from anesthesia, superficial infection, deep infection, pin site complications, damage to blood vessels or nerves, fracture around the pin sites, need for further surgery, DVT, PE, other medical complications, and possibly loss of life or limb. She provided both her verbal and written consent to go forward with surgery. Description of Procedure: The patient was identified in preoperative holding and the correct left leg was marked with my initials. I reviewed the consent form with the patient and all of her questions were answered. The patient was then brought back to the operating room. She was positioned on the OR table where general anesthetic and preoperative antibiotics were given. A timeout was performed identifying the correct patient, operative extremity, and procedure. There is no obvious valgus deformity of the knee. Fluoroscopy was brought in and I verified that the knee could be brought out to length and the fracture reduced. The left leg was then prepped and draped in standard sterile fashion. I began by making a stab incision 4 fingerbreadths proximal to the superior aspect of the tibial plateau over the anterolateral aspect of the thigh to avoid the joint capsule. A 5 mm pin was placed bicortically through the femur. A guide was placed over the pin and a skin incision was made at the corresponding side of the more proximal guide and a second 5 mm pin was placed bicortically through the femur. Position of the pins was verified with biplanar fluoroscopy. A clamp was placed and tightened over both pins. Attention was then turned to the distal third of the tibia. A stab incision was made over the anterior aspect of the tibia and a pin was placed anterior to posterior just medial to the tibial crest I cortically to the tibia. A guide was placed and a second stab incision was made distally to the first pin corresponding to the guide. A second pin was placed bicortically. Position of both pins was verified with biplanar fluoroscopy. A clamp was placed and tightened. Pin-to-bar clamps were then placed followed by graphite bars. Longitudinal traction was pulled with slight knee flexion and all pins and clamps were tightened. Fluoroscopy was used to verify reduction of the knee. Adaptic was placed around all 4 pins followed by sterile sponges soaked in Betadine and Kerlix. The leg was wrapped in an Roger wrap. The patient was awoken from her anesthetic and transferred to recovery having tolerated the procedure well. Pieter Layne PA-C was required as a skilled computer lab assistant to the complexity of the surgery. Plan: The patient is going to discharge home tomorrow once her pain is controlled. We will get a computed tomography scan of her left knee for s urgical planning. The patient will need follow-up with a trauma surgeon following discharge to discuss definitive open reduction internal fixation. We will help to arrange this likely with Dr. La at [facility].
--- NOTE | 2022-07-27 17:12 | CT ---
EXAMINATION TYPE: CT knee LT wo con CT DLP: 172.9 mGycm, Automated exposure control for dose reduction was used. DATE OF EXAM: 07/27/2022 3:49 PM COMPARISON: Extremity radiograph same day. CLINICAL INDICATION:Female, 56 years old with history of tibial plateau fracture; PHH, Tibial plateau fx. Post Sx. TECHNIQUE: Axial images were obtained of the knee radiograph 07/27/2022 . Additional coronal and sagi ttal reformatted images and soft tissue and bone window were obtained for review. 3-D reconstruction was created on a separate workstation. Contrast used: None Oral contrast used: None FINDINGS: Comminuted fracture of the tibial plateau predominantly involving the lateral aspect is als o fractures extending into the diaphysis series 201 image 68. Multiple depressed pieces are visualize d involving the interarticular fragments of the tibial plateau some at least 8 mm. Fracture lines ext ends into the intercondylar eminence. The femur is relatively intact along with the patella and fibul a appears intact. There is soft tissue swelling in lipohemarthrosis. External fixation hardware is pa rtially visualized. IMPRESSION: Comminuted fracture of the tibial plateau with extension into the diaphysis. There is ass ociated lipohemarthrosis. Fracture depression of at least 8 mm for portions of this fracture at the j oint.
[2022-07-27 19:19] VITALS: RESP 16
[2022-07-27] MEDS: PREGABALIN 100 MG CAP PO SCH (20:29)
[2022-07-27] MEDS: ASPIRIN 81 MG PO SCH (20:29)
[2022-07-27] MEDS: amLODIPine 5 MG TAB PO SCH (20:29)
[2022-07-27] MEDS ORDERED: QUEtiapine 50 MG TAB PO SCH (21:00)
[2022-07-27] MEDS ORDERED: MORPHINE SULFATE ER 30 MG TABLET PO SCH (21:00)
[2022-07-28 02:55] VITALS: BP 137/73; PULSE 80; TEMP 97.6
[2022-07-28] MEDS: SODIUM CHLORIDE 0.9% 1,000 ML IV SCH ×2 (06:05→12:12)
[2022-07-28] MEDS: amLODIPine 5 MG TAB PO SCH (09:16)
[2022-07-28] MEDS: HYDROcodone/APAP 7.5-325MG 1 EACH TAB PO PRN (09:16)
[2022-07-28] MEDS: ASPIRIN 81 MG PO SCH (09:16)
[2022-07-28] MEDS: PREGABALIN 100 MG CAP PO SCH (09:17)
--- NOTE | 2022-07-28 10:15 | P.PN ---
Subjective Patient is doing much better this morning. The pain in her left leg is significantly improved, although she does still have a block in place. This was placed by anesthesia without my input. Objective - Vital Signs Vital signs: Vital Signs Temp 97.6 F 07/28/22 02:32 Pulse 80 07/28/22 02:32 Resp 16 07/28/22 02:32 BP 137/73 07/28/22 02:32 Pulse Ox 96 07/28/22 02:32 FiO2 Intake & Output 07/27/22 07/28/22 07/28/22 18:59 06:59 18:59 Intake Total 1400 1910 Balance 1400 1910 Intake: IV 1400 Intake, IV Titration 1550 Amount Sodium Chloride 0.9% 1, 1500 000 ml @ 130 mls/hr IV . Q7H42M [facility] Rx#:[id number] ceFAZolin 2 gm In Sodium 50 Chloride 0.9% 50 ml @ 100 mls/hr IVPB Q8HR [facility] Rx# :[id number] Oral 360 Other: Voiding Method Bedpan Bedpan Bedpan # Voids 1 2 1 - Exam The patient is resting comfortably in her bed. She is alert and able to answer questions. A focused exam the left lower extremity was conducted. There is a knee spanning external fixator in place. There is an Rogre wrap over her leg. Th e calf is diffusely soft. Her foot is warm and well perfused with brisk capillary refill. She has a palpable dorsalis pedis and posterior tibial pulse. - Labs CBC & Chem 7: 07/26/22 23:38 07/26/22 23:38 Assessment and Plan Assessment: Postoperative day #1 status post left knee spanning external fixator Chronic left foot drop Chronic pain Plan: Patient is doing well this morning. She is going to attempt to discharge home later today. She is remain strictly nonweightbearing on her left leg. She'll be given a one-time refill of Percocet, but going forward all pain medication request will go through her pain specialist. The patient understands that she will need definitive fixation and is going to contact Dr. Yoandy La's office on Friday. Dr. La is a trauma surgeon to [facility] and his agreed to take on her care.
--- NOTE | 2022-07-28 10:16 | P.DS ---
Providers Date of admission: 07/27/22 00:05 Attending physician: Arnold Carvalho Consults: 07/27/22 00:04 Consult Physician Routine Consulting Provider: Asad Souza Consult Reason/Comments: Renuka Do you want consulting provider notified?: Yes [facility] Course: This report 56-year-old female with a medical history significant for left foot drop and chronic pain who fell off a riding lawnmower sustaining an isolated injury to her left knee. She was seen in the emergency department where x-rays showed a significantly displaced and comminuted lateral plateau fracture. She was admitted under my care. I met with the patient to discuss treatment options. Due to the amount of swelling intra-articular comminution I recommended a joint spanning external fixator to allow resolution of soft tissue swelling. This was done yesterday. This morning she is doing well. We will plan on discharging her later today. Patient Condition at Discharge: Serious Plan - Discharge Summary Discharge Rx Participant: No New Discharge Prescriptions: New Aspirin 81 mg PO BID 30 Days #60 tab Sulfamethox-Tmp 800-160Mg [Bactrim DS 800-160 mg] 1 tab PO Q12HR 10 Days #20 tab oxyCODONE HCL/ACETAMINOPHEN [Percocet 5-325 mg] 1 tab PO Q6HR PRN #15 tab PRN Reason: Pain Docusate [Colace] 100 mg PO BID #60 capsule No Action Morphine Sulfate [Ms Contin] 30 mg PO HS HYDROcodone/APAP 7.5-325MG [Athol 7.5-325] 1 tab PO Q6H PRN PRN Reason: Pain rOPINIRole HCL [Requip] 0.25 - 0.5 mg PO HS PRN PRN Reason: SPASMS, PAIN QUEtiapine [SEROquel] 50 mg PO HS amLODIPine [Norvasc] 5 mg PO BID Rosuvastatin Calcium [Crestor] 40 mg PO HS DULoxetine HCL [Cymbalta] 60 mg PO DAILY Pregabalin [Lyrica] 300 mg PO Q12H Discharge Medication List Morphine Sulfate [Ms Contin] 30 mg PO HS 05/08/17 [History] HYDROcodone/APAP 7.5-325MG [Athol 7.5-325] 1 tab PO Q6H PRN 09/15/18 [History] rOPINIRole HCL [Requip] 0.25 - 0.5 mg PO HS PRN 11/10/18 [History] QUEtiapine [SEROquel] 50 mg PO HS 08/16/19 [History] amLODIPine [Norvasc] 5 mg PO BID 03/12/22 [History] DULoxetine HCL [Cymbalta] 60 mg PO DAILY 07/27/22 [History] Pregabalin [Lyrica] 300 mg PO Q12H 07/27/22 [History] Rosuvastatin Calcium [Crestor] 40 mg PO HS 07/27/22 [History] Aspirin 81 mg PO BID 30 Days #60 tab 07/28/22 [Rx] Docusate [Colace] 100 mg PO BID #60 capsule 07/28/22 [Rx] Sulfamethox-Tmp 800-160Mg [Bactrim DS 800-160 mg] 1 tab PO Q12HR 10 Days #20 tab 07/28/22 [Rx] oxyCODONE HCL/ACETAMINOPHEN [Percocet 5-325 mg] 1 tab PO Q6HR PRN #15 tab 07/28/22 [Rx] Follow up Appointment(s)/Referral(s): Hiro Díaz DO [Primary Care Provider] - 1-2 days Rehan La DO [REFERRING] - 1-2 Days Patient Instructions/Handouts: *Surgery [facility] - Scopalamine Patch Instructions
--- NOTE | 2022-07-28 13:55 | P.PN ---
Subjective Progress Note Date: 07/28/22 (Delayed charting seen in 10 AM) Patient is a 56-year-old female with chronic low back pain status post multiple surgeries on chronic opiate medications, hypertension, and asthma who presented to the ER after follow-up of her riding lawnmower with a resultant left tibial plateau fracture with inferior displacement. Patient seen and examined at bedside. She reports that her pain is well- controlled she had a block. She is slightly nervous about going home with pain control issues. We had a very cheyanne discussion that she cannot combine Percocet with Dorsey as it has Tylenol in both which could be due to a Tylenol overdose. She understands that she can take either Percocet or Dorsey and continue her MS Contin. Vital signs reviewed General: nontoxic, no distress, appears at stated age Cardiovascular: S1S2 reg, no murmur, positive posterior tibial pulse bilateral, Lungs: CTA bilateral, no rhonchi, no rales , no accessory muscle use Abdominal: soft, nontender to palpation, no guarding, no appreciable organomegaly Ext: no gross muscle atrophy, no edema, no contractures, ex-fix in place Psych: Alert, oriented, appropriate affect Assessment: Left tibial plateau fracture Chronic pain with chronic opiate dependency Chronic left foot drop Data Review: T-max the last 24 hours 99 Plan: -Case discussed with Dr. Carvalho. Patient is medically optimized for discharge at the discretion of orthopedic surgery. -Patient was told she could resume her home medications other than Dorsey and she is taking the Percocet Thank you for allowing us to participate in the care of this pleasant patient. Do not hesitate to contact us with questions. Someone can be reached from the [facility] hospitalist group all hours of the day at [phone] or via [employer]. This dictation was prepared using liveBooks voice recognition software. Though every attempt is made to correct errors during during dictation some may still exist. Objective - Vital Signs Vital signs: Vital Signs Temp 97.6 F 07/28/22 02:32 Pulse 80 07/28/22 02:32 Resp 16 07/28/22 02:32 BP 137/73 07/28/22 02:32 Pulse Ox 96 07/28/22 02:32 FiO2 Intake & Output 07/27/22 07/28/22 07/28/22 18:59 06:59 18:59 Intake Total 1400 1910 Balance 1399 1909 Intake: IV 1400 Intake, IV Titration 1550 Amount Sodium Chloride 0.9% 1, 1500 000 ml @ 130 mls/hr IV . Q7H42M ZAFAR Rx#:[id number] ceFAZolin 2 gm In Sodium 50 Chloride 0.9% 50 ml @ 100 mls/hr IVPB Q8HR [facility] Rx# :[id number] Oral 360 Other: Voiding Method Bedpan Bedpan Bedpan # Voids 1 2 1 - Labs CBC & Chem 7: 07/26/22 23:38 07/26/22 23:38
== END 2022-07-28 13:07 | disposition home or self-care (01) | DRG 494 ==
LOC: EC 20:47 → 5NMEDONC 07-27 00:05
PROVIDERS: ADMIT Orthopaedic Surgery; ATTEND Orthopaedic Surgery
PROC: 2W3MX3Z Immobilization of Left Lower Extremity using Brace (ICD-10-PCS; 2022-07-26)
PROC: 0QSH35Z Reposition Left Tibia with External Fixation Device, Percutaneous Approach (ICD-10-PCS; principal; 2022-07-27 12:00)
DX: S82.142A Displaced bicondylar fracture of left tibia, initial encounter for closed fracture (principal); K76.0 Fatty (change of) liver, not elsewhere classified; F32.A Depression, unspecified; I10 Essential (primary) hypertension; J45.909 Unspecified asthma, uncomplicated; M21.372 Foot drop, left foot; G89.29 Other chronic pain; G47.33 Obstructive sleep apnea (adult) (pediatric); G62.9 Polyneuropathy, unspecified; H40.9 Unspecified glaucoma; M19.90 Unspecified osteoarthritis, unspecified site; M54.50 Low back pain, unspecified; Y92.096 Garden or yard of other non-institutional residence as the place of occurrence of the external cause; Y93.I9 Activity, other involving external motion; W28.XXXA Contact with powered lawn mower, initial encounter; Z79.891 Long term (current) use of opiate analgesic; Z79.899 Other long term (current) drug therapy; Z71.6 Tobacco abuse counseling; Z98.84 Bariatric surgery status
CPT/HCPCS: 36415; 64447; 71046; 80053; 83605; 83735; 84100; 84484; 85025; 85610; 85730; 93005; 94760; 96361; 96374; 96375; 96376; 99285

== ENCOUNTER → 2023-01-22 | Outpatient (CLI) | payer MEDICARE ==
[2023-01-22 19:39] LABS: Synovial Fld Crystals None Seen (None Seen)
== END | disposition home or self-care (01) ==
LOC: LABPRL 12:20
PROVIDERS: ATTEND Orthopaedic Surgery
DX: M25.562 Pain in left knee (principal); M17.11 Unilateral primary osteoarthritis, right knee; S82.122D Displaced fracture of lateral condyle of left tibia, subsequent encounter for closed fracture with routine healing; X58.XXXD Exposure to other specified factors, subsequent encounter
CPT/HCPCS: 87070; 87075; 87205; 89050; 89060

== ENCOUNTER → 2023-01-30 | Outpatient (CLI) | payer MEDICARE ==
[2023-01-30 17:28] LABS: INR 0.9 (<1.2); Partial Thromboplastin Time 24.7 sec (22.0-30.0); Prothrombin Time 9.9 sec (10.0-12.5)
[2023-01-31 02:26] LABS: ALT 22 U/L (8-44); AST 39 U/L (13-35); Albumin 4.6 g/dL (3.8-4.9); Albumin/Globulin Ratio 1.53 Ratio (1.60-3.17); Alkaline Phosphatase 99 U/L (41-126); BUN/Creat Ratio 10.78 Ratio (12.00-20.00); Blood Urea Nitrogen 9.7 mg/dL (9.0-27.0); Calcium 9.7 mg/dL (8.7-10.3); Chloride 106 mmol/L (96-109); Glucose 95 mg/dL (70-110); Potassium 3.9 mmol/L (3.5-5.5); Sodium 145 mmol/L (135-145); Total Bilirubin 0.4 mg/dL (0.3-1.2); Total Protein 7.6 g/dL (6.2-8.2)
[2023-01-31 02:59] LABS: HCT 38.2 % (37.2-46.3); HGB 12.2 g/dL (12.0-15.0); MCH 27.7 pg (27.0-32.0); MCHC 31.9 g/dL (32.0-37.0); MCV 86.8 FL (80.0-97.0); Mean Platelet Volume 10.6 FL (9.5-12.2); NRBC Per 100 WBC 0 X 10*3/uL (0.00-0.01); Platelet Count 269 X 10*3/uL (140-440); RDW 14.1 % (11.5-14.5); WBC 4.35 X 10*3/uL (4.50-10.00)
== END | disposition home or self-care (01) ==
LOC: LABPAT 15:41
PROVIDERS: ATTEND Orthopaedic Surgery
DX: Z01.812 Encounter for preprocedural laboratory examination (principal); M17.12 Unilateral primary osteoarthritis, left knee; Z22.322 Carrier or suspected carrier of Methicillin resistant Staphylococcus aureus
CPT/HCPCS: 80053; 83036; 85027; 85610; 85652; 85730; 86140; 87070

== ENCOUNTER → 2023-02-11 | Outpatient (CLI) | payer MEDICARE ==
--- NOTE | 2023-02-11 13:55 | CT ---
EXAMINATION TYPE: CT left knee - [facility] Protocol DATE OF EXAM: 02/11/2023 COMPARISON: CT of the knee 07/27/2022 HISTORY: Tibial plateau fracture CT DLP: 677 mGycm TECHNIQUE: Axial, sagittal and coronal images are obtained. FINDINGS: There is fragmented, comminuted fracture involving the tibial plateau greater laterally with signific ant depression. Changes of osteoarthritis. There is a small suprapatellar bursal fluid collection. There is an ossification well corticated and likely chronic adjacent lateral right distal femur. Mild bilateral hip arthropathy. Small subcentimeter cyst within the left adnexa. Ankle mortise maintained. IMPRESSION: 1. Comminuted depressed and displaced fracture of the tibial plateau. 2. Subcentimeter left adnexal cyst recommend follow-up ultrasound.
== END | disposition home or self-care (01) ==
LOC: RADCTMAIN 13:03
PROVIDERS: ATTEND Orthopaedic Surgery
DX: S82.122D Displaced fracture of lateral condyle of left tibia, subsequent encounter for closed fracture with routine healing (principal); N83.202 Unspecified ovarian cyst, left side; X58.XXXD Exposure to other specified factors, subsequent encounter

== ENCOUNTER → 2023-03-11 | Outpatient (CLI) | payer MEDICARE ==
[2023-03-11 18:40] LABS: HCT 40.2 % (37.2-46.3); MCH 27.7 pg (27.0-32.0); MCHC 32.3 g/dL (32.0-37.0); MCV 85.5 FL (80.0-97.0); Mean Platelet Volume 11.3 FL (9.5-12.2); NRBC Per 100 WBC 0 X 10*3/uL (0.00-0.01); Platelet Count 269 X 10*3/uL (140-440); RDW 14.2 % (11.5-14.5); WBC 4.87 X 10*3/uL (4.50-10.00)
[2023-03-11 18:44] LABS: Blood Urea Nitrogen 12.3 mg/dL (9.0-27.0); Carbon Dioxide 22.9 mmol/L (21.6-31.8); Chloride 108 mmol/L (96-109); Potassium 3.5 mmol/L (3.5-5.5); Sodium 144 mmol/L (135-145)
== END | disposition home or self-care (01) ==
LOC: LABPAT 14:08
PROVIDERS: ATTEND Student in an Organized Health Care Education/Training Program
DX: Z01.812 Encounter for preprocedural laboratory examination (principal); I49.1 Atrial premature depolarization; I42.2 Other hypertrophic cardiomyopathy
CPT/HCPCS: 80051; 82565; 84520; 85027

== ENCOUNTER → 2023-03-13 | Outpatient (CLI) | payer MEDICARE | END | disposition home or self-care (01) | LOC: LABWHC1 12:05 | PROVIDERS: ATTEND Orthopaedic Surgery | DX: M17.11 Unilateral primary osteoarthritis, right knee (principal); S82.112D Displaced fracture of left tibial spine, subsequent encounter for closed fracture with routine healing; Y99.9 Unspecified external cause status | CPT/HCPCS: 36415; 85652; 86140 ==

== ENCOUNTER 2023-03-20 08:57 | Day surgery (SDC) | payer MEDICARE ==
[2023-03-14 15:06] VITALS: BMI 28.8
[~2023-03-20 08:57] MED LIST changes: +ALPRAZolam 0.25 MG TAB PO PRN; +ALPRAZolam 0.5 MG TAB PO PRN; +ASPIRIN 325 MG TAB PO ONE; -DEXAMETHASONE SOD PHOSPHATE 4 MG/ML 1 ML VIAL IV ONE; +HEPARIN SODIUM,PORCINE (1 ML) 2,500 UNIT in SODIUM CHLORIDE 0.9% 250 ML IRRIGATION PRN; +HEPARIN SODIUM,PORCINE 10,000 UNIT in SODIUM CHLORIDE 0.9% 1,000 ML IRRIGATION PRN; -LIDOCAINE 1% (10MG/ML) FOR IV START INTRADERMA PRN; +NITROGLYCERIN SL TABS 0.4 MG TAB SUBLINGUAL PRN; -ONDANSETRON 4 MG/2 ML VIAL IVP ONE; +SODIUM CHLORIDE 0.9% 1,000 ML in EMPTY BAG 1 BAG IV SCH
[2023-03-20] MEDS ORDERED: SODIUM CHLORIDE 0.9% 1,000 ML IV ONE (09:16)
[2023-03-20 09:42] VITALS: TEMP 97.8
[2023-03-20] MEDS ORDERED: LIDOCAINE 1% INJ 10MG/ML (20 ML MDV) ONE (10:21)
[2023-03-20] MEDS ORDERED: VERAPAMIL 2.5 MG/ML 2 ML AMP ONE (10:21)
[2023-03-20] MEDS ORDERED: fentaNYL (PF) 50 MCG/ML 2 ML AMP ONE (10:33)
[2023-03-20] MEDS ORDERED: HEPARIN SODIUM 1,000 UN/ML (10ML VL) ONE (10:33)
[2023-03-20] MEDS ORDERED: MIDAZOLAM 2 MG/2 ML VIAL IVP ONE (10:40)
[2023-03-20] MEDS ORDERED: fentaNYL (PF) 50 MCG/1 ML VIAL IVP ONE (10:40)
[2023-03-20] MEDS ORDERED: LIDOCAINE 1% INJ 10MG/ML (20 ML MDV) SQ ONE (10:41)
[2023-03-20] MEDS ORDERED: VERAPAMIL SYRINGE (5 MG/10 ML) INTRAARTER ONE (10:44)
[2023-03-20] MEDS ORDERED: HEPARIN SODIUM 1,000 UN/ML (10ML VL) IVP ONE (10:50)
[2023-03-20] MEDS ORDERED: IOPAMIDOL-370 100ML BTL INJ ONE (11:03)
--- NOTE | 2023-03-20 13:33 | P.CARDCATH ---
Date of Procedure: 03/20/23 Description of Procedure: DIAGNOSTIC CORONARY ANGIOGRAPHY and LEFT HEART CATH REPORT PROCEDURES PERFORMED: Left heart catheterization Selective coronary angiography Moderate conscious sedation 13 mins Ultrasound assisted Right radial access INDICATION: Shortness of breath, moderate concentric LVH, an equivocal stress test. She had a dobutamine stress echo and had NSVTs. CONSENT: I have discussed the risks, benefits and alternative therapies for the above-mentioned procedure, sedation/analgesia and necessary blood product administration (if indicated, as they pertain to this patient). The patient has indicated understanding and acceptance of the risks and procedures discussed. Conscious Sedation: Patient's ECG, heart rate, blood pressure, pulse oximetry was monitored throughout the duration of procedure under my direct supervision. [1] mg Versed and [50] mg Fentanyl were used for induction of moderate conscious sedation. Total duration of moderate concious sedation 13 minutes. PROCEDURE: After explaining the risks, benefits and alternatives of the above mentioned procedures in detail to the patient, informed consent was obtained. Patient was taken to the catheterization lab, prepped and draped in usual sterile fashion using universal precuations. Barbow and felipa test were performed to confirm adequate perfusion to fingers. Ultrasound was used to identify the radial artery. 1% lidocaine was infiltrated over the right radial artery. A 6-Maori sheath was placed and secured in the right radial artery using modified Seldinger technique. The sheath was flushed and 5 mg verapamil was administered intra-arterially. J tipped wire was advanced under fluoroscopic guidance. Once the wire tip reached aortic root 5000 units of IV heparin was given. Over the wire 5F [place] diagnostic catheter was advanced. Wire was removed, catheter was flushed and manipulated under fluoroscopy to selectively engaged the left coronary ostium. Left coronary angioplasty was performed in different angiographic projections. The catheter was disengaged and manipulated to cross the aortic valve. LV pressures were obtained. Pullback was performed across aortic valve and catheter was manipulated to selectively engage the right coronary ostium under fluoroscopic guidance. Right coronary angiography was performed in different angiographic projections. Catheter was removed over the wire. Radial sheath was flushed. The right radial sheath was removed and a TR band was placed with excellent patent hemostasis was achieved. The patient tolerated the procedure well. Patient was transported back to the post catheterization holding area in stable condition. Angiographic images were reviewed in detail. HEMODYNAMICS: Aortic Pressure: 84/52 mmHg. LV pressure: 84/0 mmHg. LVEDP 17 mmHg. SELECTIVE CORONARY ARTERIOGRAPHY: LEFT MAIN: The left main is a large caliber vessel which bifurcates into the LAD and circumflex. Left main appears angiographically normal. LEFT ANTERIOR DESCENDING CORONARY ARTERY: LAD is a large caliber vessel which wraps around to the apex. It appears angiographically normal. It gives restless more diagonal branch which appears angiographically normal LEFT CIRCUMFLEX CORONARY ARTERY: It is nondominant vessel. Left circumflex is a moderate caliber vessel. It appears angiographically normal. It gives rise to medium size OM branches appears angiographically normal RIGHT CORONARY ARTERY: Dominant vessel. The right coronary artery is a large caliber vessel which gives PDA and PLV branch. It appears angiographically normal. IMPRESSION: Angiographically normal coronary arteries as described above. Mildly elevated LVEDP at 17 mmHg PLAN: Aggressive risk factor modification per most recent ACC/AHA guidelines. 150 cc fluids for 3 hours Discharge home in 3 hours Follow-up in the office in 1-2 weeks. Performing Physician Josh Nunez MD
[2023-03-20 13:52] VITALS: PULSE 57; RESP 16
[2023-03-20 14:15] VITALS: BP 90/54
== END 2023-03-20 15:23 | disposition home or self-care (01) ==
LOC: CATHCVL 08:57
PROVIDERS: ATTEND Student in an Organized Health Care Education/Training Program
DX: I25.10 Atherosclerotic heart disease of native coronary artery without angina pectoris (principal); I42.2 Other hypertrophic cardiomyopathy; I10 Essential (primary) hypertension; I49.1 Atrial premature depolarization; Z79.899 Other long term (current) drug therapy
CPT/HCPCS: 93458; 76937; 99152; C1769 ×2; C1894; J2250; J2001; J1644; Q9967; J3010

== ENCOUNTER → 2023-03-31 | Outpatient (CLI) | payer MEDICARE ==
[2023-03-31 16:40] LABS: INR 0.9 (<1.2); Partial Thromboplastin Time 25.2 sec (22.0-30.0); Prothrombin Time 9.8 sec (10.0-12.5)
[2023-04-01 03:12] LABS: ALT 33 U/L (8-44); AST 79 U/L (13-35); Albumin 4.4 g/dL (3.8-4.9); Albumin/Globulin Ratio 1.29 Ratio (1.60-3.17); Alkaline Phosphatase 97 U/L (41-126); BUN/Creat Ratio 11.19 Ratio (12.00-20.00); Blood Urea Nitrogen 17.9 mg/dL (9.0-27.0); Calcium 9.7 mg/dL (8.7-10.3); Chloride 106 mmol/L (96-109); Globulin 3.4 g/dL (1.6-3.3); Glucose 119 mg/dL (70-110); Potassium 3.8 mmol/L (3.5-5.5); Sodium 145 mmol/L (135-145); Total Bilirubin 0.5 mg/dL (0.3-1.2); Total Protein 7.8 g/dL (6.2-8.2)
[2023-04-01 03:24] LABS: HCT 37.7 % (37.2-46.3); MCHC 31.8 g/dL (32.0-37.0); MCV 84.7 FL (80.0-97.0); Mean Platelet Volume 10.9 FL (9.5-12.2); NRBC Per 100 WBC 0 X 10*3/uL (0.00-0.01); Platelet Count 281 X 10*3/uL (140-440); RBC 4.45 X 10*6/uL (4.10-5.20); RDW 14.1 % (11.5-14.5); WBC 5.86 X 10*3/uL (4.50-10.00)
== END | disposition home or self-care (01) ==
LOC: LABPAT 15:02
PROVIDERS: ATTEND Orthopaedic Surgery
DX: Z01.812 Encounter for preprocedural laboratory examination (principal); M17.12 Unilateral primary osteoarthritis, left knee
CPT/HCPCS: 36415; 80053; 83036; 85027; 85610; 85730

== ENCOUNTER 2023-04-02 14:15 | Day surgery (SDC) | payer MEDICARE ==
[2023-03-26 16:34] VITALS: BMI 28.5
[~2023-04-02 14:15] MED LIST changes: -ALPRAZolam 0.25 MG TAB PO PRN; -ALPRAZolam 0.5 MG TAB PO PRN; -ASPIRIN 325 MG TAB PO ONE; +DEXAMETHASONE SOD PHOSPHATE 10 MG/ML 1 ML VIAL IV PRN; -HEPARIN SODIUM,PORCINE (1 ML) 2,500 UNIT in SODIUM CHLORIDE 0.9% 250 ML IRRIGATION PRN; -HEPARIN SODIUM,PORCINE 10,000 UNIT in SODIUM CHLORIDE 0.9% 1,000 ML IRRIGATION PRN; +HYDROmorphone 0.5 MG/0.5 ML SYRINGE IVP PRN; -NITROGLYCERIN SL TABS 0.4 MG TAB SUBLINGUAL PRN; +ONDANSETRON 4 MG/2 ML VIAL IVP PRN; -SODIUM CHLORIDE 0.9% 1,000 ML in EMPTY BAG 1 BAG IV SCH; +TRANEXAMIC 1,000 MG/100ML-NACL 1,000 MG in SALINE 1 100ML.BAG IV PRN; +TRANEXAMIC 1,000 MG/100ML-NACL 1,000 MG in SALINE 1 100ML.BAG IVPB PRN
[2023-04-02] MEDS: LACTATED RINGERS 1,000 ML IV SCH ×2 (14:25→23:11)
[2023-04-02] MEDS: ACETAMINOPHEN TAB 500 MG TAB PO PRN (14:52)
[2023-04-02] MEDS: oxyCODONE ER 10 MG TAB.ER.12H PO PRN (14:53)
[2023-04-02] MEDS: DOCUSATE 100 MG CAP PO PRN (14:53)
[2023-04-02] MEDS: KETOROLAC 15 MG/ML 1 ML VIAL IVP PRN (14:53)
[2023-04-02] MEDS: SCOPOLAMINE 1 MG/72 HR PATCH TRANSDERM ONE (14:58)
[2023-04-02] MEDS: FAMOTIDINE 20 MG/2 ML VIAL IVP PRN (14:58)
[2023-04-02] MEDS ORDERED: ACETAMINOPHEN TAB 325 MG TAB PO PRN (15:25)
[2023-04-02] MEDS ORDERED: bisacodyL 10 MG SUPP RECTAL PRN (15:25)
[2023-04-02] MEDS ORDERED: ONDANSETRON 4 MG/2 ML VIAL IVP PRN (15:25)
[2023-04-02] MEDS ORDERED: HYDROmorphone 0.5 MG/0.5 ML SYRINGE IVP PRN ×2 (15:25)
[2023-04-02] MEDS ORDERED: NA PHOS,M-B/NA PHOS,DI-BA 133 ML ENEMA RECTAL PRN (15:25)
[2023-04-02] MEDS ORDERED: NALOXONE 0.4 MG/ML 1 ML VIAL IV PRN (15:25)
[2023-04-02] MEDS ORDERED: HYDROmorphone 1 MG/ML 1 ML SYRINGE IVP PRN (15:25)
[2023-04-02] MEDS ORDERED: MAGNESIUM HYDROXIDE 2,400 MG/30 ML CUP PO PRN (15:25)
[2023-04-02] MEDS: MIDAZOLAM 2 MG/2 ML VIAL IVP ONE (15:42)
[2023-04-02] MEDS: fentaNYL (PF) 50 MCG/ML 2 ML AMP IVP ONE (15:42)
--- NOTE | 2023-04-02 16:04 | P.ANPRN ---
Procedure Note - Anesthesia - Nerve Block Performed Left Adductor Canal Single Time Out Performed: Yes Date of Procedure: 04/02/23 Procedure Start Time: 15:42 Procedure Stop Time: 15:50 Location of Patient: PreOp Indication: Acute Post-Operative Pain, Requested by Surgeon Sedation Type: Sedate with meaningful contact maintained Preparation: Sterile Prep Position: Supine Needle Types: Pajunk Needle Gauge: 21 Ultrasound used to visualize needle placement: Yes Ultrasound used to observe medication spread: Yes Injectate: 0.5% Ropivacaine (see comment for volume) (20 ml + 10 ml NS + 4 mg Dexamethasone) Blood Aspirated: No Pain Paresthesia on Injection Noted: No Resistance on Injection: Normal Image Stored and Saved: Yes Events: Uneventful and Well Tolerated
--- NOTE | 2023-04-02 16:05 | P.ANPRN ---
Procedure Note - Anesthesia - Nerve Block Performed Left iPack Single Time Out Performed: Yes Date of Procedure: 04/02/23 Procedure Start Time: 15:51 Procedure Stop Time: 15:59 Location of Patient: PreOp Indication: Acute Post-Operative Pain, Requested by Surgeon Sedation Type: Sedate with meaningful contact maintained Preparation: Sterile Prep Position: Supine Needle Types: Pajunk Needle Gauge: 21 Ultrasound used to visualize needle placement: Yes Ultrasound used to observe medication spread: Yes Injectate: 0.5% Ropivacaine (see comment for volume) (20 ml + 10 ml NS + 4 mg Dexamethasone) Blood Aspirated: No Pain Paresthesia on Injection Noted: No Resistance on Injection: Normal Image Stored and Saved: Yes Events: Uneventful and Well Tolerated
[2023-04-02] MEDS ORDERED: SODIUM CHLORIDE 0.9% (PF) 10 ML VIAL ONE (16:29)
[2023-04-02] MEDS ORDERED: PHENYLEPHRINE 10 MG/ML VIAL ONE (16:29)
[2023-04-02] MEDS ORDERED: ePHEDrine 50 MG/ML 1 ML VIAL ONE (16:29)
[2023-04-02] MEDS ORDERED: TRANEXAMIC 1,000 MG/100ML-NACL PREMIX BAG ONE (16:29)
[2023-04-02] MEDS ORDERED: fentaNYL (PF) 50 MCG/ML 2 ML AMP ONE (16:29)
[2023-04-02] MEDS ORDERED: ROCURONIUM 10 MG/ML (5 ML VIAL) IV ONE (16:29)
[2023-04-02] MEDS ORDERED: GLYCOPYRROLATE 0.2 MG/ML 2 ML VIAL ONE (16:29)
[2023-04-02] MEDS ORDERED: NEOSTIGMINE 1 MG/ML 10 ML VIAL ONE (16:29)
[2023-04-02] MEDS ORDERED: SUGAMMADEX SODIUM 200 MG/2 ML SDV IV ONE (16:29)
[2023-04-02] MEDS ORDERED: ROPIVACAINE 5 MG/ML 30 ML VIAL ONE (16:29)
[2023-04-02] MEDS ORDERED: LIDOCAINE 1% INJ 10MG/ML (20 ML MDV) ONE (16:29)
[2023-04-02] MEDS ORDERED: PROPOFOL 10 MG/ML 20 ML VIAL IV ONE (16:29)
[2023-04-02] MEDS ORDERED: PHENYLEPHRINE-0.9% NACL SYG 1,000 MCG/10 ML SYRINGE ONE (16:29)
[2023-04-02] MEDS ORDERED: SUCCINYLCHOLINE CHLORIDE 200 MG/10 ML VIAL IV ONE (16:29)
[2023-04-02] MEDS ORDERED: DEXAMETHASONE SOD PHOSPHATE 4 MG/ML 1 ML VIAL ONE (16:29)
[2023-04-02] MEDS ORDERED: MIDAZOLAM 2 MG/2 ML VIAL ONE (16:29)
[2023-04-02] MEDS ORDERED: FLUMAZENIL 0.1 MG/ML 5 ML VIAL IVP ONE (16:29)
[2023-04-02] MEDS: ROPIVACAINE/EPI/CLONIDINE/KET 50 ML SYRINGE MISCELLANE PRN (17:10)
[2023-04-02] MEDS: LACTATED RINGERS 1,000 ML IV ONE ×2 (17:45→22:18)
[2023-04-02] MEDS: VANCOMYCIN 1,000 MG VIAL MISCELLANE ONE ×2 (18:48→18:59)
--- NOTE | 2023-04-02 19:52 | P.OP ---
Date of Procedure: 04/02/23 Preoperative Diagnosis: 1. Prior lateral left split depression tibial plateau fracture malunion and significant valgus deformity 2. Chronic pain on long-term oral narcotic pain medications 3. Left foot drop, chronic 4. Prior right patella fracture status post partial patellectomy and patellar tendon repair Postoperative Diagnosis: Same Procedure(s) Performed: 1. Left total knee arthroplasty 2. Computer assisted musculoskeletal navigation using CT/MRI images Modifier 22 for increased procedural complexity: Justification: This operation required significantly more time, work, and procedural complexity than a standard primary or revision total joint arthroplasty. Specifically the prior traumatic changes and or surgical procedure left a significantly altered surgical field with resultant scar tissue, adhesions, and altered anatomy that required a longer and more difficult and complex surgical dissection. This patient required: Extensile exposure requiring meticulous and extensive debridement due to prior failed surgery and contractures Significantly prolonged operative time Prior tibial plateau fracture with resultant mal-union, adhesions and stiffness All of the above result in a physically and mentally challenging operative procedure that in my professional opinion necessitates a 30% increase above standard the schedule Implants: 1. [employer]olo Triathlon PS Femur Size #3 2. [employer]olo Triathlon [place] Tibial Base Size #2 with 9x100 mm cemented stem 3. [place] Triathlon TS poly Size #13 4. [employer]olo Triathlon all poly patella, Size #29 Anesthesia: JUAN F, regional Surgeon: Arnold Carvalho Land Manager #1: Dillon Quiros Estimated Blood Loss (ml): 200 IV fluids (ml): 1,200 Pathology: none sent Condition: stable Disposition: PACU Indications for Procedure: The patient is a very pleasant 57-year-old female with medical history significant for a chronic left foot drop, prior right partial patellectomy knee for a repairable patella fracture and a left tibial plateau fracture. The patient initially underwent staged treatment of her left tibial plateau fracture with a knee spanning external fixator followed by open reduction and internal fixation. She went on to develop collapse of the lateral plateau. Her orthopedic trauma surgeon removed the plate and screws 3 months ago and took deep cultures. There was no sign of infection. She was referred back to me for definitive treatment. Given the significant deformity of her left leg and resultant bony defect as well as chronic pain and difficulty ambulating my recommendation was to proceed with a total knee replacement using a stem to bypass the fracture and the tibia. We discussed the procedure at length. The patient also understands her particular risk factors including chronic pain, a foot drop, and prior right knee surgery. She has realistic expectations on her outcome. She also understands that all request for pain medications will be filled by her pain specialist. I met with the patient preoperatively in the office setting and discussed treatment of their symptomatic knee arthritis. They failed a long course of nonsurgical treatment and elected to proceed with an elective total knee replacement. I discussed the potential risks and complications at length and gave them ample time to ask questions. Risks discussed included: risks from anesthesia, superficial site surgical infection, acute and/or chronic periprosthetic joint infection, delayed wound healing, drainage, wound necrosis, instability, stiffness, stiffness requiring manipulation and/or revision surgery, damage to local blood vessels or nerves, aseptic loosening of the implants, extensor mechanism issues including disruption, patellar maltracking, avascular necrosis etc., continued or worsened knee pain, generalized dissatisfaction with surgical outcome, need for revision surgery, an inability to regain preinjury level of function, DVT, PE, other medical complications, and possibly loss of life or limb. The patient voiced their understanding that while these are the most common complications other less common complications are possible. They provided both their verbal and written consent to go forward with surgery. Operative Findings: There was a lateral incision over the proximal lateral tibia. The incision appeared well healed and was too far lateral to incorporate into a usable incision for total knee arthroplasty. I made a standard midline incision cheated slightly medial to allow an appropriate skin bridge. Large defect in the lateral lateral tibial plateau with significant fibrous tissue and adhesions and the knee. Mild arthritic changes on the femoral condyles and medial facet of the patella. Description of Procedure: The patient was identified in preoperative holding and the correct operative extremity was verified and marked with a marker. I reviewed the consent form with the patient at length. All of their questions were answered. The patient was given a block by anesthesia. They were then brought back to the operating room. They were transferred onto the operating room table where a general anesthetic, preoperative antibiotics, and tranexamic acid were administered by anesthesia. A tourniquet was applied to the proximal aspect of the operative extremity. The contralateral extremity was padded under the heel and secured to the operating room table with a nonsterile blue towel and tape. The ipsilateral arm was carefully draped across the patient's chest and secured with a pillow and foam. A post was applied over the lateral aspect of the ipsilateral thigh and a bolster was placed under the ipsilateral foot. I verified that the operative extremity was stable and the knee was flexed to 90. The operative extremity was then placed in a leg kong, nonsterile drapes were applied, and the extremity was prepped and draped sterilely in the standard sterile fashion. Prior to starting surgery timeout was performed identifying the correct patient, operative extremity, and procedure. The leg was then elevated, exsanguinated with an Esmarch bandage, and the tourniquet was inflated. An anterior midline incision was made sharply with a scalpel. There was a healed oblique lateral incision over the proximal tibia. This was felt to be too lateral to be usable for a total knee arthroplasty so a standard anterior midline incision was made cheated slightly medial to allow an appropriate sized skin bridge. Once I had dissected deep to the superficial fascial layer medial and lateral flaps were elevated. A medial parapatellar arthrotomy was created. There was a large clear effusion with yellow synovial fluid and no sign of purulence. There are mild arthritic changes diffusely throughout the knee. There was a large defect in the posterolateral tibia with abundant scar tissue. There were adhesions throughout the knee requiring release down to the intermuscular septum to re-create the gutters. Due to the adhesions within her knee dissection was very tedious and time consuming. The anterior horn of the medial meniscus were sharply released and a medial release was performed around the posterior medial corner of the knee to facilitate retractor placement. The fat pad was excised with electrocautery. The patella was found to be severely arthritic and a provisional cut was made with a sagittal saw to facilitate mobilization of the extensor mechanism during the procedure. Remnants of the ACL and PCL were then excised from the notch. 4 mm pins were then placed within the incision in the medial distal femur and proximal tibia. Arrays were applied to the pins and I verified they were completely tightened. The knee was then registered with the Weotta robot and manipulations in implant position were made to balance the knee and opitmize implant position. Using the Weotta robotic saw all cuts were made in accordance with our plan. After all bony fragments had been removed the cuts were verified with the planar probe. The tibia was then subluxed forward and sized. The knee was brought into flexion and a lamina hand edge bander was placed to allow removal of the meniscal remnants both medially and laterally as well as posterior osteophytes. The posterior lateral defect was identified and a curet was used to debride down to healthy bleeding bone. The defect appeared contained. Local anesthetic was then infiltrated around the joint capsule. Trial implants were then placed within the knee. Range of motion and collateral ligament tension was then evaluated. Adjustments in implant size and position were then made accordingly. Once the knee was felt to be appropriately balanced the Saad pins were removed. The patella was then recut, sized, and punched. A trial patellar button was then placed. With the trial components in place, the patella tracked midline. The femur was then drilled and the trial component removed. A cutting guide for a posterior stabi lized implant was placed box was cut with a reciprocating saw and a sharp osteotome. The trial tibial component was then appropriately rotated, pinned, and prepared for the keel. I then reamed for a 100 mm stem. All trial components were then removed from the knee. The knee was thoroughly irrigated with pulsatile lavage. I then proceeded to place and cemented the implants in a staged fashion. A cement restrictor was placed to a depth just distal to the end of the tibial stem. Cement was mixed into a cement gun and then pressurized into the tibia when it had reached the appropriate consistency. The tibial baseplate was held into position until the cement had fully set. A trial liner was placed onto the tibia and the femur was prepared for cementing. One bag of cement was mixed on the back table and then pressurized using my finger into the cut surfaces the femur. The final femoral implant was gently tapped into place. All extruded cement was removed including from the pin sites. Patellar button was also cemented into place. Once the cement had hardened the knee was evaluated one final time with the trial polyethylene liner in place. The knee had full extension and flexion and felt stable to varus and valgus stress throughout the arc of motion. The final total stabilized polyethylene liner was placed within the knee. The tourniquet was released and with the tourniquet down the patella tracked midline. All bleeders were controlled with electrocautery. The knee was then soaked for 3 minutes with a dilute Betadine soak. The knee was thoroughly irrigated using 3 L of sterile saline and pulsatile lavage. 2 grams of vancomycin powder was placed within the wound. The extensor mechanism was then reapproximated using pop off Vicryl sutures followed by a running barbed suture. The knee was then closed in layers with a 0 strata fix for the deep fascial layer, 2-0 strata fix for the superficial subcutaneous layer and Monocryl and Steri-Strips for the skin. A sterile dressing was applied. I verified that all instrument, sponge, and sharp counts were correct. The patient was then transferred off the operating room table, extubated, and brought to recovery having tolerated the procedure well. Dillon Quiros PA-C was required as a skilled pathology assistant due to the complexity of the surgery for patient positioning, retraction, exposure, placement of implant s, closure of wound, and application of dressing. PLAN: The patient can weight-bear as tolerated on the operative extremity. DVT prophylaxis with aspirin 81 mg twice a day based on preoperative risk stratification. The patient is going to attempt to leave as an outpatient. They can be discharged as long as they passed physical therapy and her pain is controlled. Follow-up in the office in 2 weeks for wound check and x-rays of the knee including an AP and lateral.
[2023-04-02] MEDS: FLUMAZENIL 0.1 MG/ML 5 ML VIAL IVP ONE (20:10)
[2023-04-02] MEDS: diphenhydrAMINE 50 MG/ML 1 ML VIAL IVP ONE (20:20)
--- NOTE | 2023-04-02 21:11 | XR ---
EXAMINATION TYPE: XR knee limited LT DATE OF EXAM: 04/02/2023 8:28 PM CLINICAL INDICATION:Female, 57 years old with history of Evaluation for Postop abnormality and alignm ent; H COMPARISON: 07/26/2022 TECHNIQUE: XR knee limited LT; examined in Frontal, lateral and oblique projections. FINDINGS: Status post knee arthroplasty changes with hardware in appropriate alignment and intact. No evidence of fracture. Subcutaneous lucencies and lucencies within the joint consistent with surgic al changes. IMPRESSION: Status post total knee arthroplasty changes with hardware intact and appropriate alignment. No fractu res identified. .
[2023-04-02] MEDS: MAGNESIUM SULFATE-D5W PMX 1 GM in DEXTROSE/WATER 1 100ML.BAG IVPB SCH (21:36)
[2023-04-02] MEDS: ONDANSETRON 4 MG/2 ML VIAL IVP ONE (23:11)
[2023-04-02] MEDS: DEXAMETHASONE SOD PHOSPHATE 4 MG/ML 1 ML VIAL IV ONE (23:11)
[2023-04-02] MEDS: SENNOSIDES-DOCUSATE SODIUM 1 EACH TAB PO SCH (23:23)
[2023-04-02] MEDS: ASPIRIN 81 MG PO SCH (23:23)
--- NOTE | 2023-04-03 04:05 | P.CONS ---
History of Present Illness - Reason for Consult Consult date: 04/03/23 - History of Present Illness Patient is a 57-year-old female with a PMH of hypertension and hyperlipidemia who was admitted for an elective left total knee replacement. The patient underwent the procedure earlier today and was seen postoperatively on the surgical unit. She reported excellent control of pain, rated at a 0 out of 10 at the time of interview. She reports not having gotten out of bed as of yet and has not passed flatus or had a bowel movement. She denied experiencing sore throat, chest discomfort, shortness of breath, fever, chills, cough, nausea, vomiting, abdominal pain, diarrhea. She reports compliance with her medications at home ED documentation reviewed and case discussed with ED provider. Review of systems: Pertinent positives and negatives as discussed in HPI, a complete review of sy stems was performed and all other systems are negative. Physical examination: Vital signs reviewed General: non toxic, no distress, appears at stated age, overweight Derm: no unusual rashes/lesions, warm Head: atraumatic, normocephalic, symmetric Eyes: EOMI, no lid lag, anicteric sclera, pupils equal round reactive to light ENT: Nose and ears atraumatic Neck: No cervical lymphadenopathy, trachea midline, supple Mouth: no lip lesion, mucus membranes moist Cardiovascular: S1S2 reg, no murmur, positive dorsalis pedis pulse bilateral, no edema Lungs: CTA bilateral, no rhonchi, no rales, no accessory muscle use Abdominal: soft, nontender to palpation, no guarding Ext: muscle strength 5 out of 5 in all 4 extremities grossly except left proximal lower extremity postsurgically, left knee anterior dressing in place and clean and dry, no gross muscle atrophy, no contractures, Neuro: CN II-XI grossly intact, no gross focal neuro deficits Psych: Alert, oriented, appropriate affect Assessment: Chronic conditions: Hypertension, hyperlipidemia Status post left total knee replacement Plan: Continue with home medications Defer management of pain control and DVT prophylaxis to the primary surgery service Past Medical History Past Medical History: Asthma, Hyperlipidemia, Hypertension, Osteoarthritis (OA) Additional Past Medical History / Comment(s): valerio neuropathy-post back surgery,CHRONIC BACK PAIN,fatty liver, POSSIBLE HEART MURMUR, EXCERcise INDUCED ASTHMA,GLAUCOMA-HAD SURGERY History of Any Multi-Drug Resistant Organisms: None Reported Past Surgical History: Adenoidectomy, Back Surgery, Bariatric Surgery, Orthopedic Surgery Additional Past Surgical History / Comment(s): BACK SURGERY X 5, rt patella repair, lft knee cage placed and plates placed and removed. UP3. [facility]. PAIN CLINIC PROCEDURES. Gastric Sleeve.08/25/19. 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 Mother Family Medical History: Cancer Additional Family Medical History / Comment(s): Skin cancer. Medications and Allergies Home Medications Medication Instructions Recorded Confirmed Type Morphine Sulfate [Ms Contin] 30 mg PO BID 05/08/17 03/26/23 History HYDROcodone/APAP 7.5-325MG [[place] 1 tab PO Q6H PRN 09/15/18 04/02/23 History 7.5-325] rOPINIRole HCL [Requip] 0.25 - 0.5 mg PO HS PRN 11/10/18 04/02/23 History QUEtiapine [SEROquel] 50 mg PO HS 08/16/19 04/02/23 History amLODIPine [Norvasc] 5 mg PO BID 03/12/22 03/26/23 History DULoxetine HCL [Cymbalta] 60 mg PO QAM 07/27/22 03/26/23 History Pregabalin [Lyrica] 300 mg PO Q12H 07/27/22 03/26/23 History Rosuvastatin Calcium [Crestor] 40 mg PO DAILY 07/27/22 04/02/23 History Metoprolol Succinate (ER) [Toprol 25 mg PO QAM 03/20/23 03/26/23 History Xl] Aspirin [Adult Low Dose Aspirin EC] 81 mg PO BID #60 tab 04/02/23 Rx Docusate [Colace] 100 mg PO BID #60 capsule 04/02/23 Rx Doxycycline Hyclate 100 mg PO BID #10 tab 04/02/23 Rx Allergies Allergy/AdvReac Type Severity Reaction Status Date / Time No Known Allergies Allergy Verified 04/02/23 14:30 Physical Exam Vitals: Vital Signs Temp Pulse Resp BP Pulse Ox 04/03/23 00:40 97.4 F L 76 15 106/68 93 L 04/02/23 22:20 74 20 93/50 94 L 04/02/23 21:50 78 20 93/54 96 04/02/23 21:20 75 18 97/52 96 04/02/23 21:05 84 15 97/54 96 04/02/23 20:50 87 15 99/52 96 04/02/23 20:35 92 17 118/56 95 04/02/23 20:25 97.5 F L 77 13 110/60 92 L 04/02/23 20:20 96 12 123/56 95 04/02/23 19:52 98.3 F 93 14 121/67 93 L 04/02/23 15:58 76 16 98/62 95 04/02/23 14:45 98.5 F 87 18 139/87 96 Intake and Output 04/02/23 04/02/23 04/03/23 14:59 22:59 06:59 Intake Total 400 1950 Output Total 200 Balance 400 1750 Intake: IV 400 1950 Output: Estimated Blood Loss 200 Other: Weight 87.9 kg
[2023-04-03] MEDS: PREGABALIN 100 MG CAP PO SCH (04:35)
--- NOTE | 2023-04-03 07:50 | P.PN ---
Subjective Doing well this morning. Her pain is controlled. She has no other complaints. Objective - Vital Signs Vital signs: Vital Signs Temp 97.4 F L 04/03/23 00:40 Pulse 76 04/03/23 00:40 Resp 15 04/03/23 00:40 BP 106/68 04/03/23 00:40 Pulse Ox 93 L 04/03/23 00:40 FiO2 Intake & Output 04/02/23 04/03/23 04/03/23 18:59 06:59 18:59 Intake Total 1650 700 Output Total 200 Balance 1650 500 Weight 87.9 kg Intake: IV 1650 700 Output: Estimated Blood Loss 200 Other: # Voids 2 - Exam Patient is resting comfortably in her bed. She is alert and able to answer questions. A focused exam of the left lower extremity was conducted. There is a clean dressing over the anterior aspect of the knee. Her thigh and calf are soft. Sensation is intact distally in the left foot. She has a chronic foot drop but is able to actively move her foot and toes. Assessment and Plan Assessment: Postoperative day #1 status post complex left total knee replacement History of chronic pain on long-term oral narcotics Chronic left foot drop History of right patella fracture with partial patellectomy and patellar tendon repair History of left tibial plateau fracture with collapse and valgus deformity Plan: 1. Weight-bear as tolerated left lower extremity, with assistance and a walker 2. Leave surgical dressing in place 3. 2 doses postoperative antibiotics followed by doxycycline until her incision heals 4. DVT prophylaxis with aspirin 81 mg twice a day 5. Internal medicine for perioperative medical management 6. Physical therapy for gait training and mobilization 7. Dispo: Given the patient's complex surgery and her history of chronic pain to plan on keeping her an additional night for pain control. We'll plan on discharge tomorrow if she is comfortable. Patient has a pain contract and her pain specialist will be managing discharge prescriptions for pain medication
[2023-04-03] MEDS: METOPROLOL SUCCINATE (ER) 25 MG TAB.ER.24H PO SCH (08:03)
[2023-04-03] MEDS: amLODIPine 5 MG TAB PO SCH (08:03)
[2023-04-03 08:08] LABS: Basophils % (A) 0 %; Eosinophils % (A) 0 %; HCT 31.6 % (34.0-46.0); HGB 10.6 gm/dL (11.4-16.0); Lymphocytes # (A) 0.7 k/uL (1.0-4.8); Lymphocytes % (A) 7 %; MCH 28.3 pg (25.0-35.0); MCHC 33.4 g/dL (31.0-37.0); MCV 84.6 fL (80.0-100.0); Mean Platelet Volume 8.3; Monocytes # (A) 0.4 k/uL (0-1.0); Monocytes % (A) 3 %; Neutrophils # (A) 9.2 k/uL (1.3-7.7); Neutrophils % (A) 89 %; Platelet Count 213 k/uL (150-450); RBC 3.74 m/uL (3.80-5.40); RDW 14.9 % (11.5-15.5); WBC 10.3 k/uL (3.8-10.6)
[2023-04-03] MEDS: DULoxetine HCL 60 MG CAPSULE.DR PO SCH (08:08)
[2023-04-03] MEDS: ATORVASTATIN 80 MG TAB PO SCH (08:08)
[2023-04-03] MEDS: HYDROcodone/APAP 10-325MG 1 EACH TAB PO PRN ×2 (08:08→18:30)
[2023-04-03] MEDS: MULTIVITAMINS, THERA 1 EACH TAB PO SCH (12:12)
[2023-04-03] MEDS: QUEtiapine 50 MG TAB PO SCH (19:59)
[2023-04-03] MEDS: diazePAM 5 MG TAB PO PRN (20:03)
[2023-04-04 02:01] VITALS: TEMP 97.7
[2023-04-04 08:11] VITALS: BP 124/78; PULSE 62; RESP 16
--- NOTE | 2023-04-04 10:24 | P.DS ---
Providers Date of admission: Friday Attending physician: Arnold Carvalho Consults: 04/03/23 02:31 Consult Physician Routine Consulting Provider: Asad Souza Consult Reason/Comments: post op medical management Do you want consulting provider notified?: Yes Primary care physician: [facility] Course: The patient is a very pleasant 57-year-old female with a history significant for having a prior left tibial plateau fracture and a chronic left foot drop. She went on to develop arthritis and collapse following her plateau fracture and presented for an elective total hip replacement. Following an uncomplicated surgery she was admitted under my care. She received 2 doses of postoperative antibiotics. She was treated with aspirin for DVT prophylaxis. Internal medicine was consulted for perioperative medical management. The patient stayed an additional night due to her history of chronic pain. On postoperative day #2 she was comfortable. Her incision and dressing were intact. Her thigh and calf are soft. There is minimal swelling. Her foot drop was at baseline. Good for discharge home. Pain medications for home are prescribed by her PCP with whom she has a pain contract. Plan - Discharge Summary Discharge Rx Participant: No New Discharge Prescriptions: New Aspirin [Adult Low Dose Aspirin EC] 81 mg PO BID #60 tab Docusate [Colace] 100 mg PO BID #60 capsule Doxycycline Hyclate 100 mg PO BID #10 tab Continue Morphine Sulfate [Ms Contin] 30 mg PO BID HYDROcodone/APAP 7.5-325MG [[place] 7.5-325] 1 tab PO Q6H PRN PRN Reason: Pain rOPINIRole HCL [Requip] 0.25 - 0.5 mg PO HS PRN PRN Reason: SPASMS, PAIN QUEtiapine [SEROquel] 50 mg PO HS amLODIPine [Norvasc] 5 mg PO BID Metoprolol Succinate (ER) [Toprol XL] 25 mg PO QAM Rosuvastatin Calcium [Crestor] 40 mg PO DAILY DULoxetine HCL [Cymbalta] 60 mg PO QAM Pregabalin [Lyrica] 300 mg PO Q12H Discharge Medication List Morphine Sulfate [Ms Contin] 30 mg PO BID 05/08/17 [History] HYDROcodone/APAP 7.5-325MG [[place] 7.5-325] 1 tab PO Q6H PRN 09/15/18 [History] rOPINIRole HCL [Requip] 0.25 - 0.5 mg PO HS PRN 11/10/18 [History] QUEtiapine [SEROquel] 50 mg PO HS 08/16/19 [History] amLODIPine [Norvasc] 5 mg PO BID 03/12/22 [History] DULoxetine HCL [Cymbalta] 60 mg PO QAM 07/27/22 [History] Pregabalin [Lyrica] 300 mg PO Q12H 07/27/22 [History] Rosuvastatin Calcium [Crestor] 40 mg PO DAILY 07/27/22 [History] Metoprolol Succinate (ER) [Toprol XL] 25 mg PO QAM 03/20/23 [History] Aspirin [Adult Low Dose Aspirin EC] 81 mg PO BID #60 tab 04/02/23 [Rx] Docusate [Colace] 100 mg PO BID #60 capsule 04/02/23 [Rx] Doxycycline Hyclate 100 mg PO BID #10 tab 04/02/23 [Rx] Follow up Appointment(s)/Referral(s): [facility] [[facility]] - 1-2 Days ([facility] will call you to schedule your in home physical therapy visits. ) Arnold Carvalho MD [Medical Doctor] - 2 Weeks Activity/Diet/Wound Care/Special Instructions: Weight bear as tolerated Keep wound clean and dry take meds as directed follow up in office Discharge Disposition: HOME WITH HOME HEALTH SERVICES
--- NOTE | 2023-04-04 12:37 | P.PN ---
Subjective Progress Note Date: 04/04/23 Patient is a 57-year-old female with a PMH of hypertension and hyperlipidemia who was admitted for an elective left total knee replacement. Surgery performed on 04/02. Sound physicians consulted for medical management. 04/04 Patient was seen and examined. Reports well controlled pain in the left knee. Urinating freely. No bowel movement but passing gas. Plans for discharge home today. CBC Hg 10.6 Hct 31.6. General: Non toxic, no distress, appears at stated age Derm: Warm, dry Head: Atraumatic, normocephalic, symmetric Eyes: EOMI, no lid lag, anicteric sclera Cardiovascular: S1S2 reg, no murmur Lungs: CTA bilateral, no rhonchi, no rales, no accessory muscle use Ext: No gross muscle atrophy, no edema, no contractures Neuro: no focal neuro deficits Psych: Alert, oriented, appropriate affect Acute blood loss anemia: Expected result of surgery. Hypertension: Amlodipine 5 mg PO BID. Metoprolol 25 mg PO QAM. Hyperlipidemia: Crestor 40 mg PO QD. Status post left total knee replacement Patient is medically stable for discharge. Objective - Vital Signs Vital signs: Vital Signs Temp 97.7 F 04/04/23 01:11 Pulse 62 04/04/23 06:46 Resp 16 04/04/23 06:46 BP 124/78 04/04/23 06:46 Pulse Ox 90 L 04/04/23 06:46 FiO2 Intake & Output 04/03/23 04/04/23 04/04/23 18:59 06:59 18:59 Intake Total 900 Balance 900 Intake: Oral 900 Other: # Voids 2 4 # Bowel Movements 0 - Labs CBC & Chem 7: 04/03/23 07:45
== END 2023-04-04 13:12 | disposition home health service (06) ==
LOC: OR 14:15 → 4SSUR 19:52 → OR 04-04 13:12
PROVIDERS: ATTEND Orthopaedic Surgery
DX: S86.812A Strain of other muscle(s) and tendon(s) at lower leg level, left leg, initial encounter (principal); S82.122A Displaced fracture of lateral condyle of left tibia, initial encounter for closed fracture; M21.372 Foot drop, left foot; G89.29 Other chronic pain; G89.18 Other acute postprocedural pain; I10 Essential (primary) hypertension; G62.9 Polyneuropathy, unspecified; F10.90 Alcohol use, unspecified, uncomplicated; Z79.899 Other long term (current) drug therapy; Z98.890 Other specified postprocedural states; Z96.651 Presence of right artificial knee joint; X58.XXXA Exposure to other specified factors, initial encounter
CPT/HCPCS: 0055T; 27447; 64447; 64999; 85025

== ENCOUNTER → 2023-06-05 | Outpatient (CLI) | payer MEDICARE ==
--- NOTE | 2023-06-05 15:26 | US ---
EXAMINATION TYPE: US pelvis complete transvag DATE OF EXAM: 06/05/2023 COMPARISON: NONE CLINICAL INDICATION: Female, 57 years old with history of N83.202 UNSPECIFIED OVARIAN CYST, LEFT SIDE ; ?left ovarian cyst? noted on outside imaging, no symptoms otherwise TECHNIQUE: Transvaginal (TV) and Transabdominal (TA) . Transabdominal sonographic images of the pel vis were acquired. Transvaginal sonographic images were medically necessary to better assess the fol lowing anatomy: Uterus, endometrium, ovaries Date of LMP: 8 years post-edu EXAM MEASUREMENTS: Uterus: 4.4x1.8x2.4 cm Endometrial Stripe: 0.5 cm Right Ovary: obscured by bowel Left Ovary: obscured by bowel 1. Uterus: Anteverted there is a heterogenous hypoechoic area noted at the level of the uterine ce rvix. 2. Endometrium: wnl 3. Right Ovary: Obscured by overlying bowel gas 4. Left Ovary: Obscured by overlying bowel gas 5. Bilateral Adnexa: Obscured by overlying bowel gas 6. Posterior cul-de-sac: wnl exam limited by overlying bowel obstructing the view of bialteral ovaries/adnexa IMPRESSION: there is a heterogenous hypoechoic area noted at the level of the uterine cervix. Relate clinically a nd consider direct visualization and/or hysteroscopy.
== END | disposition home or self-care (01) ==
LOC: RADUSWWP 14:33
PROVIDERS: ATTEND Family Medicine
DX: N83.202 Unspecified ovarian cyst, left side (principal)
CPT/HCPCS: 76830; 76856

== ENCOUNTER → 2024-04-26 | Outpatient (CLI) | payer MEDICARE ==
--- NOTE | 2024-04-26 14:26 | XR ---
EXAMINATION TYPE: XR toes RT DATE OF EXAM: 04/26/2024 COMPARISON: Right foot x-ray August 13, 2018 CLINICAL INDICATION: Female, 58 years old with history of [id number] RT TOE PAIN; swelling and redness ri ght second toe TECHNIQUE: Frontal and lateral view of the second toe right foot FINDINGS: There is now moderate to severe diffuse soft tissue swelling greatest proximally. There is now bone volume loss involving the second metatarsal head. No acute displaced fracture. Flexion and varus positioning of distal third through fifth toes is redemonstrated. IMPRESSION: As above. Cannot exclude acute osteomyelitis second metatarsal head. Consider further cli nical investigation with 3 phase bone scan and/or MRI study if felt clinically warranted. [facility], , 04/26/2024 2:24 PM
== END | disposition home or self-care (01) ==
LOC: RADXRYALE 14:01
PROVIDERS: ATTEND Physician Assistant Medical
DX: M79.674 Pain in right toe(s) (principal)

== ENCOUNTER 2024-05-21 09:17 | Day surgery (SDC) | payer MEDICARE ==
[~2024-05-21 09:17] MED LIST changes: -DEXAMETHASONE SOD PHOSPHATE 10 MG/ML 1 ML VIAL IV PRN; +MIDAZOLAM 2 MG/2 ML VIAL IV PRN; -ONDANSETRON 4 MG/2 ML VIAL IVP PRN; +Pre Op ABX Message 1 EACH MISC MISCELLANE ONE; -TRANEXAMIC 1,000 MG/100ML-NACL 1,000 MG in SALINE 1 100ML.BAG IV PRN; -TRANEXAMIC 1,000 MG/100ML-NACL 1,000 MG in SALINE 1 100ML.BAG IVPB PRN; +fentaNYL (PF) 50 MCG/ML 2 ML AMP IVP PRN
[2024-05-21] MEDS: IV FLUID CONTINUATION 1,000 ML IV ONE (10:05)
[2024-05-21 10:08] LABS: Glucose,Whole Blood 89 mg/dL (70-110)
[2024-05-21] MEDS: ONDANSETRON 4 MG/2 ML VIAL IVP ONE (10:09)
[2024-05-21] MEDS: DEXAMETHASONE SOD PHOSPHATE 4 MG/ML 1 ML VIAL IV ONE (10:09)
[2024-05-21] MEDS: LACTATED RINGERS 1,000 ML IV SCH (10:10)
[2024-05-21] MEDS: LIDOCAINE 1% (10MG/ML) FOR IV START INTRADERMA PRN (10:17)
[2024-05-21] MEDS ORDERED: SUCCINYLCHOLINE CHLORIDE 200 MG/10 ML VIAL IV ONE (11:14)
[2024-05-21] MEDS ORDERED: MIDAZOLAM 2 MG/2 ML VIAL ONE (11:14)
[2024-05-21] MEDS ORDERED: fentaNYL (PF) 50 MCG/ML 2 ML AMP ONE (11:14)
[2024-05-21] MEDS ORDERED: PHENYLEPHRINE-0.9% NACL SYG 1,000 MCG/10 ML SYRINGE ONE (11:14)
[2024-05-21] MEDS ORDERED: PROPOFOL 10 MG/ML 20 ML VIAL IV ONE (11:14)
[2024-05-21] MEDS: BUPIVACAINE (PF) 0.25% 30 ML VIAL SQ ONE (11:35)
--- NOTE | 2024-05-21 12:24 | P.OP ---
Date of Procedure: 05/21/24 Preoperative Diagnosis: Subacute osteomyelitis right second toe Postoperative Diagnosis: Comminuted, displaced fracture base of the middle phalanx right second toe Procedure(s) Performed: 1. Arthrotomy of IPJ right second toe 2. Partial excision of bone middle phalanx right second toe Implants: None Anesthesia: MARYA Surgeon: Alan Corbin Estimated Blood Loss (ml): 1 Pathology: other (1. Soft tissue swab for cultures; 2. Bone from middle phalanx second digit for pathology) Condition: stable Disposition: PACU Description of Procedure: The patient was brought into the op room and placed on table in the supine position. Timeout was taken to confirm correct patient identifiers, correct laterality of surgery, and correct procedure. Once all staff in the room was in agreement with the timeout, the patient was induced and placed under general anesthesia. A well-padded tourniquet was placed on the right ankle and 15 cc of 0.25% Marcaine was injected proximal to the second digit. The foot was then prepped and draped in the usual manner. The foot and leg were exsanguinated and the tourniquet inflated to 250 mmHg. Attention is directed over the second toe where a lazy S incision was made starting at the DIP joint and extending to the metatarsal phalangeal joint. The incision was deepened down to the subcutaneous layer careful to identify, void, and retract any neurovascular structures and cauterize any bleeding vessels. No purulent drainage or inflammatory tissue was encountered in the subcutaneous layer. A transverse incision was made through the capsule of the PIPJ and the collateral ligaments were transected to expose the joint. There was clear fluid within the joint and cultures were obtained. The cartilage on the head of the proximal phalanx was intact. There is no evidence of any necrosis in the proximal phalanx. There comminution of the base of the middle phalanx. The bone did not appear to be necrotic, there was no inflammatory tissue, and no presence of purulent drainage. All of the free fragments of bone were removed and will be sent to pathology for evaluation. The remainder of the middle phalanx had normal bone on palpation without any evidence of necrosis. The surgical site was thoroughly irrigated with antibiotic saline. The joint capsule was closed with 3-0 Vicryl. Skin closure was done with 3-0 nylon. Nonadherent gauze and a dry sterile dressing were applied to the foot. The tourniquet was released and capillary refill returned all digits on the right foot. The patient tolerated the above procedure and anesthesia well and left the operating room to recovery with vital signs stable.
[2024-05-21 12:32] VITALS: TEMP 98
[2024-05-21 12:32] LABS: Glucose,Whole Blood 125 mg/dL (70-110)
[2024-05-21 14:22] VITALS: RESP 18
[2024-05-21 14:39] VITALS: BP 114/70; PULSE 68
== END 2024-05-21 15:09 | disposition home or self-care (01) ==
LOC: OR 09:17
PROVIDERS: ATTEND Podiatrist
DX: M86.271 Subacute osteomyelitis, right ankle and foot (principal); G62.9 Polyneuropathy, unspecified; I10 Essential (primary) hypertension; Z79.899 Other long term (current) drug therapy
CPT/HCPCS: 87070; 87205; 87075; 28124; 28022; J2250; J0330; J1100; J2405; J3010; J2704; J2371; J0665